=== PATIENT | female | born 1985 | race Caucasian/White ===

== ENCOUNTER 2016-05-13 13:45 | Emergency (ER) | payer BC, OTHER ==
[~2016-05-13 13:45] MED LIST: /DULO30CA OR; /ONDA4TA PO; /PANT40TA PO; /SUCR1TA OR; ACET-654 PO; ALPR0.25 PO; BUSP10TA PO; BUSP5TA PO; CARA1TAB2 PO; CIPR500T3 PO; CIPR500T89 PO; ENTO3CAP5 PO; FLAG250T PO; FLAG500T PO; FLUO40CA PO; FOLI1TAB86 PO; HUMERA; HUMI20KI SC; HUMI40KI2 SC; IBUP200T45 PO; LOESTRIN FE OR; MESA24CASA PO; NORC5TAB PO; OMEP20CA3 PO; OMEP20TA7 OR; ONDA1TAB15 PO; PENT500C PO; PERC5TAB6 PO; PRED10TA2 OR; PRED20TA OR; PRED20TA PO; PRIL40CA PO; PROZ20CA11 PO; TYLE325T5 PO; XANA1TAB2 PO; ZOFR20TA PO; [UNRECOGNIZED DRUG - OTHER] OR; [UNRECOGNIZED DRUG - REMARK] PO; loestrin
[2016-05-13] MEDS ORDERED: HYDROmorphone HCL 1 MG/ML SYRINGE (J1170) As Ordered ONE (16:06)
[2016-05-13] MEDS ORDERED: ONDANSETRON 4MG/2ML VIAL (J2405) As Ordered ONE (16:07)
--- NOTE | 2016-05-13 17:01 | EDDOCDS ---
Nurse's Notes [facility] Name: Yajaira Darling Age: 30 yrs Sex: Female : 1985 Arrival Date: 05/13/2016 Time: 13:45 Bed I1 / M1 Private MD: Andreas Teague MD Diagnosis: Headache-Acute Presentation: 05/13 13:58 Presenting complaint: Patient states: severe headache all day .Tried using Excedrin kr3 migraine and Tylenol with no relief. This patient has no additional risk factors. Adult Sepsis Screening: The patient does not have new or worsening altered mentation. Patient's respiratory rate is less than 22. Systolic blood pressure is greater than 100. Patient has a qSOFA score of 1- Negative Sepsis Screen. Suicide/Homicide risk assessment- the patient denies having any suicidal and/or homicidal ideations and does not present with any other emotional, behavioral or mental health complaints. Status: Patient is not a director of career services or dependent. Transition of care: patient was not received from another setting of care. 13:58 Acuity: [place] Level 4 kr3 13:58 Method Of Arrival: Wheelchair kr3 Triage Assessment: 14:00 Headache History: This patient has a history of headaches and the character of this kr3 headache is like all previous headaches. General: Appears in no apparent distress, comfortable, Behavior is appropriate for age. Pain: Pain currently is 8 out of 10 on a pain scale. Pain began this AM Also complains of nausea. HIV screening NA for this visit Offered previously. Neurological: Level of Consciousness is awake, alert, Reports headache numbness photophobia weakness. Respiratory: Respiratory effort is even, unlabored. Derm: Skin is pink, warm & dry. Historical: - Allergies: Benadrylheart racing if PO only; Bentyldiarrhea; Iron CR; Remicade (Anaphylaxis); - Home Meds: 1. bupropion HCl 75 mg Oral tab twice a day 2. buspirone 10 mg Oral tab 2 tabs 2 times per day 3. humara 40 mg every other week 4. Lupron Depot intramuscular Unknown once moly 5. omeprazole 20 mg Oral cpDR 1 cap 2 times per day 6. Pentasa 500 mg Oral cpER twice a day 7. Percocet 5-325 mg Oral tab 1 tab as needed as needed 8. Xanax Oral 1 tab as needed 9. Zofran (as hydrochloride) 4 mg Oral tab 2 tabs as needed (Last dose: 05/13/2016 08:30) 10. Prozac 20 mg Oral cap 1 cap once daily 11. mupirocin 2 % Topical oint as needed - PMHx: Anxiety; Crohn's; Depression; Endometriosis; GERD; IUD; - PSHx: Cholecystectomy; Cesearean Section; Bowel resection; - Social history: Smoking status: Patient uses tobacco products, current every day smoker. No barriers to communication noted, The patient speaks fluent Sudanese, Speaks appropriately for age. - Family history: Not pertinent. - : The pt / caregiver states he / she is not on anticoagulants. Home medication list is obtained from the patient. - Exposure Risk Screening:: None identified. Screenin:26 Screening information is obtained from the patient. Fall risk: No risks identified. dls Assistance ADL's: requires no assistance with activities of daily living. Abuse/DV Screen: The patient / caregiver reports he/she is: not in a situation that causes fear, pain or injury. Nutritional screening: No deficits noted. Advance Directives: Currently, there is no health care proxy. There is no active DNR order. There is no living will. There is no Power of Manager Safe. Advance directive information has not previously been placed in an [facility] medical record. home support is adequate. Assessment: 16:25 General: Appears uncomfortable, well developed, well nourished, well groomed, Behavior dls is cooperative. Pain: Location: top of head, left temporal area and right temporal area. Neurological: No deficits noted. EENT: No deficits noted. Cardiovascular: No deficits noted. Respiratory: No deficits noted. GI: No deficits noted. Reports nausea. : No deficits noted. Derm: No deficits noted. Musculoskeletal: No deficits noted. Vital Signs: 13:48 BP 136 / 82; Pulse 99; Resp 18 S; Temp 96.7(O); Pulse Ox 99% on R/A; Weight 78.47 kg gr2 (R); Height 5 ft. 2 in. (157.48 cm) (R); Pain 10/10; 16:36 BP 117 / 75; Pulse 84; Resp 20; Temp 97.6; Pulse Ox 99% ; Pain 2/10; jam1 13:48 Body Mass Index 31.64 (78.47 kg, 157.48 cm) gr2 Vitals: 13:48 Log In Time: May 13, 2016 at 13:48. gr2 ED Course: 13:48 Patient visited by Chapincito Roche. gr2 13:48 Andreas Teague is Private Physician. gr2 13:48 Patient moved to Waiting gr2 13:49 Patient visited by Chapincito Roche. gr2 13:49 Patient moved to Pre RCE gr2 13:58 Triage Initiated kr3 14:32 Patient moved to Triage 1 sew 14:51 [facility] Payment Agreement was scanned into [employer] and attached to record. lg 15:49 Bella Malagon [facility] ef1 15:49 Ambrose Mace MD is Attending Physician. ef1 15:50 Patient visited by Bella Malagon PA-C. ef1 16:01 Patient moved to I1 / M1 sew 16:24 Inserted saline lock: 20 gauge in right forearm and blood collected. The patient dls tolerated the procedure well. No procedures done that require assistance. 16:26 The patient / caregiver is instructed regarding the plan of care and ED course. dls Accompanied by Family Member, Patient has correct armband on for positive identification. Bed in low position. Call light in reach. Side rails up X 1. Adult w/ patient. 16:31 Patient visited by Bella Malagon PA-C. ef1 16:35 Andreas Teague is Referral Physician. ef1 16:35 Michael Nash MD is Referral Physician. ef1 16:59 Discontinued IV lock intact, bleeding controlled, pressure dressing applied, No dls redness/swelling at site. Administered Medications: 16:23 Drug: NS 0.9% 1000 ml [sodium chloride 0.9 % intravenous solution] Route: IV; Rate: dls bolus; Site: right forearm; 16:23 Drug: Ondansetron 4 mg [ondansetron HCl 2 mg/mL intravenous solution (2 mL)] Route: dls IVP; Site: right forearm; 16:40 Follow up: Response: Nausea is resolved dls 16:23 Drug: Dilaudid - HYDROmorphone 0.5 mg [hydromorphone 1 mg/mL injection syringe (0.5 dls mL)] Route: IVP; Site: right forearm; 16:39 Follow up: Response: Pain is decreased dls Order Results: There are currently no results for this order. Outcome: 16:35 Discharge ordered by Provider. ef1 16:59 Discharge Assessment: Patient awake, alert and oriented x 3. No cognitive and/or dls functional deficits noted. Patient verbalized understanding of disposition instructions. patient administered narcotics - yes. Pt provided with safe discharge. The following High Risk Discharge criteria are identified: None. Discharged to home with family. Condition: stable Condition: improved. Discharge instructions given to patient, Instructed on discharge instructions, follow up and referral plans. Demonstrated understanding of instructions, Pt was receptive of discharge instructions/ teaching. No special radiology studies were completed. Property sent home with patient. 17:00 Patient left the ED. dls Signatures: Lyly Arambula, MAGUI RN dls Danitza Hemphill, PROGRAMMING DIRECTOR PROGRAMMING DIRECTOR jam1 Sam Sprague Reg Reg lg Robie, Kathleen,RN RN kr3 Bella Malagon, PA-C PA-C ef1 Priscilla Zayas Gainslee gr2 Corrections: (The following items were deleted from the chart) 14:02 13:58 Presenting complaint: Patient states: severe headache all day. kr3 kr3 MTDD
--- NOTE | 2016-05-13 17:01 | EDDOCDS ---
Physician Documentation [facility] Name: Yajaira Darling Age: 30 yrs Sex: Female : 1985 Arrival Date: 05/13/2016 Time: 13:45 Bed I1 / M1 Private MD: Andreas Teague MD Disposition: 05/13/16 16:35 Discharged to Home/Self Care. Impression: Headache - Acute. - Condition is Stable. - Discharge Instructions: General Headache Without Cause. - Medication Reconciliation, Local Pharmacy Hours, Family Work Release form. - Follow up: Andreas Teague; When: 1 - 2 days; Reason: Recheck today's complaints, Continuance of care. Follow up: Emergency Department; Reason: Worsening of conditions. Follow up: Michael Nash; When: Call to arrange an appointment; Reason: Further diagnostic work-up, Recheck today's complaints, Continuance of care. - Problem is new. - Symptoms have improved. Historical: - Allergies: Benadrylheart racing if PO only; Bentyldiarrhea; Iron CR; Remicade (Anaphylaxis); - Home Meds: 1. bupropion HCl 75 mg Oral tab twice a day 2. buspirone 10 mg Oral tab 2 tabs 2 times per day 3. humara 40 mg every other week 4. Lupron Depot intramuscular Unknown once moly 5. omeprazole 20 mg Oral cpDR 1 cap 2 times per day 6. Pentasa 500 mg Oral cpER twice a day 7. Percocet 5-325 mg Oral tab 1 tab as needed as needed 8. Xanax Oral 1 tab as needed 9. Zofran (as hydrochloride) 4 mg Oral tab 2 tabs as needed (Last dose: 05/13/2016 08:30) 10. Prozac 20 mg Oral cap 1 cap once daily 11. mupirocin 2 % Topical oint as needed - PMHx: Anxiety; Crohn's; Depression; Endometriosis; GERD; IUD; - PSHx: Cholecystectomy; Cesearean Section; Bowel resection; - Social history: Smoking status: Patient uses tobacco products, current every day smoker. No barriers to communication noted, The patient speaks fluent Malawian, Speaks appropriately for age. - Family history: Not pertinent. - : The pt / caregiver states he / she is not on anticoagulants. Home medication list is obtained from the patient. - Exposure Risk Screening:: None identified. Vital Signs: 05/13 13:48 BP 136 / 82; Pulse 99; Resp 18 S; Temp 96.7(O); Pulse Ox 99% on R/A; Weight 78.47 kg / gr2 173 lbs (R); Height 5 ft. 2 in. (157.48 cm) (R); Pain 10/10; 16:36 BP 117 / 75; Pulse 84; Resp 20; Temp 97.6; Pulse Ox 99% ; Pain 2/10; jam1 13:48 Body Mass Index 31.64 (78.47 kg, 157.48 cm) gr2 MDM: 14:51 [facility] Payment Agreement was scanned into [employer] and attached to record. lg 15:59 IV Saline Lock ordered. ef1 15:59 NS 0.9% 1000 ml IV at bolus once ordered. ef1 15:59 Ondansetron 4 mg IVP once ordered. ef1 15:59 Dilaudid - HYDROmorphone 0.5 mg IVP once ordered. ef1 16:28 Financial registration complete. gb Administered Medications: 16:23 Drug: NS 0.9% 1000 ml [sodium chloride 0.9 % intravenous solution] Route: IV; Rate: dls bolus; Site: right forearm; 16:23 Drug: Ondansetron 4 mg [ondansetron HCl 2 mg/mL intravenous solution (2 mL)] Route: dls IVP; Site: right forearm; 16:40 Follow up: Response: Nausea is resolved dls 16:23 Drug: Dilaudid - HYDROmorphone 0.5 mg [hydromorphone 1 mg/mL injection syringe (0.5 dls mL)] Route: IVP; Site: right forearm; 16:39 Follow up: Response: Pain is decreased dls Signatures: Lyly Arambula RN MAGUI dls Barbara Chen, Reg Reg gb Sam Sprague, Reg Reg lg Yue Fleming,RN RN kr3 Bella Malagon, REGINE PAEverette ef1 The chart was reviewed and I authenticate all verbal orders and agree with the evaluation and treatment provided.Attachments: 14:51 [facility] Payment Agreement lg MTDD
--- NOTE | 2016-05-15 18:01 | EDDOCDS ---
Physician Documentation [facility] Name: Yajaira Darling Age: 30 yrs Sex: Female : 1985 Arrival Date: 05/13/2016 Time: 13:45 Bed I1 / M1 Private MD: Andreas Teague MD Disposition: 05/13/16 16:35 Discharged to Home/Self Care. Impression: Headache - Acute. - Condition is Stable. - Discharge Instructions: General Headache Without Cause. - Medication Reconciliation, Local Pharmacy Hours, Family Work Release form. - Follow up: Andreas Teague; When: 1 - 2 days; Reason: Recheck today's complaints, Continuance of care. Follow up: Emergency Department; Reason: Worsening of conditions. Follow up: Michael Nash; When: Call to arrange an appointment; Reason: Further diagnostic work-up, Recheck today's complaints, Continuance of care. - Problem is new. - Symptoms have improved. Historical: - Allergies: Benadrylheart racing if PO only; Bentyldiarrhea; Iron CR; Remicade (Anaphylaxis); - Home Meds: 1. bupropion HCl 75 mg Oral tab twice a day 2. buspirone 10 mg Oral tab 2 tabs 2 times per day 3. humara 40 mg every other week 4. Lupron Depot intramuscular Unknown once moly 5. omeprazole 20 mg Oral cpDR 1 cap 2 times per day 6. Pentasa 500 mg Oral cpER twice a day 7. Percocet 5-325 mg Oral tab 1 tab as needed as needed 8. Xanax Oral 1 tab as needed 9. Zofran (as hydrochloride) 4 mg Oral tab 2 tabs as needed (Last dose: 05/13/2016 08:30) 10. Prozac 20 mg Oral cap 1 cap once daily 11. mupirocin 2 % Topical oint as needed - PMHx: Anxiety; Crohn's; Depression; Endometriosis; GERD; IUD; - PSHx: Cholecystectomy; Cesearean Section; Bowel resection; - Social history: Smoking status: Patient uses tobacco products, current every day smoker. No barriers to communication noted, The patient speaks fluent Micronesian, Speaks appropriately for age. - Family history: Not pertinent. - : The pt / caregiver states he / she is not on anticoagulants. Home medication list is obtained from the patient. - Exposure Risk Screening:: None identified. Vital Signs: 05/13 13:48 BP 136 / 82; Pulse 99; Resp 18 S; Temp 96.7(O); Pulse Ox 99% on R/A; Weight 78.47 kg / gr2 173 lbs (R); Height 5 ft. 2 in. (157.48 cm) (R); Pain 10/10; 16:36 BP 117 / 75; Pulse 84; Resp 20; Temp 97.6; Pulse Ox 99% ; Pain 2/10; jam1 13:48 Body Mass Index 31.64 (78.47 kg, 157.48 cm) gr2 MDM: 14:51 [facility] Payment Agreement was scanned into [employer] and attached to record. lg 15:59 IV Saline Lock ordered. ef1 15:59 NS 0.9% 1000 ml IV at bolus once ordered. ef1 15:59 Ondansetron 4 mg IVP once ordered. ef1 15:59 Dilaudid - HYDROmorphone 0.5 mg IVP once ordered. ef1 16:28 Financial registration complete. 05/14 12:40 T-Sheet-- Draft Copy was scanned into [employer] and attached to record. Administered Medications: 05/13 16:23 Drug: NS 0.9% 1000 ml [sodium chloride 0.9 % intravenous solution] Route: IV; Rate: dls bolus; Site: right forearm; 16:23 Drug: Ondansetron 4 mg [ondansetron HCl 2 mg/mL intravenous solution (2 mL)] Route: dls IVP; Site: right forearm; 16:40 Follow up: Response: Nausea is resolved dls 16:23 Drug: Dilaudid - HYDROmorphone 0.5 mg [hydromorphone 1 mg/mL injection syringe (0.5 dls mL)] Route: IVP; Site: right forearm; 16:39 Follow up: Response: Pain is decreased dls Signatures: Lyly Arambula RN RN dls Barbara Chen, Reg Reg gb Sam Sprague, Reg Reg lg Yue Fleming RN RN kr3 Bella Malagon, PADomingoC PADomingoC ef1 The chart was reviewed and I authenticate all verbal orders and agree with the evaluation and treatment provided.Attachments: 14:51 [facility] Payment Agreement lg 05/14 12:40 T-Sheet-- Draft Copy gb Chart Complete MTDD
--- NOTE | 2016-05-15 18:01 | EDDOCDS ---
Physician Documentation [facility] Name: Yajaira Darling Age: 30 yrs Sex: Female : 1985 Arrival Date: 05/13/2016 Time: 13:45 Bed I1 / M1 Private MD: Andreas Teague MD Disposition: 05/13/16 16:35 Discharged to Home/Self Care. Impression: Headache - Acute. - Condition is Stable. - Discharge Instructions: General Headache Without Cause. - Medication Reconciliation, Local Pharmacy Hours, Family Work Release form. - Follow up: Andreas Teague; When: 1 - 2 days; Reason: Recheck today's complaints, Continuance of care. Follow up: Emergency Department; Reason: Worsening of conditions. Follow up: Michael Nash; When: Call to arrange an appointment; Reason: Further diagnostic work-up, Recheck today's complaints, Continuance of care. - Problem is new. - Symptoms have improved. Historical: - Allergies: Benadrylheart racing if PO only; Bentyldiarrhea; Iron CR; Remicade (Anaphylaxis); - Home Meds: 1. bupropion HCl 75 mg Oral tab twice a day 2. buspirone 10 mg Oral tab 2 tabs 2 times per day 3. humara 40 mg every other week 4. Lupron Depot intramuscular Unknown once moly 5. omeprazole 20 mg Oral cpDR 1 cap 2 times per day 6. Pentasa 500 mg Oral cpER twice a day 7. Percocet 5-325 mg Oral tab 1 tab as needed as needed 8. Xanax Oral 1 tab as needed 9. Zofran (as hydrochloride) 4 mg Oral tab 2 tabs as needed (Last dose: 05/13/2016 08:30) 10. Prozac 20 mg Oral cap 1 cap once daily 11. mupirocin 2 % Topical oint as needed - PMHx: Anxiety; Crohn's; Depression; Endometriosis; GERD; IUD; - PSHx: Cholecystectomy; Cesearean Section; Bowel resection; - Social history: Smoking status: Patient uses tobacco products, current every day smoker. No barriers to communication noted, The patient speaks fluent Andorran, Speaks appropriately for age. - Family history: Not pertinent. - : The pt / caregiver states he / she is not on anticoagulants. Home medication list is obtained from the patient. - Exposure Risk Screening:: None identified. Vital Signs: 05/13 13:48 BP 136 / 82; Pulse 99; Resp 18 S; Temp 96.7(O); Pulse Ox 99% on R/A; Weight 78.47 kg / gr2 173 lbs (R); Height 5 ft. 2 in. (157.48 cm) (R); Pain 10/10; 16:36 BP 117 / 75; Pulse 84; Resp 20; Temp 97.6; Pulse Ox 99% ; Pain 2/10; jam1 13:48 Body Mass Index 31.64 (78.47 kg, 157.48 cm) gr2 MDM: 14:51 [facility] Payment Agreement was scanned into [employer] and attached to record. lg 15:59 IV Saline Lock ordered. ef1 15:59 NS 0.9% 1000 ml IV at bolus once ordered. ef1 15:59 Ondansetron 4 mg IVP once ordered. ef1 15:59 Dilaudid - HYDROmorphone 0.5 mg IVP once ordered. ef1 16:28 Financial registration complete. 05/14 12:40 T-Sheet-- Draft Copy was scanned into [employer] and attached to record. Administered Medications: 05/13 16:23 Drug: NS 0.9% 1000 ml [sodium chloride 0.9 % intravenous solution] Route: IV; Rate: dls bolus; Site: right forearm; 16:23 Drug: Ondansetron 4 mg [ondansetron HCl 2 mg/mL intravenous solution (2 mL)] Route: dls IVP; Site: right forearm; 16:40 Follow up: Response: Nausea is resolved dls 16:23 Drug: Dilaudid - HYDROmorphone 0.5 mg [hydromorphone 1 mg/mL injection syringe (0.5 dls mL)] Route: IVP; Site: right forearm; 16:39 Follow up: Response: Pain is decreased dls Signatures: Lyly Arambula RN RN dls Barbara Chen, Reg Reg gb Sam Sprague, Reg Reg lg Yue Fleming RN RN kr3 Bella Malagon, PADomingoC PADomingoC ef1 The chart was reviewed and I authenticate all verbal orders and agree with the evaluation and treatment provided.Attachments: 14:51 [facility] Payment Agreement lg 05/14 12:40 T-Sheet-- Draft Copy gb Chart Complete MTDD
--- NOTE | 2016-05-15 18:01 | EDDOCDS ---
Nurse's Notes [facility] Name: Yajaira Darling Age: 30 yrs Sex: Female : 1985 Arrival Date: 05/13/2016 Time: 13:45 Bed I1 / M1 Private MD: Andreas Teague MD Diagnosis: Headache-Acute Presentation: 05/13 13:58 Presenting complaint: Patient states: severe headache all day .Tried using Excedrin kr3 migraine and Tylenol with no relief. This patient has no additional risk factors. Adult Sepsis Screening: The patient does not have new or worsening altered mentation. Patient's respiratory rate is less than 22. Systolic blood pressure is greater than 100. Patient has a qSOFA score of 1- Negative Sepsis Screen. Suicide/Homicide risk assessment- the patient denies having any suicidal and/or homicidal ideations and does not present with any other emotional, behavioral or mental health complaints. Status: Patient is not a services engineer or dependent. Transition of care: patient was not received from another setting of care. 13:58 Acuity: [place] Level 4 kr3 13:58 Method Of Arrival: Wheelchair kr3 Triage Assessment: 14:00 Headache History: This patient has a history of headaches and the character of this kr3 headache is like all previous headaches. General: Appears in no apparent distress, comfortable, Behavior is appropriate for age. Pain: Pain currently is 8 out of 10 on a pain scale. Pain began this AM Also complains of nausea. HIV screening NA for this visit Offered previously. Neurological: Level of Consciousness is awake, alert, Reports headache numbness photophobia weakness. Respiratory: Respiratory effort is even, unlabored. Derm: Skin is pink, warm & dry. Historical: - Allergies: Benadrylheart racing if PO only; Bentyldiarrhea; Iron CR; Remicade (Anaphylaxis); - Home Meds: 1. bupropion HCl 75 mg Oral tab twice a day 2. buspirone 10 mg Oral tab 2 tabs 2 times per day 3. humara 40 mg every other week 4. Lupron Depot intramuscular Unknown once moly 5. omeprazole 20 mg Oral cpDR 1 cap 2 times per day 6. Pentasa 500 mg Oral cpER twice a day 7. Percocet 5-325 mg Oral tab 1 tab as needed as needed 8. Xanax Oral 1 tab as needed 9. Zofran (as hydrochloride) 4 mg Oral tab 2 tabs as needed (Last dose: 05/13/2016 08:30) 10. Prozac 20 mg Oral cap 1 cap once daily 11. mupirocin 2 % Topical oint as needed - PMHx: Anxiety; Crohn's; Depression; Endometriosis; GERD; IUD; - PSHx: Cholecystectomy; Cesearean Section; Bowel resection; - Social history: Smoking status: Patient uses tobacco products, current every day smoker. No barriers to communication noted, The patient speaks fluent [place], Speaks appropriately for age. - Family history: Not pertinent. - : The pt / caregiver states he / she is not on anticoagulants. Home medication list is obtained from the patient. - Exposure Risk Screening:: None identified. Screenin:26 Screening information is obtained from the patient. Fall risk: No risks identified. dls Assistance ADL's: requires no assistance with activities of daily living. Abuse/DV Screen: The patient / caregiver reports he/she is: not in a situation that causes fear, pain or injury. Nutritional screening: No deficits noted. Advance Directives: Currently, there is no health care proxy. There is no active DNR order. There is no living will. There is no Power of High Density Press Operator. Advance directive information has not previously been placed in an [facility] medical record. home support is adequate. Assessment: 16:25 General: Appears uncomfortable, well developed, well nourished, well groomed, Behavior dls is cooperative. Pain: Location: top of head, left temporal area and right temporal area. Neurological: No deficits noted. EENT: No deficits noted. Cardiovascular: No deficits noted. Respiratory: No deficits noted. GI: No deficits noted. Reports nausea. : No deficits noted. Derm: No deficits noted. Musculoskeletal: No deficits noted. Vital Signs: 13:48 BP 136 / 82; Pulse 99; Resp 18 S; Temp 96.7(O); Pulse Ox 99% on R/A; Weight 78.47 kg gr2 (R); Height 5 ft. 2 in. (157.48 cm) (R); Pain 10/10; 16:36 BP 117 / 75; Pulse 84; Resp 20; Temp 97.6; Pulse Ox 99% ; Pain 2/10; jam1 13:48 Body Mass Index 31.64 (78.47 kg, 157.48 cm) gr2 Vitals: 13:48 Log In Time: May 13, 2016 at 13:48. gr2 ED Course: 13:48 Patient visited by Chapincito Roche. gr2 13:48 Andreas Teague is Private Physician. gr2 13:48 Patient moved to Waiting gr2 13:49 Patient visited by Chapincito Roche. gr2 13:49 Patient moved to Pre RCE gr2 13:58 Triage Initiated kr3 14:32 Patient moved to Triage 1 sew 14:51 [facility] Payment Agreement was scanned into [employer] and attached to record. lg 15:49 Bella Malagon [facility]-C [facility] ef1 15:49 Ambrose Mace MD is Attending Physician. ef1 15:50 Patient visited by Bella Malagon PA-C. ef1 16:01 Patient moved to I1 / M1 sew 16:24 Inserted saline lock: 20 gauge in right forearm and blood collected. The patient dls tolerated the procedure well. No procedures done that require assistance. 16:26 The patient / caregiver is instructed regarding the plan of care and ED course. dls Accompanied by Family Member, Patient has correct armband on for positive identification. Bed in low position. Call light in reach. Side rails up X 1. Adult w/ patient. 16:31 Patient visited by Bella Malagon PA-C. ef1 16:35 Andreas Teague is Referral Physician. ef1 16:35 Michael Nash MD is Referral Physician. ef1 16:59 Discontinued IV lock intact, bleeding controlled, pressure dressing applied, No dls redness/swelling at site. 05/14 12:40 T-Sheet-- Draft Copy was scanned into [employer] and attached to record. gb Administered Medications: 05/13 16:23 Drug: NS 0.9% 1000 ml [sodium chloride 0.9 % intravenous solution] Route: IV; Rate: dls bolus; Site: right forearm; 16:23 Drug: Ondansetron 4 mg [ondansetron HCl 2 mg/mL intravenous solution (2 mL)] Route: dls IVP; Site: right forearm; 16:40 Follow up: Response: Nausea is resolved dls 16:23 Drug: Dilaudid - HYDROmorphone 0.5 mg [hydromorphone 1 mg/mL injection syringe (0.5 dls mL)] Route: IVP; Site: right forearm; 16:39 Follow up: Response: Pain is decreased dls Order Results: There are currently no results for this order. Outcome: 16:35 Discharge ordered by Provider. ef1 16:59 Discharge Assessment: Patient awake, alert and oriented x 3. No cognitive and/or dls functional deficits noted. Patient verbalized understanding of disposition instructions. patient administered narcotics - yes. Pt provided with safe discharge. The following High Risk Discharge criteria are identified: None. Discharged to home with family. Condition: stable Condition: improved. Discharge instructions given to patient, Instructed on discharge instructions, follow up and referral plans. Demonstrated understanding of instructions, Pt was receptive of discharge instructions/ teaching. No special radiology studies were completed. Property sent home with patient. 17:00 Patient left the ED. dls Signatures: Lyly Arambula, RN RN dls Danitza Hemphill, CHARGE ATTENDANT CHARGE ATTENDANT jam1 Barbara Chen, Reg Reg gb Sam Sprague, Reg Reg lg Yue Fleming,RN RN kr3 Bella Malagon, PA-C PA-C ef1 Priscilla Zayas Gainslee gr2 Corrections: (The following items were deleted from the chart) 14:02 13:58 Presenting complaint: Patient states: severe headache all day. kr3 kr3 Chart Complete MTDD
== END 2016-05-13 17:00 | disposition home or self-care (01) ==
LOC: M ED 13:45
DX: R51 Headache (principal); R11.0 Nausea; K50.90 Crohn's disease, unspecified, without complications; F41.9 Anxiety disorder, unspecified; F32.9 Major depressive disorder, single episode, unspecified; N80.9 Endometriosis, unspecified; K21.9 Gastro-esophageal reflux disease without esophagitis; F17.210 Nicotine dependence, cigarettes, uncomplicated; Z79.891 Long term (current) use of opiate analgesic; Z79.899 Other long term (current) drug therapy; Z88.8 Allergy status to other drugs, medicaments and biological substances
CPT/HCPCS: 36415; 96374; 96375; 99284; J1170; J2405

== ENCOUNTER 2016-07-25 10:23 | Emergency (ER) | payer BC, OTHER ==
[~2016-07-25] VITALS: Ht 157.5 cm; Wt 77.1 kg
[~2016-07-25 10:23] MED LIST changes: +NORC1TAB4 PO; -NORC5TAB PO
[2016-07-25] MEDS ORDERED: NS 1,000 ML IV ONE (11:00)
[2016-07-25] MEDS ORDERED: HYDROmorphone HCL 1 MG/ML SYRINGE (J1170) IV ONE ×2 (11:00→13:15)
[2016-07-25] MEDS ORDERED: ONDANSETRON 4MG/2ML VIAL (J2405) IV ONE (11:00)
[2016-07-25 12:48] LABS: BASO % 0.3 % (0.0-1.0); EOS # 0.1 K/mm3 (0.0-0.50); EOS % 1.8 % (0.0-3.0); LARGE UNSTAINED CELL # 0.1 K/mm3 (0.0-0.4); LARGE UNSTAINED CELL % 1.7 % (0.0-4.0); LYMPH # 0.7 K/mm3 (1.5-4.5); LYMPH % 12.5 % (24.0-44.0); MEAN CORPUSCULAR HEMOGLOBIN 25.5 pg (27.0-33.0); MEAN CORPUSCULAR HGB CONC 30.7 g/dl (32.0-36.5); MONO # 0.6 K/mm3 (0.0-0.8); MONO % 12.1 % (0.0-5.0); NEUTROPHILS # 3.4 K/mm3 (1.8-7.7); NEUTROPHILS % 71.6 % (36.0-66.0); PLATELET COUNT, AUTOMATED 368 k/mm3 (150-450); RED CELL DISTRIBUTION WIDTH 14.6 % (11.5-14.5); WHITE BLOOD COUNT 4.7 K/mm3 (4.0-10.0)
[2016-07-25] MEDS ORDERED: ISOVUE-370 76% 100ML VIAL (Q9967) As Ordered ONE (12:51)
[2016-07-25 13:03] LABS: ALBUMIN 2.6 GM/DL (3.2-5.2); ALBUMIN/GLOBULIN RATIO 0.87 (1.00-1.93); ALKALINE PHOSPHATASE 75 U/L (45-117); ALT/SGPT 21 U/L (12-78); AMYLASE 34 U/L (25-115); ANION GAP 8 MEQ/L (8-16); AST/SGOT 18 U/L (15-37); BILIRUBIN,DIRECT 0.1 MG/DL (0.0-0.2); BILIRUBIN,TOTAL 0.3 MG/DL (0.2-1.0); BLOOD UREA NITROGEN 14 MG/DL (7-18); CARBON DIOXIDE LEVEL 25 MEQ/L (21-32); CHLORIDE LEVEL 109 MEQ/L (98-107); CREATININE FOR GFR 0.64 MG/DL (0.55-1.02); GLOMERULAR FILTRATION RATE > 60.0 (>60); GLUCOSE, FASTING 89 MG/DL (70-105); POTASSIUM SERUM 3.5 MEQ/L (3.5-5.1); SODIUM LEVEL 142 MEQ/L (136-145); TOTAL PROTEIN 5.6 GM/DL (6.4-8.2)
[2016-07-25 14:08] VITALS: BP 111/65
--- NOTE | 2016-07-25 14:28 | REP ---
CT abdomen pelvis with IV contrast but without bowel contrast: Comparison is 03/24/2016. The patient has a history of endometriosis and Crohn disease and states she has had a cholecystectomy and a 3 inches of small intestine removed and has had a colon resection. The patient states she has had two c-sections.. She complains of abdominal pain. The visualized lung brennan are unremarkable. The hepatic parenchyma is homogeneous. The gallbladder surgically absent. Pancreas and spleen are unremarkable. The adrenals and kidneys are unremarkable. The abdominal aorta is unremarkable. There are sequential loops of small bowel that are dilated in the mid abdomen. This may represent multiple small bowel structures. Additionally, on the right there is a an elongated segment of small bowel that is narrowed, possibly an elongated stricture. There is no evidence of small bowel obstruction. There are circumferential surgical gabriel in the more proximal dilated small bowel consistent with history of small bowel resection. There is no small bowel obstruction. There is no distension of colonic loops. No surgical suture lines are identified in the colon. The terminal ileum is normal appearance. There is wall thickening enhancement of the mid and a distal small bowel loops compatible with enteritis. There is no ascites, however, there are multiple mesenteric lymph nodes many of which are borderline enlarged. This is unchanged. Pelvis: There is no ascites or adenopathy. There is an IUD in the endometrial canal. The uterus is otherwise unremarkable. The adnexa are unremarkable. Impression: There are multiple segmental zones of dilated small bowel, possibly from multiple small-bowel strictures. There is a surgical staple line in the more proximal dilated small bowel consistent with the history of partial small bowel resection. There is an elongated narrowed loop of small bowel in the abdomen on the right, possibly an elongated stricture. However, there is no evidence of small bowel obstruction. The terminal ileum has a normal appearance. However, there are multiple loops of mid small bowel that demonstrate wall thickening and enhancement compatible with enteritis. There are numerous mesenteric nodes most of which are borderline enlarged. There is no ascites. There is an IUD in the uterus. The patient has a cholecystectomy. Signed by Lauri Parmar MD 07/25/2016 02:20 P
[2016-07-25] MEDS ORDERED: PERC5TAB6 PO (14:43)
--- NOTE | 2016-07-27 14:28 | ED PDOC ---
Post-Departure Follow-Up dr jaspreet lomeli faxed formal report of ct abd/p for fu arnoldg Brent Lim MD Jul 27, 2016 14:28
== END 2016-07-25 14:51 | disposition home or self-care (01) ==
LOC: M ED 11:04
DX: K50.018 Crohn's disease of small intestine with other complication (principal); K56.60 Unspecified intestinal obstruction; N80.9 Endometriosis, unspecified; F33.9 Major depressive disorder, recurrent, unspecified; F17.210 Nicotine dependence, cigarettes, uncomplicated; Z79.899 Other long term (current) drug therapy; Z79.818 Long term (current) use of other agents affecting estrogen receptors and estrogen levels; Z88.8 Allergy status to other drugs, medicaments and biological substances; Z91.041 Radiographic dye allergy status; Z88.5 Allergy status to narcotic agent; Z90.49 Acquired absence of other specified parts of digestive tract
CPT/HCPCS: 36415; 74177; 80048; 80076; 81001; 81025; 82150; 83690; 85025; 96361; 96374; 96375; 96376; 99283; J1170; J2405; Q9967

== ENCOUNTER 2016-09-26 04:04 | Emergency (ER) | payer BC, OTHER ==
[~2016-09-26] VITALS: Ht 157.5 cm; Wt 80.7 kg
[2016-09-26 04:10] VITALS: BP 135/89
[2016-09-26 05:56] LABS: BASO % 0.2 % (0.0-1.0); EOS # 0.4 K/mm3 (0.0-0.50); EOS % 4.3 % (0.0-3.0); LARGE UNSTAINED CELL # 0.1 K/mm3 (0.0-0.4); LARGE UNSTAINED CELL % 1.5 % (0.0-4.0); LYMPH # 1.5 K/mm3 (1.5-4.5); LYMPH % 18.7 % (24.0-44.0); MEAN CORPUSCULAR HEMOGLOBIN 25.5 pg (27.0-33.0); MEAN CORPUSCULAR HGB CONC 30.7 g/dl (32.0-36.5); MEAN CORPUSCULAR VOLUME 83.2 fl (80.0-96.0); MONO # 0.4 K/mm3 (0.0-0.8); MONO % 4.9 % (0.0-5.0); NEUTROPHILS # 5.7 K/mm3 (1.8-7.7); NEUTROPHILS % 70.3 % (36.0-66.0); PLATELET COUNT, AUTOMATED 412 k/mm3 (150-450); RED CELL DISTRIBUTION WIDTH 14.7 % (11.5-14.5); WHITE BLOOD COUNT 8.2 K/mm3 (4.0-10.0)
[2016-09-26 06:03] LABS: CONTROL LINE HCG INT CTR LINE PRESENT
[2016-09-26 06:09] LABS: ANION GAP 6 MEQ/L (8-16); BLOOD UREA NITROGEN 13 MG/DL (7-18); CALCIUM LEVEL 8.5 MG/DL (8.5-10.1); CARBON DIOXIDE LEVEL 28 MEQ/L (21-32); CHLORIDE LEVEL 107 MEQ/L (98-107); CREATININE FOR GFR 0.74 MG/DL (0.55-1.02); GLOMERULAR FILTRATION RATE > 60.0 (>60); GLUCOSE, FASTING 85 MG/DL (70-105); POTASSIUM SERUM 3.8 MEQ/L (3.5-5.1); SODIUM LEVEL 141 MEQ/L (136-145)
[2016-09-26] MEDS ORDERED: ISOVUE-370 76% 100ML VIAL (Q9967) As Ordered ONE (06:22)
--- NOTE | 2016-09-26 06:51 | REP ---
Clinical: Post surgical abdominal pain. Evaluate for abscess. Comparison: 07/25/2016. Technique: Axial contrast enhanced images from the lung bases to the pubic symphysis using 100 ml Isovue 370 intravenous contrast material with coronal and sagittal re-formations. Findings: Lung bases demonstrate minimal posterior basilar dependent changes. Visualized heart and pericardium normal. Liver, spleen, pancreas, bilateral adrenal glands and kidneys are normal. The patient is status post cholecystectomy. Evaluation of the enteric system demonstrates small bowel anastomoses in the left mid abdomen with adjacent lymph nodes measuring up to approximately 12 mm short axis diameter which are nonspecific in the postoperative setting. There is no evidence for bowel obstruction, and previously suggested enteritis appears to have resolved. No free air, free fluid, drainable collection/abscess identified. Right lower quadrant demonstrates normal terminal ileum and appendix. Few sigmoid diverticula noted without acute diverticulitis. Pelvis demonstrates normal bladder and age-appropriate uterus/adnexa with IUD in satisfactory position. Trace mesenteric stranding in the pelvis and the midline abdomen along with small amount of gas in the midline subcutaneous tissues again consistent with recent surgery and no associated drainable collection/abscess. Vascular structures are intact and normal. Musculoskeletal structures are intact and normal. Impression: 1. Postsurgical changes as described above appear mildly improved when compared to prior examination. Few residual mesenteric lymph nodes measuring up to 12 mm short axis diameter are nonspecific. No evidence for free fluid, free air, or drainable collection/abscess. 2. Small bowel an anastomosis appears normal and the previously suggested acute enteritis appears to have resolved. 3. A small amount of residual foci of gas in the midline subcutaneous tissues adjacent to the postsurgical granulation tissue likely represents continued residual subtle postoperative changes. Signed by Juan Antonio Mccabe MD 09/26/2016 06:43 A
== END 2016-09-26 07:09 | disposition home or self-care (01) ==
LOC: M ED 04:56
DX: T81.89XA Other complications of procedures, not elsewhere classified, initial encounter (principal); Z90.49 Acquired absence of other specified parts of digestive tract; K50.919 Crohn's disease, unspecified, with unspecified complications; Z79.899 Other long term (current) drug therapy; Z88.5 Allergy status to narcotic agent; Z91.041 Radiographic dye allergy status; Z88.8 Allergy status to other drugs, medicaments and biological substances; Y92.9 Unspecified place or not applicable; Y93.9 Activity, unspecified; X58.XXXA Exposure to other specified factors, initial encounter; Y99.9 Unspecified external cause status
CPT/HCPCS: 74177; 80048; 84703; 85025; 99282; Q9967

== ENCOUNTER 2017-09-07 13:38 | Emergency (ER) | payer BC, OTHER ==
[2017-09-07 13:41] LABS: BASO % 0.3 % (0.0-1.0); EOS # 0.1 10^3/uL (0.0-0.50); EOS % 1.9 % (0.0-3.0); HEMATOCRIT 42.2 % (36.0-47.0); HEMOGLOBIN 13.9 g/dl (12.0-15.5); IMMATURE GRANULOCYTE % 0.3 % (0-3.0); LYMPH # 1.1 10^3/uL (1.5-4.5); LYMPH % 15.1 % (24.0-44.0); MEAN CORPUSCULAR HEMOGLOBIN 29.7 pg (27.0-33.0); MEAN CORPUSCULAR HGB CONC 32.9 g/dl (32.0-36.5); MEAN CORPUSCULAR VOLUME 90.2 fl (80.0-96.0); MONO # 0.6 10^3/uL (0.0-0.8); MONO % 8.3 % (0.0-5.0); NEUTROPHILS # 5.2 10^3/uL (1.8-7.7); NEUTROPHILS % 74.1 % (36.0-66.0); PLATELET COUNT, AUTOMATED 259 10^3/uL (150-450); RED BLOOD COUNT 4.68 10^6/uL (4.00-5.40); RED CELL DISTRIBUTION WIDTH 14.2 % (11.5-14.5)
[2017-09-07] MEDS: NS 1,000 ML IV (13:45)
[2017-09-07] MEDS: METOCLOPRAMIDE INJ 10MG/2ML VIAL (J2765) IV (13:46)
[2017-09-07] MEDS: HYDROmorphone HCL 1 MG/ML SYRINGE (J1170) IV (13:46)
[2017-09-07 14:07] LABS: ALBUMIN 3.2 GM/DL (3.2-5.2); ALBUMIN/GLOBULIN RATIO 0.94 (1.00-1.93); ALKALINE PHOSPHATASE 108 U/L (45-117); ALT/SGPT 80 U/L (12-78); ANION GAP 6 MEQ/L (8-16); AST/SGOT 74 U/L (7-37); BILIRUBIN,TOTAL 0.3 MG/DL (0.2-1.0); BLOOD UREA NITROGEN 7 MG/DL (7-18); CALCIUM LEVEL 8.1 MG/DL (8.5-10.1); CARBON DIOXIDE LEVEL 24 MEQ/L (21-32); CHLORIDE LEVEL 111 MEQ/L (98-107); CREATININE FOR GFR 0.51 MG/DL (0.55-1.30); GLOMERULAR FILTRATION RATE > 60.0 (>60); GLUCOSE, FASTING 86 MG/DL (70-100); POTASSIUM SERUM 3.6 MEQ/L (3.5-5.1); SODIUM LEVEL 141 MEQ/L (136-145); TOTAL PROTEIN 6.6 GM/DL (6.4-8.2)
== END 2017-09-07 15:28 | disposition home or self-care (01) ==
LOC: M ED 13:38
DX: K50.90 Crohn's disease, unspecified, without complications (principal); N80.9 Endometriosis, unspecified; M54.9 Dorsalgia, unspecified; Z72.0 Tobacco use; Z79.899 Other long term (current) drug therapy; Z88.5 Allergy status to narcotic agent; Z88.8 Allergy status to other drugs, medicaments and biological substances; Z91.041 Radiographic dye allergy status
CPT/HCPCS: J1170

== ENCOUNTER 2019-06-08 12:31 | Emergency (ER) | payer BC, OTHER ==
[~2019-06-08] VITALS: Ht 157.5 cm; Wt 90.7 kg
[~2019-06-08 12:31] MED LIST changes: -/DULO30CA OR; -/ONDA4TA PO; -/PANT40TA PO; -/SUCR1TA OR; -ACET-654 PO; +ACET1TAB55 PO; +CARA1TAB6 PO; +CIPR-249 PO; -CIPR500T89 PO; +CYMB1CAP5 OR; +HUMI40KI2; +HYDR-3715 PO; -NORC1TAB4 PO; +NORC1TAB7 PO; +OMEP1CAP73 PO; -OMEP20CA3 PO; +ONDA-1 PO; +ONDA-83 PO; -ONDA1TAB15 PO; +PERC5TAB12 PO; -PERC5TAB6 PO; +PROT1TAB2 PO; +SUCR1TAB56 OR; -ZOFR20TA PO; +ZOFR4TAB16 PO
[2019-06-08 13:23] LABS: BASO % 0.1 % (0.0-1.0); EOS % 0.3 % (0.0-3.0); HEMATOCRIT 42.2 % (36.0-47.0); HEMOGLOBIN 13.8 g/dl (12.0-15.5); LYMPH # 3.5 10^3/uL (1.5-5.0); LYMPH % 24.2 % (24.0-44.0); MEAN CORPUSCULAR HEMOGLOBIN 29.3 pg (27.0-33.0); MEAN CORPUSCULAR HGB CONC 32.7 g/dl (32.0-36.5); MEAN CORPUSCULAR VOLUME 89.6 fl (80.0-96.0); MONO % 7.2 % (0.0-5.0); NEUTROPHILS # 9.8 10^3/uL (1.5-8.5); NEUTROPHILS % 67.7 % (36.0-66.0); PLATELET COUNT, AUTOMATED 332 10^3/uL (150-450); RED BLOOD COUNT 4.71 10^6/uL (4.00-5.40); WHITE BLOOD COUNT 14.5 10^3/uL (4.0-10.0)
[2019-06-08] MEDS ORDERED: MERC50TA2 PO (13:29)
[2019-06-08] MEDS ORDERED: PRED20TA PO (13:29)
[2019-06-08 13:52] LABS: ALBUMIN 3.5 GM/DL (3.2-5.2); ALT/SGPT 22 U/L (12-78); BILIRUBIN,DIRECT < 0.1 MG/DL (0.0-0.2); BILIRUBIN,TOTAL 0.5 MG/DL (0.2-1.0); BLOOD UREA NITROGEN 13 MG/DL (7-18); CALCIUM LEVEL 9.1 MG/DL (8.5-10.1); CARBON DIOXIDE LEVEL 25 MEQ/L (21-32); CHLORIDE LEVEL 109 MEQ/L (98-107); CREATININE FOR GFR 0.71 MG/DL (0.55-1.30); GLOMERULAR FILTRATION RATE > 60.0 (>60); GLUCOSE, FASTING 74 MG/DL (70-100); LIPASE 102 U/L (73-393); POTASSIUM SERUM 4.2 MEQ/L (3.5-5.1); SODIUM LEVEL 140 MEQ/L (136-145); TOTAL PROTEIN 6.7 GM/DL (6.4-8.2)
[2019-06-08] MEDS ORDERED: METOCLOPRAMIDE INJ 10MG/2ML VIAL (J2765) IV ONE (14:00)
[2019-06-08] MEDS ORDERED: NS 1,000 ML IV SCH (14:00)
[2019-06-08] MEDS ORDERED: MORPHINE 4 MG/ML 1ML VIAL/SYRINGE (J2270) IV ONE (14:00)
[2019-06-08 14:06] LABS: C REACTIVE PROTEIN QUANTITATIV < 0.30 MG/DL (0.00-0.30)
[2019-06-08 14:23] LABS: ERYTHROCYTE SEDIMENTATION RATE 18 mm/hr (0-20)
--- NOTE | 2019-06-08 14:27 | REP ---
Clinical: Upper abdominal pain. Technique: Upright view of the chest with supine and upright views of the abdomen and pelvis. Findings: Frontal upright view of the chest demonstrates no acute cardiopulmonary process or free air below the diaphragm to suspect pneumoperitoneum. Supine and upright views of the abdomen and pelvis demonstrate nonspecific bowel gas pattern without obstruction or perforation. No organomegaly. No abnormal calcifications. Skeletal structures normal for age. Evidence of prior cholecystectomy. Impression: Nonspecific bowel gas pattern. Electronically Signed by Juan Antonio Mccabe MD 06/08/2019 02:19 P
[2019-06-08] MEDS ORDERED: predniSONE 20 MG TAB PO ONE (15:15)
[2019-06-08] MEDS ORDERED: HYDROmorphone 2 MG TAB PO ONE (15:15)
[2019-06-08] MEDS ORDERED: PRED10TA2 PO (17:09)
[2019-06-08] MEDS ORDERED: HYDR2TAB2 PO (17:09)
[2019-06-08] MEDS ORDERED: REGL10TA6 PO (17:09)
[2019-06-08 17:19] VITALS: BP 139/102
== END 2019-06-08 17:26 | disposition home or self-care (01) ==
LOC: M ED 12:31
DX: K50.90 Crohn's disease, unspecified, without complications (principal); Z91.041 Radiographic dye allergy status; Z88.1 Allergy status to other antibiotic agents; Z88.5 Allergy status to narcotic agent; Z88.8 Allergy status to other drugs, medicaments and biological substances; Z79.899 Other long term (current) drug therapy
CPT/HCPCS: 36415; 74021; 80048; 80076; 83690; 85025; 85652; 86140; 96361; 96374; 96375; 99284; J2270; J2765

== ENCOUNTER 2019-06-12 17:33 | Inpatient (IN) | payer OTHER ==
[~2019-06-12] VITALS: Ht 157.5 cm; Wt 90.2 kg
[~2019-06-12 17:33] MED LIST changes: -HUMI40KI2; +HYDR2TAB2 PO; +MERC50TA2 PO; +PRED10TA2 PO; +REGL10TA6 PO
[2019-06-12] MEDS ORDERED: NS 1,000 ML IV ONE (18:30)
[2019-06-12 18:57] LABS: BASO # 0.1 10^3/uL (0.0-0.2); BASO % 0.3 % (0.0-1.0); EOS # 0.1 10^3/uL (0.0-0.5); EOS % 0.6 % (0.0-3.0); HEMATOCRIT 46.8 % (36.0-47.0); HEMOGLOBIN 15.4 g/dl (12.0-15.5); LYMPH # 2.8 10^3/uL (1.5-5.0); MEAN CORPUSCULAR HEMOGLOBIN 29.2 pg (27.0-33.0); MEAN CORPUSCULAR HGB CONC 32.9 g/dl (32.0-36.5); MEAN CORPUSCULAR VOLUME 88.8 fl (80.0-96.0); MONO # 1.1 10^3/uL (0.0-0.8); MONO % 7.2 % (0.0-5.0); NEUTROPHILS # 11.4 10^3/uL (1.5-8.5); NEUTROPHILS % 73.1 % (36.0-66.0); PLATELET COUNT, AUTOMATED 388 10^3/uL (150-450); RED BLOOD COUNT 5.27 10^6/uL (4.00-5.40); WHITE BLOOD COUNT 15.7 10^3/uL (4.0-10.0)
[2019-06-12] MEDS ORDERED: ISOVUE-370 76% 100ML VIAL (Q9967) As Ordered ONE (19:08)
[2019-06-12 19:34] LABS: ALBUMIN 3.9 GM/DL (3.2-5.2); ALT/SGPT 31 U/L (12-78); BILIRUBIN,DIRECT < 0.1 MG/DL (0.0-0.2); BILIRUBIN,TOTAL 0.4 MG/DL (0.2-1.0); LIPASE 139 U/L (73-393); TOTAL PROTEIN 7.2 GM/DL (6.4-8.2)
[2019-06-12] MEDS ORDERED: ONDANSETRON 4MG/2ML VIAL (J2405) IV ONE (19:45)
[2019-06-12] MEDS ORDERED: HYDROMORPHONE HCL 0.5 MG/ 0.5 ML SYRINGE (J1170 PER 1) IV ONE (19:45)
--- NOTE | 2019-06-12 20:13 | REPVR ---
PROCEDURE INFORMATION: Exam: CT Abdomen And Pelvis With Contrast Exam date and time: 06/12/2019 7:25 PM Age: 33 years old Clinical indication: Abdominal pain; Generalized; Additional info: Abd pain, HX of crohn's TECHNIQUE: Imaging protocol: Computed tomography of the abdomen and pelvis with intravenous contrast. Radiation optimization: All CT scans at this facility use at least one of these dose optimization techniques: automated exposure control; mA and/or kV adjustment per patient size (includes targeted exams where dose is matched to clinical indication); or iterative reconstruction. Contrast material: ISOVUE 370; Contrast volume: 100 ml; Contrast route: IV; COMPARISON: CT ABD/PEL W/IV CONTRAST ONLY 09/26/2016 6:20 AM FINDINGS: Liver: The liver is low attenuation indicating hepatic steatosis. Liver is otherwise unremarkable. Gallbladder and bile ducts: There has been prior cholecystectomy. No biliary duct dilation. Pancreas: Normal. No ductal dilation. Spleen: Normal. No splenomegaly. Adrenals: Normal. No mass. Kidneys and ureters: Normal. No hydronephrosis. Stomach and bowel: There is a stricture with an abrupt caliber change in the sigmoid colon (image 116, series 201). Colon and rectum distal to the stricture are decompressed. Colon proximal to stricture and contains a moderate amount of fecal material but is not significantly dilated. No inflammatory changes are seen in the colon. Postoperative changes in the left upper quadrant small bowel. Small bowel is unremarkable without obstruction or inflammatory changes. Appendix: No evidence of appendicitis. Intraperitoneal space: Unremarkable. No free air. No significant fluid collection. Vasculature: Unremarkable. No abdominal aortic aneurysm. Lymph nodes: Unremarkable. No enlarged lymph nodes. Bladder: Unremarkable as visualized. Reproductive: Prior hysterectomy. Bones/joints: Unremarkable. No acute fracture. Soft tissues: Unremarkable. IMPRESSION: 1. Short segment stricture in the sigmoid colon. No inflammatory changes or mass are seen at the stricture site. Mild constipation. No bowel obstruction. 2. Hepatic steatosis. Electronically signed by: Matt Banerjee On 06/12/2019 20:13:00 PM
[2019-06-12] MEDS ORDERED: NS 1,000 ML IV SCH (21:41)
[2019-06-12] MEDS ORDERED: HYDR2TAB2 PO (21:44)
[2019-06-12] MEDS ORDERED: ONDANSETRON 4MG/2ML VIAL (J2405) IV PRN (21:45)
[2019-06-12] MEDS ORDERED: EPIDURAL/PCA KEYS XX PRN (21:45)
[2019-06-12] MEDS ORDERED: methylPREDNISolone INJ 125 MG/2 ML VIAL (J2930) IV ONE (21:45)
[2019-06-12] MEDS ORDERED: MORPHINE 1MG/ML IN 0.9% NACL 100ML IV BAG IV PRN (21:45)
[2019-06-12] MEDS ORDERED: NALBUPHINE HCL 10 MG/ML AMP (J2300) IV PRN (21:45)
[2019-06-12] MEDS ORDERED: NALOXONE INJ 0.4 MG/1 ML VIAL (J2310) IV PRN (21:45)
[2019-06-12] MEDS ORDERED: diphenhydrAMINE INJ 50MG/ML VIAL (J1200) IV PRN (21:45)
[2019-06-12] MEDS ORDERED: KETOROLAC 30 MG/ML VIAL (J1885) IV ONE (21:45)
[2019-06-12] MEDS ORDERED: OMEP-221 PO (21:47)
[2019-06-12] MEDS ORDERED: OXYC1TAB23 PO (21:48)
[2019-06-12] MEDS ORDERED: METO10TA2 PO (22:26)
[2019-06-13] VITALS (12 sets, daily range): BP systolic 124–141; BP diastolic 75–96
[2019-06-13] MEDS: KCL 10MEQ IN D5/0.45NS 1000ML 1,000 ML IV SCH ×3 (00:43→17:30)
[2019-06-13] MEDS ORDERED: LORazepam 2 MG/ML VIAL (J2060) IV ONE ×2 (03:00→21:00)
[2019-06-13] MEDS ORDERED: KETOROLAC 30 MG/ML VIAL (J1885) IV ONE (03:15)
[2019-06-13] MEDS ORDERED: traZODone 25MG PER 1/2 TABLET PO ONE (03:15)
[2019-06-13 05:47] LABS: HEMATOCRIT 42.2 % (36.0-47.0); MEAN CORPUSCULAR HGB CONC 33.2 g/dl (32.0-36.5); MEAN CORPUSCULAR VOLUME 90.6 fl (80.0-96.0); PLATELET COUNT, AUTOMATED 327 10^3/uL (150-450); RED BLOOD COUNT 4.66 10^6/uL (4.00-5.40); WHITE BLOOD COUNT 10.8 10^3/uL (4.0-10.0)
[2019-06-13 06:13] LABS: BLOOD UREA NITROGEN 14 MG/DL (7-18); CALCIUM LEVEL 8.1 MG/DL (8.5-10.1); CARBON DIOXIDE LEVEL 23 MEQ/L (21-32); CHLORIDE LEVEL 108 MEQ/L (98-107); CREATININE FOR GFR 0.89 MG/DL (0.55-1.30); GLOMERULAR FILTRATION RATE > 60.0 (>60); GLUCOSE, FASTING 145 MG/DL (70-100); POTASSIUM SERUM 4.2 MEQ/L (3.5-5.1); SODIUM LEVEL 137 MEQ/L (136-145)
[2019-06-13] MEDS: busPIRone 10 MG TAB PO SCH ×2 (08:04→21:32)
[2019-06-13] MEDS: FLUoxetine 20 MG CAP PO SCH (08:04)
[2019-06-13] MEDS: methylPREDNISolone INJ 125 MG/2 ML VIAL (J2930) IV SCH (08:04)
[2019-06-13] MEDS: PANTOPRAZOLE 40MG INJ (PROTONIX) (C9113) IV SCH (08:06)
[2019-06-13 08:10] LABS: PREALBUMIN 38.8 MG/DL (20.0-40.0)
[2019-06-13] MEDS ORDERED: MERCAPTOPURINE 50 MG PO SCH (09:00)
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
[2019-06-13] MEDS: ACETAMINOPHEN TAB 650MG DOSE (2X325MG) PO PRN (17:36)
--- NOTE | 2019-06-13 17:51 | CR ---
DATE OF CONSULTATION: 06/13/2019 STATUS OF PATIENT: Inpatient. REQUESTING PHYSICIAN: Hospitalist service. REASON FOR CONSULTATION: Crohn's disease, abdominal pain. HISTORY OF PRESENT ILLNESS: Yajaira is a 33-year-old female with a longstanding history of small bowel Crohn's disease diagnosed at age 14, She was remotely treated with Remicade infusions but , had an anaphylactic reaction after her 3rd or 4th dose. She subsequently was tried on Humira briefly during her in 2011, but ultimately did require a small- bowel resection post in 2012. Post small bowel resection, she was kept on Pentasa only and had relatively good symptomatic results to this until about 1 year ago when she was restarted on Humira and 6-MP for recurrent crohns disease symptoms. Due to persistent abdominal pain, Humira was increased from Q other week, to Q weekly injection in January 2019 and she was started on 6-MP. She has recently had some increase in her discomfort, and it was felt that possibly Crohn's disease was flaring again. She was treated with brief steroid courses, which provided her some short-term relief. She presently is admitted to the hospital with increased abdominal pain, constipation, and a CT scan showing a sigmoid stricture without inflammatory changes seen on CT. No other inflammatory changes are seen on this CT scan. There is some formed stool above the stricture. There is no obstruction seen. She states her stools feel constipated and pencil thin at times. Here is no blood in her stool. She has chronic abdominal pain and bloating which has worsened. She claims nausea and occasional vomiting, but she denies weight loss, diarrhea, blood in stool, skin rashes or arthralgias. PAST MEDICAL HISTORY: 1. Crohn's disease of the small bowel. ([facility] Dr [facility]) 2. Small-bowel resection ("16 inches" per patient) in 2012. (Dr Arriaga) SOCIAL HISTORY: Negative for tobacco. Negative for alcohol. Family Hx: negative colon cancer inflammatory bowel disease. ALLERGIES: REMICADE, causing anaphylaxis (she does tolerate Humira). HOME MEDICATIONS: - mercaptopurine 50 mg daily - Humira 40 mg Q weekly - hydromorphone - Reglan - Zofran - oxycodone - Percocet PHYSICAL EXAMINATION: Temperature 96.9, pulse 81, respiratory rate 14, blood pressure 138/82, pulse ox 94% room air. GENERAL: She is awake, alert, and oriented times three in no acute distress. She is nontoxic in appearance. She is somewhat tremulous. HEAD, EYES, EARS, NOSE AND THROAT: Grossly without abnormality. There is no oral thrush. Neck is supple. No lymphadenopathy or thyromegaly. CHEST: Clear bilaterally. HEART: Regular rate and rhythm, S1, S2. ABDOMEN: Soft. Positive bowel sounds. Moderately tender throughout. EXTREMITIES: Negative for edema. LABORATORY DATA: Sodium 137, potassium 4.2, BUN 14, creatinine 0.89. WBC 10.8, hemoglobin 14.0, platelet count is 327. IMAGING: Dated 06/12/2019: CT abdomen and pelvis with IV contrast. IMPRESSION: 1. Short-segment stricture in the sigmoid colon. No inflammatory changes or mass are seen at the stricture site (or any other site) by CT A/P. Mild constipation. No bowel obstruction. 2. Crohn's disease of small bowel. ( Small Bowel resection 2013) 3. Chronic abdominal pain. RECOMMENDATIONS: 1. Assess stricture for cause. I suspect crohns disease, however she is not aware of ever having colonic disease in the past. Rec Flex sig to r/o other than crohns disease. 2. We will attempt a sigmoidoscopy to assess the stricture for inflammatory component and, if so, then a few more days of prednisone or Solu-Medrol may well improve her symptoms. If the stricture, however, is bland, surgical consultation should be considered, as this is unlikely to respond to steroids or biologic medications. 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 4. Outpatient follow up as scheduled with her established GI team in [place]. GRETCHEN
--- NOTE | 2019-06-13 19:45 | IPNPDOC ---
Text Note Date of Service The patient was seen on 06/13/19. NOTE Subjective: -continues to be in on the dilaudid DUPLICATION SPECIALIST and appears comfortable -Asking if she could try at least a clear liquid diet Objective: VITALS: Hemodynamically stable and afebrile, see below GENERAL: In no acute distress. HEENT: NCAT, PERRLA, EOMI, MMM CHEST: CTAB HEART: Regular rate and rhythm, S1, S2, no murmurs or rubs ABDOMEN: Normoactive bowel sounds, moderate TTP throughout. EXTREMITIES: WWP, no LE edema LABORATORY DATA: Reviewed. grossly unremarkable CBC and BMP IMAGING: CT abdomen and pelvis with IV contrast. 1. Short-segment stricture in the sigmoid colon. No inflammatory changes or mass are seen at the stricture site. Mild constipation. No bowel obstruction. 2. Crohn's disease of small bowel, previously resected 3. Sigmoid stricture presumably related to Crohn's disease; however, not definitely diagnosed as such. 4. Chronic abdominal pain. 5. Chronic narcotic medications on board Assessment and Plan: 1. Crohn's disease with a noted sigmoid stricture. -Dr. Casanova is on board, will attempt a sigmoidoscopy to assess the stricture for inflammatory component and, if so, then a few more days of prednisone or Solu-Medrol might improve her symptoms. If the stricture, however, is bland, recommending surgical consultation, as this is unlikely to respond to no biologic medications. - continue IV fluids -Allowed her clears at dinner but to be NPO in the event that GI is planning for sigmoidoscopy 2. Anxiety/depression. Resume home medications. 3. Insomnia. Continue trazodone. 4. Deep vein thrombosis (DVT) prophylaxis with compression stockings. CODE STATUS: FULL CODE. VS,Fishbone, I+O VS, Fishbone, I+O Laboratory Tests 06/13/19 05:29 Vital Signs Date Time Temp Pulse Resp B/P (MAP) Pulse Ox O2 Delivery O2 Flow Rate FiO2 06/13/19 18:00 97.1 79 14 124/96 (105) 96 Room Air I&O- Last 24 Hours up to 6 AM 06/13/19 06:00 Intake Total 1000 ml Output Total 200 ml Balance 800 ml SUZETTE HIGUERA MD Jun 13, 2019 19:45
[2019-06-14] VITALS (11 sets, daily range): BP systolic 117–165; BP diastolic 72–94
[2019-06-14] MEDS: KCL 10MEQ IN D5/0.45NS 1000ML 1,000 ML IV SCH ×2 (04:13→14:17)
--- NOTE | 2019-06-14 04:24 | IPNPDOC ---
Date Seen The patient was seen on 06/14/19. Progress Note Per [place], Dr. Casanova, after seeing the patient and reviewing the case: -no need for TPN as the patient will most likely respond to treatment. Plan: dc PICC order and groundman consult for TPN. VS, I&O, 24H, Fishbone Vital Signs/I&O Vital Signs Date Time Temp Pulse Resp B/P (MAP) Pulse Ox O2 Delivery O2 Flow Rate FiO2 06/14/19 02:00 97.2 65 18 117/82 (94) 95 Room Air I&O- Last 24 Hours up to 6 AM 06/14/19 06:00 Intake Total 360 ml Balance 360 ml Laboratory Data 24H LABS Laboratory Tests 2 06/13/19 05:29: Nucleated Red Blood Cells % (auto) 0.0, Anion Gap 6L, Glomerular Filtration Rate > 60.0, Calcium Level 8.1L CBC/BMP Laboratory Tests 06/13/19 05:29 ADOLPH OLIVER MD Jun 14, 2019 04:24
[2019-06-14 07:41] LABS: BLOOD UREA NITROGEN 9 MG/DL (7-18); C REACTIVE PROTEIN QUANTITATIV 0.44 MG/DL (0.00-0.30); CALCIUM LEVEL 8.2 MG/DL (8.5-10.1); CARBON DIOXIDE LEVEL 25 MEQ/L (21-32); CHLORIDE LEVEL 110 MEQ/L (98-107); CREATININE FOR GFR 0.63 MG/DL (0.55-1.30); GLOMERULAR FILTRATION RATE > 60.0 (>60); GLUCOSE, FASTING 104 MG/DL (70-100); SODIUM LEVEL 138 MEQ/L (136-145)
[2019-06-14] MEDS: PANTOPRAZOLE 40MG INJ (PROTONIX) (C9113) IV SCH (09:37)
[2019-06-14] MEDS: FLUoxetine 20 MG CAP PO SCH (09:37)
[2019-06-14] MEDS: busPIRone 10 MG TAB PO SCH ×2 (09:37→20:20)
[2019-06-14] MEDS: methylPREDNISolone INJ 125 MG/2 ML VIAL (J2930) IV SCH (09:37)
--- NOTE | 2019-06-14 12:14 | IPNPDOC ---
Text Note Date of Service The patient was seen on 06/14/19. NOTE Subjective: -continues to be in on the dilaudid SPORTS EQUIPMENT SUPERVISOR going to flex sig today Objective: VITALS: Hemodynamically stable and afebrile, see below GENERAL: In no acute distress. HEENT: NCAT, PERRLA, EOMI, MMM CHEST: CTAB HEART: Regular rate and rhythm, S1, S2, no murmurs or rubs ABDOMEN: Normoactive bowel sounds, moderate TTP throughout. EXTREMITIES: WWP, no LE edema LABORATORY DATA: Reviewed. grossly unremarkable CBC and BMP IMAGING: CT abdomen and pelvis with IV contrast. 1. Short-segment stricture in the sigmoid colon. No inflammatory changes or mass are seen at the stricture site. Mild constipation. No bowel obstruction. 2. Crohn's disease of small bowel, previously resected 3. Sigmoid stricture presumably related to Crohn's disease; however, not defin itely diagnosed as such. 4. Chronic abdominal pain. 5. Chronic narcotic medications on board Assessment and Plan: 1. Crohn's disease with a noted sigmoid stricture. -Dr. Casanova is on board, kt attempt a sigmoidoscopy to assess the stricture for inflammatory component and, if so, then a few more days of prednisone or Solu- Medrol might improve her symptoms. If the stricture, however, is bland, recommending surgical consultation, as this is unlikely to respond to no biologic medications. -continue IV fluids -Allowed her clears at dinner now NPO for sigmoidoscopy -Pain control with dilaudid SPORTS EQUIPMENT SUPERVISOR, to transition to scheduled with breakthrough from SPORTS EQUIPMENT SUPERVISOR pump 2. Anxiety/depression. Resume home medications. 3. Insomnia. Continue trazodone. 4. Deep vein thrombosis (DVT) prophylaxis with compression stockings. CODE STATUS: FULL CODE. VS,Fishbone, I+O VS, Fishbone, I+O Laboratory Tests 06/14/19 06:54 Vital Signs Date Time Temp Pulse Resp B/P (MAP) Pulse Ox O2 Delivery O2 Flow Rate FiO2 06/14/19 10:00 97.2 63 20 136/72 (93) 98 Room Air I&O- Last 24 Hours up to 6 AM 06/14/19 06:00 Intake Total 360 ml Balance 360 ml SUZETTE HIGUERA MD Jun 14, 2019 12:14
[2019-06-14] MEDS ORDERED: LIDOCAINE 2% INJ 100 MG/5 ML SDV (FOR ANES.) As Ordered ONE (12:19)
[2019-06-14] MEDS ORDERED: propofoL 200 MG/20 ML VIAL As Ordered ONE (12:19)
--- NOTE | 2019-06-14 12:33 | ROOR ---
Patient Name: Yajaira Darling Procedure Date: 06/14/2019 11:41 AM Date of : 1985 Age: 33 Room: Main OR Gender: Female Note Status: Finalized Procedure: Colonoscopy Indications: Generalized abdominal pain, Crohn's disease, Abnormal CT of the GI tract showing possible stricture in sigmoid, Constipation Providers: Rajan CASANOVA MD Referring MD: 2. Inpatient 2. Inpatient Requesting Provider: Medicines: Monitored Anesthesia Care Complications: No immediate complications. Procedure: Pre-Anesthesia Assessment: - The heart rate, respiratory rate, oxygen saturations, blood pressure, adequacy of pulmonary ventilation, and response to care were monitored throughout the procedure. The Colonoscope was introduced through the anus and advanced to 10 cm into the ileum. The colonoscopy was performed without difficulty. The patient tolerated the procedure well. The quality of the bowel preparation was 10 percent obscured. Findings: The perianal and digital rectal examinations were normal. The terminal ileum appeared normal. The colon (entire examined portion) appeared normal. Small Internal Hemorrhoids. There is no endoscopic evidence of inflammation, stenosis, stricture or mucosal abnormalities in the entire colon. Impression: - The entire colon is normal. There is no endoscopic evidence of inflammation, stenosis or mucosal abnormalities in the entire colon. - The examined portion of the ileum (>10 cm) was normal. - The perianal exam is normal. - Small Internal Hemorrhoids. - No specimens collected. Recommendation: - Full liquid diet. - Advance diet as tolerated. - Continue present medications. Rajan Casanova MD Rajan CASANOVA MD 06/14/2019 12:33:09 PM Electronically signed by Rajan CASANOVA MD Number of Addenda: 0 Note Initiated On: 06/14/2019 11:41 AM Estimated Blood Loss: Estimated blood loss: none.
[2019-06-14] MEDS ORDERED: ALPRAZolam 0.25 MG TAB PO ONE ×2 (15:15→22:00)
[2019-06-14] MEDS: ACETAMINOPHEN TAB 650MG DOSE (2X325MG) PO PRN (20:20)
[2019-06-14] MEDS ORDERED: KETOROLAC 30 MG/ML VIAL (J1885) IV ONE (22:00)
[2019-06-15] MEDS: KCL 10MEQ IN D5/0.45NS 1000ML 1,000 ML IV SCH ×2 (00:22→09:45)
[2019-06-15 02:00] VITALS: BP 137/81
[2019-06-15 06:00] VITALS: BP 131/82
[2019-06-15 06:13] LABS: HEMATOCRIT 37.9 % (36.0-47.0); HEMOGLOBIN 12.4 g/dl (12.0-15.5); MEAN CORPUSCULAR HEMOGLOBIN 29.7 pg (27.0-33.0); MEAN CORPUSCULAR HGB CONC 32.7 g/dl (32.0-36.5); MEAN CORPUSCULAR VOLUME 90.9 fl (80.0-96.0); PLATELET COUNT, AUTOMATED 265 10^3/uL (150-450); RED BLOOD COUNT 4.17 10^6/uL (4.00-5.40); WHITE BLOOD COUNT 9.8 10^3/uL (4.0-10.0)
[2019-06-15 06:35] LABS: BLOOD UREA NITROGEN 5 MG/DL (7-18); CALCIUM LEVEL 8.5 MG/DL (8.5-10.1); CARBON DIOXIDE LEVEL 26 MEQ/L (21-32); CHLORIDE LEVEL 109 MEQ/L (98-107); CREATININE FOR GFR 0.69 MG/DL (0.55-1.30); GLOMERULAR FILTRATION RATE > 60.0 (>60); GLUCOSE, FASTING 90 MG/DL (70-100); POTASSIUM SERUM 3.5 MEQ/L (3.5-5.1); SODIUM LEVEL 138 MEQ/L (136-145)
[2019-06-15] MEDS: methylPREDNISolone INJ 125 MG/2 ML VIAL (J2930) IV SCH (07:49)
[2019-06-15] MEDS: FLUoxetine 20 MG CAP PO SCH (07:51)
[2019-06-15] MEDS: PANTOPRAZOLE 40MG INJ (PROTONIX) (C9113) IV SCH (07:51)
[2019-06-15] MEDS: busPIRone 10 MG TAB PO SCH ×2 (07:52→20:11)
[2019-06-15 08:20] VITALS: BP 122/78
[2019-06-15 09:57] LABS: VITAMIN B12 LEVEL 329 PG/ML (247-911)
[2019-06-15 14:25] VITALS: BP 142/84
[2019-06-15] MEDS ORDERED: LORazepam 1 MG TAB PO ONE (19:00)
[2019-06-15 19:53] VITALS: BP 133/87
[2019-06-15] MEDS: ACETAMINOPHEN TAB 650MG DOSE (2X325MG) PO PRN (20:11)
[2019-06-16 04:00] VITALS: BP 148/90
[2019-06-16 06:58] LABS: HEMATOCRIT 40.6 % (36.0-47.0); HEMOGLOBIN 13.3 g/dl (12.0-15.5); MEAN CORPUSCULAR HEMOGLOBIN 29.5 pg (27.0-33.0); MEAN CORPUSCULAR HGB CONC 32.8 g/dl (32.0-36.5); PLATELET COUNT, AUTOMATED 292 10^3/uL (150-450); RED BLOOD COUNT 4.51 10^6/uL (4.00-5.40); WHITE BLOOD COUNT 10.8 10^3/uL (4.0-10.0)
[2019-06-16 07:19] LABS: BLOOD UREA NITROGEN 8 MG/DL (7-18); CALCIUM LEVEL 9.1 MG/DL (8.5-10.1); CARBON DIOXIDE LEVEL 27 MEQ/L (21-32); CHLORIDE LEVEL 107 MEQ/L (98-107); CREATININE FOR GFR 0.68 MG/DL (0.55-1.30); GLOMERULAR FILTRATION RATE > 60.0 (>60); GLUCOSE, FASTING 87 MG/DL (70-100); POTASSIUM SERUM 3.4 MEQ/L (3.5-5.1); SODIUM LEVEL 139 MEQ/L (136-145)
[2019-06-16] MEDS: busPIRone 10 MG TAB PO SCH (08:22)
[2019-06-16] MEDS: FLUoxetine 20 MG CAP PO SCH (08:22)
[2019-06-16] MEDS: methylPREDNISolone INJ 125 MG/2 ML VIAL (J2930) IV SCH (08:23)
[2019-06-16] MEDS: ACETAMINOPHEN TAB 650MG DOSE (2X325MG) PO PRN (08:23)
[2019-06-16] MEDS: PANTOPRAZOLE 40MG INJ (PROTONIX) (C9113) IV SCH (08:23)
--- NOTE | 2019-06-16 08:31 | IPNPDOC ---
Text Note Date of Service The patient was seen on 06/15/19. NOTE Subjective: continues to be in on the dilaudid ROAD CROSSING GUARD and is status post flexible sigmoidoscopy yesterday Physical examination VITALS: Hemodynamically stable and afebrile, see below GENERAL: In no acute distress. HEENT: NCAT, PERRLA, EOMI, MMM CHEST: CTAB HEART: Regular rate and rhythm, S1, S2, no murmurs or rubs ABDOMEN: Normoactive bowel sounds, moderate TTP throughout. EXTREMITIES: WWP, no LE edema LABORATORY DATA: Reviewed. grossly unremarkable CBC and BMP IMAGING: CT abdomen and pelvis with IV contrast. 1. Short-segment stricture in the sigmoid colon. No inflammatory changes or mass are seen at the stricture site. Mild constipation. No bowel obstruction. 2. Crohn's disease of small bowel, previously resected 3. Sigmoid stricture presumably related to Crohn's disease; however, not definitely diagnosed as such. 4. Chronic abdominal pain. 5. Chronic narcotic medications on board Assessment and Plan: 1. Crohn's disease with a noted sigmoid stricture. Dr. Casanova is on board, patient is status post sigmoidoscopy on 06/14/19 to assess the stricture for inflammatory component which did not reveal any stricture or any other pathology. She has been started on the full liquid diet and she is exhibiting appetite and hunger. Pain control with dilaudid ROAD CROSSING GUARD, to transition to scheduled with breakthrough from ROAD CROSSING GUARD pump 2. Anxiety/depression. Resume home medications. 3. Insomnia. Continue trazodone. 4. Deep vein thrombosis (DVT) prophylaxis with compression stockings. CODE STATUS: FULL CODE. VS,Fishbone, I+O VS, Fishbone, I+O Laboratory Tests 06/15/19 05:30 Vital Signs Date Time Temp Pulse Resp B/P (MAP) Pulse Ox O2 Delivery O2 Flow Rate FiO2 06/15/19 14:25 97.4 60 18 142/84 (103) 96 Room Air I&O- Last 24 Hours up to 6 AM 06/15/19 06:00 Intake Total 3610 ml Output Total 0 ml Balance 3610 ml DONNA ESPINO MD Jun 15, 2019 16:57
[2019-06-16] MEDS ORDERED: PRED10TA2 PO (11:13)
--- NOTE | 2019-06-16 11:24 | DS.PDOC ---
Discharge Summary General Date of Admission Jun 12, 2019 at 21:37 Date of Discharge 06/16/19 Discharge Summary Chief complaints Abdominal pain Final diagnosis Crohn's flareup Abdominal pain Hospital course Yajaira is a 33-year-old female with a longstanding history of small bowel Crohn's disease diagnosed at age 14, She was remotely treated with Remicade infusions but , had an anaphylactic reaction after her 3rd or 4th dose. She subsequently was tried on Humira briefly during her in 2011, but ultimately did require a small-bowel resection post in 2012. Post small bowel resection, she was kept on Pentasa only and had relatively good symptomatic results to this until about 1 year ago when she was restarted on Humira and 6-MP for recurrent crohns disease symptoms. Due to persistent abdominal pain, Humira was increased from Q other week, to Q weekly injection in January 2019 and she was started on 6-MP. She has recently had some increase in her discomfort, and it was felt that possibly Crohn's disease was flaring again. She was treated with brief steroid courses, which provided her some short-term relief. She was admitted to the hospital with increased abdominal pain, constipation, and a CT scan showing a sigmoid stricture without inflammatory changes seen on CT. No other inflammatory changes are seen on this CT scan. There is no obstruction seen. She states her stools feel constipated and pencil thin at times. Here is no blood in her stool. Dr. Casanova saw the patient and decided to sigmoidoscopy . patient is status post sigmoidoscopy on 06/14/19 to assess the stricture for inflammatory component which did not reveal any stricture or any other pathology. She has been started on the full liquid diet, which was escalated to full liquid and then soft diet which she tolerated. She had a bowel movement and is passing gas. She was started on high-dose steroids with Solu-Medrol and will be tapered down with 60 mg for 5 days, 50 Mt 5 days, 40 mg for 5 days, 30 mg for 2 days, 20 mg per 5 days, 10, 5 days and then by that time she'll follow up with the GI specialist and they can recommend further steroids. She is advised to follow with GI as an outpatient. She is medically optimized for discharge today. Physical examination VITALS: Hemodynamically stable and afebrile, see below GENERAL: In no acute distress. HEENT: NCAT, PERRLA, EOMI, MMM CHEST: CTAB HEART: Regular rate and rhythm, S1, S2, no murmurs or rubs ABDOMEN: Normoactive bowel sounds, no tenderness, no guarding or rigidity EXTREMITIES: WWP, no LE edema IMAGING: CT abdomen and pelvis with IV contrast. 1. Short-segment stricture in the sigmoid colon. No inflammatory changes or mass are seen at the stricture site. Mild constipation. No bowel obstruction. 2. Crohn's disease of small bowel, previously resected 3. Sigmoid stricture presumably related to Crohn's disease; however, not definitely diagnosed as such. 4. Chronic abdominal pain. 5. Chronic narcotic medications on board Medications. As per discharge reconciliation medication list Activity as tolerated Diet. 2 g sodium diet Follow-up appointments. PCP in 1 week, nephrology in 1 week. Condition on discharge. Patient is medically optimized for discharge Discharge disposition: Home Total time spent on this discharge including coordination of care, review of chart documentation and actual contact is around 35 minutes Vital Signs/I&Os Vital Signs Date Time Temp Pulse Resp B/P (MAP) Pulse Ox O2 Delivery O2 Flow Rate FiO2 06/16/19 04:00 97.7 76 16 148/90 (109) 98 Room Air I&O- Last 24 Hours up to 6 AM 06/16/19 06:00 Intake Total 1070 ml Output Total 1550 ml Balance -480 ml Laboratory Data Labs 24H Laboratory Tests 2 06/16/19 06:44: Nucleated Red Blood Cells % (auto) 0.0, Anion Gap 5L, Glomerular Filtration Rate > 60.0, Calcium Level 9.1 CBC/BMP Laboratory Tests 06/16/19 06:44 Discharge Medications Scheduled Adalimumab (Humira Pen) 40 Mg/0.8 Ml Kit, 0.8 ML SC 1XWK, (Reported) Buspirone HCl (Buspirone HCl) 10 Mg Tab, 20 MG PO BID, (Reported) Fluoxetine HCl (Prozac) 20 Mg Cap, 20 MG PO DAILY, (Reported) Mercaptopurine (Mercaptopurine) 50 Mg Tablet, 50 MG PO QAM, (Reported) Omeprazole (Omeprazole) 40 Mg Capsule.dr, 40 MG PO DAILY, (Reported) Prednisone (Prednisone) 10 Mg Tablet, 10 MG PO ASDIRECTED 6 tabs po day 1-3; 5 tabs po day 4-5; 4 tabs po day 6-7; 3 tabs po day 8-9, 2 tabs poday 10-11; 1 tab po day 12-14 Scheduled PRN Acetaminophen (Acetaminophen) 325 Mg Tab, 650 MG PO Q4HP PRN for PAIN / FEVER, (Reported) Hydromorphone HCl (Hydromorphone HCl) 2 Mg Tablet, 2 MG PO QID PRN for PAIN, (Reported) Metoclopramide HCl (Metoclopramide HCl) 10 Mg Tablet, 10 MG PO Q6H PRN for NAUSEA, (Reported) Ondansetron HCl (Zofran) 4 Mg Tab, 4 MG PO Q4HP PRN for NAUSEA, (Reported) Oxycodone HCl/Acetaminophen (Oxycodone-Acetaminophen 5-325) 1 Each Tablet, 1 TAB PO Q8H PRN for pain, (Reported) Allergies Coded Allergies: infliximab (Verified Allergy, Severe, anaphylaxis, 06/08/19) Contrast Media (Verified Allergy, Intermediate, "mri injection dye" hives, 06/12/19) codeine (Verified Adverse Reaction, Mild, vomiting, 06/12/19) dicyclomine (Verified Adverse Reaction, Mild, diarrhea, 06/12/19) DONNA ESPINO MD Jun 16, 2019 11:24
== END 2019-06-16 12:20 | disposition home or self-care (01) | DRG 245 ==
LOC: M ED 17:33 → M ED INP 21:37 → ENRESERVDT 22:52 → ENRESERVTM 22:52 → M MSPAV 06-13 00:16 → M MS4PR 06-15 08:10
PROVIDERS: ADMIT General Practice; ATTEND Internal Medicine
PROC: 0DJD8ZZ Inspection of Lower Intestinal Tract, Via Natural or Artificial Opening Endoscopic (ICD-10-PCS; principal; 2019-06-14 11:30)
DX: K50.012 Crohn's disease of small intestine with intestinal obstruction (principal); F32.9 Major depressive disorder, single episode, unspecified; G47.00 Insomnia, unspecified; Z79.899 Other long term (current) drug therapy; Z88.5 Allergy status to narcotic agent; Z91.041 Radiographic dye allergy status; Z88.8 Allergy status to other drugs, medicaments and biological substances; Z87.891 Personal history of nicotine dependence; F41.9 Anxiety disorder, unspecified; K64.8 Other hemorrhoids

== ENCOUNTER 2019-08-29 12:33 | Emergency (ER) | payer OTHER ==
[~2019-08-29] VITALS: Ht 157.5 cm; Wt 92.6 kg
[~2019-08-29 12:33] MED LIST changes: +METO10TA2 PO; +OMEP-221 PO; +OXYC1TAB23 PO
[2019-08-29] MEDS ORDERED: MORPHINE 4 MG/ML 1ML VIAL/SYRINGE (J2270) IV ONE (13:00)
[2019-08-29] MEDS ORDERED: NS 1,000 ML IV ONE (13:00)
[2019-08-29] MEDS ORDERED: ONDANSETRON 4MG/2ML VIAL IV ONE (13:00)
[2019-08-29 13:22] LABS: BASO % 0.3 % (0.0-1.0); EOS # 0.1 10^3/uL (0.0-0.5); EOS % 0.9 % (0.0-3.0); HEMATOCRIT 42.5 % (36.0-47.0); HEMOGLOBIN 13.8 g/dl (12.0-15.5); LYMPH # 1.2 10^3/uL (1.5-5.0); LYMPH % 16.5 % (24.0-44.0); MEAN CORPUSCULAR HEMOGLOBIN 30.1 pg (27.0-33.0); MEAN CORPUSCULAR HGB CONC 32.5 g/dl (32.0-36.5); MEAN CORPUSCULAR VOLUME 92.6 fl (80.0-96.0); MONO # 0.4 10^3/uL (0.0-0.8); MONO % 5.3 % (0.0-5.0); NEUTROPHILS # 5.7 10^3/uL (1.5-8.5); NEUTROPHILS % 76.6 % (36.0-66.0); PLATELET COUNT, AUTOMATED 322 10^3/uL (150-450); RED BLOOD COUNT 4.59 10^6/uL (4.00-5.40); WHITE BLOOD COUNT 7.4 10^3/uL (4.0-10.0)
[2019-08-29 13:38] LABS: PARTIAL THROMBOPLASTIN TIME 27.9 SECONDS (25.0-38.4); PROTHROMBIN TIME 12.9 SECONDS (11.8-14.0)
[2019-08-29 14:02] LABS: ALBUMIN 3.7 GM/DL (3.2-5.2); ALT/SGPT 36 U/L (12-78); AMYLASE 97 U/L (25-115); BILIRUBIN,DIRECT < 0.1 MG/DL (0.0-0.2); BILIRUBIN,TOTAL 0.4 MG/DL (0.2-1.0); LIPASE 173 U/L (73-393); TOTAL PROTEIN 7.3 GM/DL (6.4-8.2)
--- NOTE | 2019-08-29 14:21 | REP ---
ABDOMINAL SERIES: REASON: Abdominal pain. COMPARISON: 06/08/2019 FINDINGS: Supine and upright views of the abdomen show the intestinal gas pattern to be nonspecific. Gas and stool is seen throughout the colon within the rectosigmoid region. The organ silhouettes insofar as delineated appear unremarkable. No abdominal calcific densities are seen within the abdomen or pelvis. The accompanying single frontal view of the chest shows no free subdiaphragmatic air, cardiomegaly, infiltrates or effusions. IMPRESSION: Nonspecific intestinal gas pattern. No significant change from the prior exam. Electronically Signed by Jamie Witt DO 08/29/2019 02:41 P
[2019-08-29] MEDS ORDERED: KETOROLAC 30 MG/ML 1ML VIAL IV ONE (14:30)
[2019-08-29] MEDS ORDERED: ONDA4TAB6 PO (14:57)
[2019-08-29] MEDS ORDERED: DICY20TA11 PO (14:57)
[2019-08-29 15:01] VITALS: BP 137/89
== END 2019-08-29 15:11 | disposition home or self-care (01) ==
LOC: M ED 12:33
DX: K50.919 Crohn's disease, unspecified, with unspecified complications (principal); R10.9 Unspecified abdominal pain; Z88.5 Allergy status to narcotic agent; Z91.041 Radiographic dye allergy status; Z79.899 Other long term (current) drug therapy
CPT/HCPCS: 74021; 80047; 80076; 82150; 83605; 83690; 85025; 85610; 85730; 96361; 96374; 96375; 99284; J1885; J2270; J2405

== ENCOUNTER 2019-09-07 00:43 | Emergency (ER) | payer OTHER ==
[~2019-09-07] VITALS: Ht 157.5 cm; Wt 94.5 kg
[~2019-09-07 00:43] MED LIST changes: +DICY20TA11 PO; +ONDA4TAB6 PO
[2019-09-07 01:15] LABS: HEMATOCRIT 38.8 % (36.0-47.0); HEMOGLOBIN 12.6 g/dl (12.0-15.5); MEAN CORPUSCULAR HEMOGLOBIN 30.1 pg (27.0-33.0); MEAN CORPUSCULAR HGB CONC 32.5 g/dl (32.0-36.5); MEAN CORPUSCULAR VOLUME 92.6 fl (80.0-96.0); PLATELET COUNT, AUTOMATED 308 10^3/uL (150-450); RED BLOOD COUNT 4.19 10^6/uL (4.00-5.40); WHITE BLOOD COUNT 6.1 10^3/uL (4.0-10.0)
[2019-09-07 01:24] LABS: LYMPHOCYTES 30 % (16-44); MONOCYTES 6 % (0-5); NEUTROPHILS 64 % (28-66); POLYCHROMASIA 1+
[2019-09-07 01:25] LABS: ANISOCYTOSIS 1+; PLATELET ESTIMATE NORMAL (NORMAL)
[2019-09-07] MEDS ORDERED: NS 1,000 ML IV ONE (01:30)
[2019-09-07] MEDS ORDERED: KETOROLAC 30 MG/ML 1ML VIAL IV ONE (01:30)
[2019-09-07 01:57] LABS: HCG, SERUM QUALITATIVE NEGATIVE (NEGATIVE)
[2019-09-07 01:59] LABS: INR 0.98; PROTHROMBIN TIME 12.7 SECONDS (11.8-14.0)
[2019-09-07 02:00] LABS: PARTIAL THROMBOPLASTIN TIME 28.6 SECONDS (25.0-38.4)
[2019-09-07 02:02] LABS: ALBUMIN 3.6 GM/DL (3.2-5.2); ALT/SGPT 28 U/L (12-78); AMYLASE 63 U/L (25-115); BILIRUBIN,DIRECT < 0.1 MG/DL (0.0-0.2); BILIRUBIN,TOTAL 0.1 MG/DL (0.2-1.0); BLOOD UREA NITROGEN 11 MG/DL (7-18); CALCIUM LEVEL 8.3 MG/DL (8.5-10.1); CARBON DIOXIDE LEVEL 24 MEQ/L (21-32); CHLORIDE LEVEL 107 MEQ/L (98-107); CK-MB VALUE MASS < 1.0 NG/ML (<3.6); CPK CREATINE PHOSPHOKINASE 39 U/L (26-192); CREATININE FOR GFR 0.68 MG/DL (0.55-1.30); GLOMERULAR FILTRATION RATE > 60.0 (>60); GLUCOSE, FASTING 84 MG/DL (70-100); LIPASE 95 U/L (73-393); MB/CK RELATIVE INDEX 2.56 (< OR =4); POTASSIUM SERUM 3.6 MEQ/L (3.5-5.1); SODIUM LEVEL 139 MEQ/L (136-145); TOTAL PROTEIN 7.1 GM/DL (6.4-8.2); TROPONIN I < 0.02 NG/ML (< 0.10)
[2019-09-07] MEDS ORDERED: ISOVUE-370 76% 100ML VIAL As Ordered ONE (02:16)
[2019-09-07] MEDS ORDERED: ONDANSETRON 4MG/2ML VIAL IV ONE (02:30)
--- NOTE | 2019-09-07 02:35 | REPVR ---
PROCEDURE INFORMATION: Exam: CT Abdomen And Pelvis With Contrast Exam date and time: 09/07/2019 2:31 AM Age: 33 years old Clinical indication: Abdominal pain; Additional info: Llq and ruq pain, h/o crohns TECHNIQUE: Imaging protocol: Computed tomography of the abdomen and pelvis with intravenous contrast. Radiation optimization: All CT scans at this facility use at least one of these dose optimization techniques: automated exposure control; mA and/or kV adjustment per patient size (includes targeted exams where dose is matched to clinical indication); or iterative reconstruction. Contrast material: ISO 370; Contrast volume: 100 ml; Contrast route: IV; COMPARISON: CT ABD/PEL W/IV CONTRAST ONLY 06/12/2019 7:18 PM FINDINGS: Lungs: No suspicious mass or airspace process in the visualized lung bases. Calcified granuloma at the posterior right lung base is present. Liver: Liver appears normal with no focal abnormality. Gallbladder and bile ducts: Gallbladder is surgically absent. Pancreas: Pancreas appears normal. No focal mass or peripancreatic inflammation. Spleen: Spleen appears homogeneous without focal mass. Adrenals: Adrenal glands are normal in appearance. Kidneys and ureters: Kidneys appear normal, with no stone, solid mass or hydronephrosis. Stomach and bowel: No evidence of small bowel obstruction. Postsurgical changes with bowel anastomoses in the mid abdomen. No inflammatory change. Appendix: No evidence of acute appendicitis. Intraperitoneal space: No pneumoperitoneum. Vasculature: No aortic aneurysm. Main portal and splenic veins enhance normally. Bladder: Urinary bladder appears normal. Reproductive: Uterus is surgically absent. Bones/joints: Bony structures show no acute fracture or destructive process. IMPRESSION: 1. No acute surgical or inflammatory intra-abdominal or pelvic process. 2. Postoperative changes of bowel with and asked him OC showing no obstruction or dehiscence. Electronically signed by: Mo Ny On 09/07/2019 02:34:51 AM
--- NOTE | 2019-09-07 02:50 | REP ---
Clinical: Lower chest and abdominal pain . Comparison: 06/08/2019 . Technique: PA and lateral. Findings: The mediastinum and cardiac silhouette are normal. The lung brennan are clear and without acute consolidation, effusion, or pneumothorax. The skeletal structures are intact and normal. Impression: 1. No acute cardiopulmonary process. Electronically Signed by Juan Antonio Mccabe MD 09/07/2019 02:41 A
[2019-09-07] MEDS ORDERED: dexameTHASONE 20MG/5ML VIAL (J1100 PER 1MG) IV ONE (03:45)
[2019-09-07] MEDS ORDERED: NORCO, ANEXSIA 5/325MG TABLET (HYDROcodone/ACETAMINOPHEN) PO ONE (04:00)
[2019-09-07 04:10] VITALS: BP 130/70
--- NOTE | 2019-09-08 07:09 | ECGEPIP ---
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
== END 2019-09-07 04:12 | disposition home or self-care (01) ==
LOC: M ED 00:43
DX: K50.90 Crohn's disease, unspecified, without complications (principal); F43.10 Post-traumatic stress disorder, unspecified; Z79.899 Other long term (current) drug therapy; Z88.8 Allergy status to other drugs, medicaments and biological substances; Z91.041 Radiographic dye allergy status; F17.210 Nicotine dependence, cigarettes, uncomplicated
CPT/HCPCS: 71046; 74177; 80053; 80076; 82150; 82550; 82553; 83690; 84703; 85025; 85610; 85730; 93005; 96361; 96374; 96375; 99284; J1100; J1885; J2405; Q9967

== ENCOUNTER 2019-09-20 17:44 | Emergency (ER) | payer OTHER ==
[~2019-09-20] VITALS: Ht 157.5 cm; Wt 95.8 kg
[2019-09-20] MEDS ORDERED: CLON0.5T2 (17:51)
[2019-09-20] MEDS ORDERED: MORPHINE 4 MG/ML 1ML VIAL/SYRINGE (J2270) IV ONE ×2 (18:15→19:00)
[2019-09-20] MEDS ORDERED: ONDANSETRON 4MG/2ML VIAL IV ONE (18:15)
[2019-09-20] MEDS ORDERED: NS 1,000 ML IV ONE (18:15)
[2019-09-20 18:41] LABS: BASO % 0.4 % (0.0-1.0); EOS # 0.1 10^3/uL (0.0-0.5); EOS % 0.8 % (0.0-3.0); HEMATOCRIT 41.3 % (36.0-47.0); HEMOGLOBIN 13.5 g/dl (12.0-15.5); LYMPH # 1.8 10^3/uL (1.5-5.0); LYMPH % 16.9 % (24.0-44.0); MEAN CORPUSCULAR HEMOGLOBIN 30.3 pg (27.0-33.0); MEAN CORPUSCULAR HGB CONC 32.7 g/dl (32.0-36.5); MEAN CORPUSCULAR VOLUME 92.8 fl (80.0-96.0); MONO # 0.7 10^3/uL (0.0-0.8); MONO % 6.6 % (0.0-5.0); PLATELET COUNT, AUTOMATED 494 10^3/uL (150-450); RED BLOOD COUNT 4.45 10^6/uL (4.00-5.40); WHITE BLOOD COUNT 10.6 10^3/uL (4.0-10.0)
[2019-09-20 19:11] LABS: ALBUMIN 3.7 GM/DL (3.2-5.2); ALT/SGPT 124 U/L (12-78); BILIRUBIN,DIRECT 0.1 MG/DL (0.0-0.2); BILIRUBIN,TOTAL 0.4 MG/DL (0.2-1.0); BLOOD UREA NITROGEN 8 MG/DL (7-18); C REACTIVE PROTEIN QUANTITATIV 1.62 MG/DL (0.00-0.30); CALCIUM LEVEL 8.7 MG/DL (8.5-10.1); CARBON DIOXIDE LEVEL 22 MEQ/L (21-32); CHLORIDE LEVEL 106 MEQ/L (98-107); CREATININE FOR GFR 0.83 MG/DL (0.55-1.30); GLOMERULAR FILTRATION RATE > 60.0 (>60); GLUCOSE, FASTING 97 MG/DL (70-100); LIPASE 174 U/L (73-393); POTASSIUM SERUM 4.2 MEQ/L (3.5-5.1); SODIUM LEVEL 138 MEQ/L (136-145); TOTAL PROTEIN 7.3 GM/DL (6.4-8.2)
[2019-09-20] MEDS ORDERED: ISOVUE-370 76% 100ML VIAL As Ordered ONE (19:14)
[2019-09-20 19:17] LABS: ERYTHROCYTE SEDIMENTATION RATE 17 mm/hr (0-20)
[2019-09-20] MEDS ORDERED: diphenhydrAMINE 50MG/ML VIAL (J1200) IV STA (19:19)
--- NOTE | 2019-09-20 19:55 | REPVR ---
PROCEDURE INFORMATION: Exam: CT Abdomen And Pelvis With Contrast Exam date and time: 09/20/2019 7:44 PM Age: 33 years old Clinical indication: Abdominal pain; Localized; Right upper quadrant (ruq); Additional info: Severe ruq pain, syncope, diarrhea, crohns TECHNIQUE: Imaging protocol: Computed tomography of the abdomen and pelvis with intravenous contrast. Radiation optimization: All CT scans at this facility use at least one of these dose optimization techniques: automated exposure control; mA and/or kV adjustment per patient size (includes targeted exams where dose is matched to clinical indication); or iterative reconstruction. Contrast material: ISOVUE 370; Contrast volume: 100 ml; Contrast route: IV; COMPARISON: CT ABD/PEL W/IV CONTRAST ONLY 09/07/2019 2:15 AM FINDINGS: Lungs: Calcified granuloma right lower lobe. Liver: There is a diffuse decrease in hepatic parenchymal density, consistent with steatosis. Gallbladder and bile ducts: There has been a cholecystectomy. Pancreas: Normal. No ductal dilation. Spleen: The spleen demonstrates punctate calcifications, consistent with remote granulomatous organism exposure. Adrenals: Normal. No mass. Kidneys and ureters: Normal. No hydronephrosis. Stomach and bowel: Postsurgical changes in a dilated small bowel loop in the left upper quadrant. Otherwise unremarkable. No bowel obstruction. Appendix: There has been an appendectomy. Intraperitoneal space: Unremarkable. No free air. No significant fluid collection. Vasculature: Unremarkable. No abdominal aortic aneurysm. Lymph nodes: Unremarkable. No enlarged lymph nodes. Bladder: Unremarkable as visualized. Reproductive: There has been a hysterectomy. Bones/joints: Moderate central spinal stenosis L4-L5 mild central spinal stenosis L5-S1. Soft tissues: Unremarkable. IMPRESSION: 1. There is a diffuse decrease in hepatic parenchymal density, consistent with steatosis. 2. There has been a cholecystectomy. 3. There has been a hysterectomy. Electronically signed by: Kingston Mojica On 09/20/2019 19:55:20 PM
--- NOTE | 2019-09-20 19:57 | ECGEPIP ---
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
[2019-09-20 20:00] VITALS: BP 129/73
[2019-09-20] MEDS ORDERED: PRED20TA PO (20:24)
[2019-09-20] MEDS ORDERED: predniSONE 20 MG TAB PO ONE (20:30)
[2019-09-20] MEDS ORDERED: NORCO 5/325MG TABLET (BULK FOR ED) PO ONE (20:30)
== END 2019-09-20 20:48 | disposition home or self-care (01) ==
LOC: M ED 17:44
DX: K50.90 Crohn's disease, unspecified, without complications (principal); R11.2 Nausea with vomiting, unspecified; R55 Syncope and collapse; F17.200 Nicotine dependence, unspecified, uncomplicated; Z90.49 Acquired absence of other specified parts of digestive tract; Z91.041 Radiographic dye allergy status; Z88.5 Allergy status to narcotic agent; Z88.8 Allergy status to other drugs, medicaments and biological substances; Z79.899 Other long term (current) drug therapy
CPT/HCPCS: 74177; 80048; 80076; 83605; 83690; 84443; 85025; 85652; 86140; 93005; 96361; 96374; 96375; 96376; 99284; J1200; J2270; J2405; Q9967

== ENCOUNTER → 2019-10-19 | Outpatient (CLI) | payer OTHER ==
[~2019-10-19] MED LIST changes: +CLON0.5T2; +CYCL-707 PO; +ENTY1INJ; +FLUO20CA22; +LIDOCAINE 1% MDV 20ML VIAL As Ordered ONE; +MIDAZOLAM INJ 2MG/2ML VIAL (J2250 PER 1MG) As Ordered ONE; +ceFAZolin 1GM VIAL (J0690 PER 500MG) As Ordered ONE; +diazePAM 5 MG TAB As Ordered ONE; +diphenhydrAMINE 50MG/ML VIAL (J1200) As Ordered ONE; +fentaNYL 100 MCG/2 ML INJECTION (J3010) As Ordered ONE
--- NOTE | 2019-10-19 14:48 | REP ---
IR Ultrasound and fluoroscopy-guided port placement. IR Ultrasound of the neck. IR Moderate sedation. Clinical information: Crohn disease . Physician: Dr. Richard. Procedure: The patient was advised of the benefits, risks, and alternatives of the procedure and informed consent was obtained. A time-out was performed with verification of the patient's name, MRN, site of procedure and type of procedure to be performed. The patient was positioned in the supine position on the angiographic table. The site was prepped and draped in the usual sterile fashion. Moderate sedation was performed by the physician including the presence of an independent trained observer who assisted and monitored the patient's level of consciousness and physiologic status. Following the administration of ??, the physician spent 30 minutes of continuous face to face time with the patient. Ultrasound of the neck reveals a patent and compressible right internal jugular vein. A flyer builder radiograph reveals no gross abnormality. The neck and anterior chest wall were anesthetized with lidocaine. The right internal jugular vein was accessed using a microintroducer needle under ultrasound guidance, via a lateral approach. An 018 wire was advanced into the superior vena cava, the needle was removed and a microsheath was placed. An Amplatz wire was then passed into the inferior vena cava. An incision at the internal jugular vein access site and anterior chest wall were made using a scalpel. An incision was made at the anterior chest wall. A small pocket was created using a combination of blunt and sharp dissection. A tunneling device was then used to pass the catheter from the pocket to the neck puncture site. An 8-[place] [employer] Smart power port was then positioned in the pocket. The catheter was then measured and cut. The introducer sheath was exchanged for a peel-away sheath. The catheter was passed through the peel-away sheath into the internal jugular vein and the peel-away sheath was removed. The port tip was positioned at the cavoatrial junction. The port was then accessed with a Amezquita needle. The port flushes and aspirates well. The puncture site in the neck was closed. The chest wall incision was then closed with 2-0 Vicryl and 4-0 Monocryl. Glue and Steri-Strips were applied. A sterile dressing was then applied. The patient tolerated the procedure well and was returned to the PRU in stable condition. Estimated blood loss: <5 ml. Complications: None. Conclusion: 1. Successful placement of an 8-[place] Angio dynamics power port via the right internal jugular vein. The port is ready for immediate use. 2. Patient to follow up in IR clinic in 2 weeks. Thank you for this referral. Electronically Signed by Mary Richard MD 10/19/2019 02:47 P
--- NOTE | 2019-10-19 14:52 | POST-OPPD ---
Postoperative Procedure Note Date Of Procedure: Oct 19, 2019 Time Of Procedure: 14:52 Please see full report under imaging tab; study name guidance fluoroscopy or CT guidance or US guidance. ETHAN VERDIN MD Oct 19, 2019 14:52
--- NOTE | 2019-10-19 14:52 | IRHP ---
[facility] IR Pre-Procedure H & P General Date of Service: Oct 19, 2019 Procedure: Same Day Surgery Interval History and Physical I have seen the patient and reviewed last H & P performed within 30 days. There is no significant interval change. History of Present Illness Chief Complaint The patient is a 33-year-old female admitted with a reason for visit of Crohn's Disease. PRE-PROCEDURE DIAGNOSIS: crohn's disease HEART:normal rate LUNGS: normal breathing at rest. ASA Classification ASA Classification: II-Mild systemic disease, III-Severe systemic dis. Mallampati Score: II NPO: Yes Problems with prior sedation: No Obstructive Sleep Apnea: No Plan moderate sedation Allergies Coded Allergies: infliximab (Verified Allergy, Severe, anaphylaxis, 09/07/19) Contrast Media (Verified Allergy, Intermediate, "mri injection dye" hives, 09/07/19) codeine (Verified Adverse Reaction, Mild, vomiting, 09/07/19) Home Medications Scheduled Buspirone HCl (Buspirone HCl), 20 MG PO BID, (Reported) Clonazepam (Clonazepam), QHS, (Reported) Dicyclomine HCl (Dicyclomine HCl), 1 TAB PO TID Fluoxetine HCl (Prozac), 20 MG PO DAILY, (Reported) Mercaptopurine (Mercaptopurine), 50 MG PO QAM, (Reported) Omeprazole (Omeprazole), 40 MG PO DAILY, (Reported) Prednisone (Prednisone), 40 MG PO DAILY Scheduled PRN Acetaminophen (Acetaminophen), 650 MG PO Q4HP PRN for PAIN / FEVER, (Reported) Ondansetron HCl (Zofran), 4 MG PO Q4HP PRN for NAUSEA, (Reported) VS, I&O, 24H, Fishbone Vital Signs/I&O Vital Signs Date Time Temp Pulse Resp B/P (MAP) Pulse Ox O2 Delivery O2 Flow Rate FiO2 10/19/19 14:49 74 18 97 Room Air 10/19/19 14:25 2 10/19/19 13:00 97 ETHAN VERDIN MD Oct 19, 2019 14:52
[2019-10-19 16:14] VITALS: BP 132/93
== END ==
LOC: M IRPRO 12:27
DX: K50.80 Crohn's disease of both small and large intestine without complications (principal); D64.9 Anemia, unspecified; F32.9 Major depressive disorder, single episode, unspecified; F41.9 Anxiety disorder, unspecified; H55.01 Congenital nystagmus; K21.9 Gastro-esophageal reflux disease without esophagitis; K76.0 Fatty (change of) liver, not elsewhere classified; F17.210 Nicotine dependence, cigarettes, uncomplicated; Z79.899 Other long term (current) drug therapy; Z88.5 Allergy status to narcotic agent; Z88.8 Allergy status to other drugs, medicaments and biological substances; Z91.041 Radiographic dye allergy status
CPT/HCPCS: 36561; 99152; 99153; C1769; C1788; C1894; J0690; J1200; J1642; J1644; J2250; J3010

== ENCOUNTER 2019-10-23 07:37 | Outpatient (CLI) | payer OTHER ==
[~2019-10-23] VITALS: Ht 157.5 cm; Wt 85.7 kg
[~2019-10-23 07:37] MED LIST changes: -CYCL-707 PO; -ENTY1INJ; -FLUO20CA22; -LIDOCAINE 1% MDV 20ML VIAL As Ordered ONE; -MIDAZOLAM INJ 2MG/2ML VIAL (J2250 PER 1MG) As Ordered ONE; -ceFAZolin 1GM VIAL (J0690 PER 500MG) As Ordered ONE; -diazePAM 5 MG TAB As Ordered ONE; -diphenhydrAMINE 50MG/ML VIAL (J1200) As Ordered ONE; -fentaNYL 100 MCG/2 ML INJECTION (J3010) As Ordered ONE
[2019-10-23] MEDS ORDERED: ACETAMINOPHEN TAB 650MG DOSE (2X325MG) PO ONE (08:00)
[2019-10-23] MEDS ORDERED: SODIUM CHLORIDE 0.9% INJ 10 ML SYR IV PRN (08:00)
[2019-10-23] MEDS ORDERED: diphenhydrAMINE 25MG CAP PO ONE (08:00)
[2019-10-23 08:07] VITALS: BP 129/72
[2019-10-23] MEDS ORDERED: VEDOLIZUMAB 300 MG in NS 250 ML IV ONE (09:00)
[2019-10-23] MEDS ORDERED: SODIUM CHLORIDE 0.9% INJ 10 ML SYR IV SCH (09:00)
[2019-10-23 09:20] VITALS: BP 124/76
[2019-10-23] MEDS ORDERED: ENTY1INJ (16:20)
[2019-10-23] MEDS ORDERED: CYCL-707 PO (18:42)
== END 2019-10-23 09:20 | disposition home or self-care (01) ==
LOC: M INFU 07:37
PROVIDERS: ATTEND Internal Medicine Gastroenterology
DX: K50.80 Crohn's disease of both small and large intestine without complications (principal)
CPT/HCPCS: J1642; J3380

== ENCOUNTER 2019-10-23 16:12 | Emergency (ER) | payer OTHER ==
[~2019-10-23] VITALS: Ht 157.5 cm; Wt 95.1 kg
[2019-10-23] MEDS ORDERED: ENTY1INJ (16:20)
--- NOTE | 2019-10-23 17:42 | REP ---
Clinical: Trauma . Comparison: 09/07/2019 . Findings: The mediastinum and cardiac silhouette are stable and within normal limits for portable technique. The lung brennan are clear without acute consolidation, effusion, or pneumothorax. Skeletal structures are intact. Impression: No acute cardiopulmonary process appreciated. Electronically Signed by Juan Antonio Mccabe MD 10/23/2019 05:33 P
[2019-10-23] MEDS ORDERED: CYCLOBENZAPRINE 10MG TABLET PO ONE (17:45)
[2019-10-23] MEDS ORDERED: CYCL-707 PO (18:42)
[2019-10-23 18:49] VITALS: BP 139/94
== END 2019-10-23 18:54 | disposition home or self-care (01) ==
LOC: M ED 16:12
DX: M54.2 Cervicalgia (principal); R07.89 Other chest pain; Z95.828 Presence of other vascular implants and grafts

== ENCOUNTER 2019-10-27 11:34 | Emergency (ER) | payer OTHER ==
[~2019-10-27] VITALS: Ht 157.5 cm; Wt 93.7 kg
[~2019-10-27 11:34] MED LIST changes: +CYCL-707 PO; +ENTY1INJ; +SODIUM CHLORIDE 0.9% INJ 10 ML SYR IV SCH
[2019-10-27] MEDS ORDERED: MORPHINE 4 MG/ML 1ML VIAL/SYRINGE (J2270) IV PRN (12:15)
[2019-10-27] MEDS ORDERED: ONDANSETRON 4MG/2ML VIAL IV ONE (12:15)
[2019-10-27] MEDS ORDERED: NS 500 ML IV ONE (12:15)
[2019-10-27 13:38] LABS: BASO % 0.3 % (0.0-1.0); EOS # 0.1 10^3/uL (0.0-0.5); EOS % 1.5 % (0.0-3.0); HEMATOCRIT 41.6 % (36.0-47.0); HEMOGLOBIN 13.5 g/dl (12.0-15.5); LYMPH # 1.1 10^3/uL (1.5-5.0); LYMPH % 12.8 % (24.0-44.0); MEAN CORPUSCULAR HEMOGLOBIN 30.8 pg (27.0-33.0); MEAN CORPUSCULAR HGB CONC 32.5 g/dl (32.0-36.5); MONO # 0.7 10^3/uL (0.0-0.8); MONO % 7.8 % (0.0-5.0); NEUTROPHILS # 6.7 10^3/uL (1.5-8.5); PLATELET COUNT, AUTOMATED 303 10^3/uL (150-450); RED BLOOD COUNT 4.38 10^6/uL (4.00-5.40); WHITE BLOOD COUNT 8.7 10^3/uL (4.0-10.0)
[2019-10-27] MEDS ORDERED: ISOVUE-370 76% 100ML VIAL As Ordered ONE (13:43)
[2019-10-27 14:05] LABS: ALBUMIN 3.5 GM/DL (3.2-5.2); ALT/SGPT 30 U/L (12-78); BILIRUBIN,DIRECT < 0.1 MG/DL (0.0-0.2); BILIRUBIN,TOTAL 0.4 MG/DL (0.2-1.0); LIPASE 95 U/L (73-393)
[2019-10-27] MEDS ORDERED: diphenhydrAMINE 50MG/ML VIAL (J1200) IV STA (14:59)
[2019-10-27 16:37] VITALS: BP 126/88
--- NOTE | 2019-10-27 23:47 | REP ---
REASON: Right lower quadrant pain. COMPARISON: 09/20/2019 CONTRAST: 100 mL Isovue-370. The lung bases are again seen to be clear. The liver, spleen, pancreas, adrenal glands, and kidneys are again seen to be within normal limits. The patient is status post cholecystectomy. There is no free fluid or free air in the abdomen or pelvis. There are a few mildly dilated fluid-filled small bowel loops in the abdomen. Seen along the cecal region, there is a well-demarcated surgical staple line, which has been present for many years. The patient is status post small bowel resection due to Crohn disease. The appendix is not visualized. The patient may, in fact, be status post appendectomy. There is no intra-abdominal or intrapelvic mass or adenopathy. The osseous structures are stable and intact. IMPRESSION: 1. The appendix is not visualized. There is no evidence of acute appendicitis. The patient may be status post appendectomy. 2. There is a mild small bowel ileus. Electronically Signed by Jamie Witt DO 10/28/2019 09:26 A
== END 2019-10-27 16:50 | disposition home or self-care (01) ==
LOC: M ED 11:34
DX: K56.7 Ileus, unspecified (principal); F17.218 Nicotine dependence, cigarettes, with other nicotine-induced disorders; Z91.041 Radiographic dye allergy status; Z88.5 Allergy status to narcotic agent; Z88.8 Allergy status to other drugs, medicaments and biological substances
CPT/HCPCS: 74177; 80047; 80076; 81001; 83690; 85025; 96374; 96375; 99283; J1200; J1642; J2270; J2405; Q9967

== ENCOUNTER 2019-10-31 12:59 | Emergency (ER) | payer OTHER ==
[~2019-10-31] VITALS: Ht 165.1 cm; Wt 94.2 kg
[~2019-10-31 12:59] MED LIST changes: -SODIUM CHLORIDE 0.9% INJ 10 ML SYR IV SCH
[2019-10-31] MEDS ORDERED: ONDANSETRON 4MG/2ML VIAL IV ONE ×2 (13:45→18:00)
[2019-10-31] MEDS ORDERED: NS 1,000 ML IV ONE (13:45)
[2019-10-31] MEDS: fentaNYL 100 MCG/2 ML INJECTION (J3010) IV PRN ×4 (14:10→17:20)
[2019-10-31 14:11] LABS: BASO % 0.2 % (0.0-1.0); EOS # 0.1 10^3/uL (0.0-0.5); HEMATOCRIT 41.2 % (36.0-47.0); HEMOGLOBIN 13.3 g/dl (12.0-15.5); LYMPH % 11.8 % (24.0-44.0); MEAN CORPUSCULAR HEMOGLOBIN 30.4 pg (27.0-33.0); MEAN CORPUSCULAR HGB CONC 32.3 g/dl (32.0-36.5); MEAN CORPUSCULAR VOLUME 94.1 fl (80.0-96.0); MONO # 0.6 10^3/uL (0.0-0.8); MONO % 6.5 % (0.0-5.0); NEUTROPHILS # 7.1 10^3/uL (1.5-8.5); NEUTROPHILS % 79.9 % (36.0-66.0); PLATELET COUNT, AUTOMATED 303 10^3/uL (150-450); RED BLOOD COUNT 4.38 10^6/uL (4.00-5.40); WHITE BLOOD COUNT 8.8 10^3/uL (4.0-10.0)
[2019-10-31 14:28] LABS: ALBUMIN 3.7 GM/DL (3.2-5.2); BILIRUBIN,DIRECT 0.1 MG/DL (0.0-0.2); BILIRUBIN,TOTAL 0.3 MG/DL (0.2-1.0); TOTAL PROTEIN 7.2 GM/DL (6.4-8.2)
[2019-10-31] MEDS ORDERED: diphenhydrAMINE 50MG/ML VIAL (J1200) IV STA (15:14)
[2019-10-31] MEDS ORDERED: methylPREDNISolone 125MG 2ML VIAL IV ONE (15:15)
[2019-10-31] MEDS ORDERED: FAMOTIDINE IV BAG 20 MG in IV 1 EA IV ONE (15:15)
[2019-10-31] MEDS: GASTROGRAFIN SOLUTION 30ML PO SCH ×2 (16:06→16:43)
[2019-10-31] MEDS ORDERED: ISOVUE-370 76% 100ML VIAL As Ordered ONE ×2 (17:29→17:44)
--- NOTE | 2019-10-31 18:09 | REPVR ---
PROCEDURE INFORMATION: Exam: CT Abdomen And Pelvis With Contrast Exam date and time: 10/31/2019 5:31 PM Age: 33 years old Clinical indication: Abdominal pain; Additional info: HX chrohns - RO bowel obstruction; Pre treating TECHNIQUE: Imaging protocol: Computed tomography of the abdomen and pelvis with intravenous contrast. Radiation optimization: All CT scans at this facility use at least one of these dose optimization techniques: automated exposure control; mA and/or kV adjustment per patient size (includes targeted exams where dose is matched to clinical indication); or iterative reconstruction. Contrast material: ISOVUE 370; Contrast volume: 100 ml; Contrast route: INTRAVENOUS (IV); COMPARISON: CT ABD/PEL W/IV CONTRAST ONLY 10/27/2019 1:52 PM FINDINGS: Lungs: Calcified granuloma associated with parenchymal scarring in the right lower lobe. Liver: There is a diffuse decrease in hepatic parenchymal density, consistent with steatosis. Gallbladder and bile ducts: There has been a cholecystectomy. Pancreas: Normal. No ductal dilation. Spleen: The spleen demonstrates punctate calcifications, consistent with remote granulomatous organism exposure. Borderline splenomegaly. Adrenals: Normal. No mass. Kidneys and ureters: Normal. No hydronephrosis. Stomach and bowel: Stable anastomosis in the cecum. Boggy thick-walled appearance of the proximal and mid transverse colon as well as the right colon may be related to incomplete distention however segmental colitis is not excluded. No bowel obstruction demonstrated. Appendix: There has been an appendectomy. Intraperitoneal space: Unremarkable. No free air. No significant fluid collection. Vasculature: Unremarkable. No abdominal aortic aneurysm. Lymph nodes: Unremarkable. No enlarged lymph nodes. Bladder: Unremarkable as visualized. Reproductive: There has been a hysterectomy. Bones/joints: Mild central spinal stenosis L4-L5 and bulging annulus with central disc protrusion at L5-S1 may impinge upon the left S1 nerve root as it exits from the thecal sac. Correlation with clinical exam suggested. Further evaluation with lumbar MRI could be obtained if clinically desired. Soft tissues: Unremarkable. Other findings: No intra-abdominal abscess demonstrated. IMPRESSION: 1. There has been a cholecystectomy. 2. There is a diffuse decrease in hepatic parenchymal density, consistent with steatosis. 3. There has been a hysterectomy. 4. Boggy thick-walled appearance of the proximal and mid transverse colon as well as the right colon may be related to incomplete distention however segmental colitis is not excluded. 5. No bowel obstruction demonstrated. 6. No intra-abdominal abscess demonstrated. Electronically signed by: Kingston Mojica On 10/31/2019 18:09:27 PM
[2019-10-31] MEDS ORDERED: OXYCODONE/APAP 5MG/325MG(BULK FOR ED) 1 TABLET PO ONE (18:30)
[2019-10-31] MEDS ORDERED: HEPARIN SOD (PORCINE) 5000UNITS/ML 1ML VIAL/SYRINGE IV ONE (18:45)
[2019-10-31 18:57] VITALS: BP 127/98
--- NOTE | 2019-11-01 12:23 | REP ---
AP PORTABLE CHEST: 10/31/2019. COMPARISON: 10/23/2019. CLINICAL HISTORY: Assess power port. FINDINGS: Lung brennan remain well inflated and clear. The heart, mediastinal and hilar contours are unchanged. Aorta is normal for age. Airway intact. Bones without acute finding. There is a right jugular port catheter and its position and orientation unchanged. Its tip is in the distal SVC near the right atrium. There is a needle seen within that port. Visualized bony structures are unremarkable. IMPRESSION: 1. Negative AP portable chest. The right jugular port catheter appears intact. There appears to be a needle puncturing the access point of the port. No change in appearance or orientation from 10/23/2019. Electronically Signed by Tc Alcantar MD 11/01/2019 06:54 P
== END 2019-10-31 19:04 | disposition home or self-care (01) ==
LOC: M ED 12:59
DX: K50.90 Crohn's disease, unspecified, without complications (principal); F33.9 Major depressive disorder, recurrent, unspecified; F41.9 Anxiety disorder, unspecified; F43.10 Post-traumatic stress disorder, unspecified; Z79.899 Other long term (current) drug therapy; Z88.5 Allergy status to narcotic agent; Z88.8 Allergy status to other drugs, medicaments and biological substances; Z91.040 Latex allergy status; F17.210 Nicotine dependence, cigarettes, uncomplicated
CPT/HCPCS: 71045; 74177; 80047; 80076; 83605; 83690; 84702; 85025; 96361; 96365; 96375; 96376; 99284; J1200; J2405; J2930; J3010; Q9963; Q9967

== ENCOUNTER 2019-11-03 18:39 | Emergency (ER) | payer OTHER ==
[~2019-11-03] VITALS: Ht 157.5 cm; Wt 94.7 kg
[~2019-11-03 18:39] MED LIST changes: -FLUO20CA22
[2019-11-03] MEDS ORDERED: FLUO20CA22 (18:46)
[2019-11-03] MEDS ORDERED: NS 1,000 ML IV ONE (19:45)
[2019-11-03] MEDS ORDERED: ONDANSETRON 4MG/2ML VIAL IV ONE (19:45)
[2019-11-03 20:04] LABS: BASO % 0.4 % (0.0-1.0); EOS # 0.1 10^3/uL (0.0-0.5); EOS % 1.2 % (0.0-3.0); HEMATOCRIT 43.3 % (36.0-47.0); HEMOGLOBIN 14.1 g/dl (12.0-15.5); LYMPH # 1.8 10^3/uL (1.5-5.0); MEAN CORPUSCULAR HEMOGLOBIN 30.5 pg (27.0-33.0); MEAN CORPUSCULAR HGB CONC 32.6 g/dl (32.0-36.5); MEAN CORPUSCULAR VOLUME 93.7 fl (80.0-96.0); MONO # 0.9 10^3/uL (0.0-0.8); MONO % 7.9 % (0.0-5.0); NEUTROPHILS # 8.4 10^3/uL (1.5-8.5); NEUTROPHILS % 73.9 % (36.0-66.0); PLATELET COUNT, AUTOMATED 363 10^3/uL (150-450); RED BLOOD COUNT 4.62 10^6/uL (4.00-5.40); WHITE BLOOD COUNT 11.3 10^3/uL (4.0-10.0)
[2019-11-03 20:28] LABS: ALBUMIN 3.5 GM/DL (3.2-5.2); ALT/SGPT 27 U/L (12-78); BILIRUBIN,DIRECT < 0.1 MG/DL (0.0-0.2); BILIRUBIN,TOTAL 0.2 MG/DL (0.2-1.0); LIPASE 145 U/L (73-393)
[2019-11-03] MEDS: MORPHINE 4 MG/ML 1ML VIAL/SYRINGE (J2270) IV PRN ×2 (20:31→22:25)
[2019-11-03] MEDS: GASTROGRAFIN SOLUTION 30ML PO SCH ×2 (20:41→21:16)
[2019-11-03] MEDS ORDERED: ISOVUE-370 76% 100ML VIAL As Ordered ONE (21:43)
[2019-11-04] MEDS: HYDROMORPHONE HCL 0.5 MG/ 0.5 ML SYRINGE (J1170 PER 1) IV PRN ×2 (01:30→02:27)
--- NOTE | 2019-11-04 01:33 | REPVR ---
PROCEDURE INFORMATION: Exam: CT Abdomen And Pelvis With Contrast Exam date and time: 11/03/2019 9:47 PM Age: 33 years old Clinical indication: Abdominal pain; Generalized; Additional info: Right sided abd pain, HX of crohn's TECHNIQUE: Imaging protocol: Computed tomography of the abdomen and pelvis with intravenous contrast. Radiation optimization: All CT scans at this facility use at least one of these dose optimization techniques: automated exposure control; mA and/or kV adjustment per patient size (includes targeted exams where dose is matched to clinical indication); or iterative reconstruction. Contrast material: ISO; Contrast volume: 100 ml; Contrast route: INTRAVENOUS (IV); COMPARISON: CT ABD/PEL W/IV ORAL CONTRAS 10/31/2019 5:32 PM FINDINGS: Lungs: Clear appearing lung bases. Heart: The heart is normal in size. Liver: Normal appearing liver. Gallbladder and bile ducts: There are surgical clips at the gallbladder fossa. Normal common bile duct. Pancreas: The pancreas is normal in size. Spleen: Normal. No splenomegaly. Adrenals: Normal adrenal glands. Kidneys and ureters: There is enhancement of both kidneys. Stomach and bowel: There is stool and contrast in the transverse colon and left colon. There are surgical clips in the region of a loop of small bowel with an air-fluid level , upper abdomen. This is just below the stomach. Dilatation of this loop of small bowel has decreased since the examination of 10/31/2019. The contrast that was used on the previous CT scan has passed through the small bowel and now in the transverse and left colon. Appendix: The appendix is not visualized. The Intraperitoneal space: There is no evidence of pneumoperitoneum. Vasculature: There is opacification of the aorta and the aorta appears normal in size. There is opacification of the SMA and SMV. Lymph nodes: Unremarkable. No enlarged lymph nodes. Bladder: Normal appearing urinary bladder. Reproductive: The patient is status post hysterectomy. Bones/joints: Unremarkable. No acute fracture. Soft tissues: Unremarkable. IMPRESSION: 1. In a 3 day interval the oral contrast has passed through the small-bowel and now in the transverse and left colon. 2. There is a dilated loop of small bowel in the upper abdomen just below the stomach with surgical clips noted along the margin. There are a are secretions with dilute contrast and the dilatation is decreased from the previous examination there is however an air-fluid level. Electronically signed by: Hank Kc On 11/04/2019 01:32:45 AM
[2019-11-04] MEDS ORDERED: methylPREDNISolone 125MG 2ML VIAL As Ordered ONE (02:20)
[2019-11-04] MEDS ORDERED: methylPREDNISolone 125MG 2ML VIAL IV ONE (02:30)
[2019-11-04 02:45] VITALS: BP 141/94
--- NOTE | 2019-11-04 06:10 | REP ---
CHEST, SINGLE VIEW: There is no evidence of acute infiltrate. No pleural effusion is seen. The heart is normal in size. The mediastinal silhouette is unremarkable. The visualized osseous structures are intact. There is a right central venous catheter with the tip in the superior vena cava, unchanged. IMPRESSION: No acute pulmonary disease. Electronically Signed by Lauri Gomes MD 11/04/2019 11:15 P
--- NOTE | 2019-11-04 13:12 | ED PDOC ---
Post-Departure Follow-Up dr jaspreet lomeli faxed t abd/p for fu Brent Long MD Nov 04, 2019 13:12
--- NOTE | 2019-11-05 09:50 | ED PDOC ---
Post-Departure Follow-Up ct abd/p fxed to dr jaspreet lomeli - new addendum m Brent Long MD Nov 05, 2019 09:50
== END 2019-11-04 02:47 | disposition home or self-care (01) ==
LOC: M ED 18:39
DX: K50.019 Crohn's disease of small intestine with unspecified complications (principal); Z88.5 Allergy status to narcotic agent; Z91.041 Radiographic dye allergy status; Z79.899 Other long term (current) drug therapy; Z88.8 Allergy status to other drugs, medicaments and biological substances; F17.210 Nicotine dependence, cigarettes, uncomplicated
CPT/HCPCS: 71045; 74177; 80047; 80076; 83690; 84702; 85025; 96361; 96374; 96375; 96376; 99284; J1170; J1642; J2270; J2405; J2930; Q9963; Q9967

== ENCOUNTER → 2019-11-03 | Outpatient (POV) | payer OTHER ==
[~2019-11-03] MED LIST changes: +FLUO20CA22
--- NOTE | 2019-11-05 11:27 | IRPN ---
[facility] IR Progress Note IR Progress Note DATE: Nov 03, 2019 Patient agreed to this-telephone consultation. Duration of call was 5 minutes. FOLLOW-UP: Status post port placement. Patient doing well. Port used without any difficulty. Patient had recent hospitalization for Crohn's disease and states the port has " changed her life". She did not require peripheral sticks. IMPRESSION: Doing well status post port placement. No further follow-up scheduled unless initiated by patient and or referring provider. Thank you for this referral Allergies Coded Allergies: infliximab (Verified Allergy, Severe, anaphylaxis, 09/07/19) Contrast Media (Verified Allergy, Intermediate, "mri injection dye" hives, 09/07/19) codeine (Verified Adverse Reaction, Mild, vomiting, 09/07/19) ETHAN VERDIN MD Nov 05, 2019 11:27
== END ==
LOC: M IRPOV 08:51
PROVIDERS: ATTEND Radiology Diagnostic Radiology
DX: Z45.2 Encounter for adjustment and management of vascular access device (principal)

== ENCOUNTER 2019-11-19 09:00 | Outpatient (CLI) | payer OTHER ==
[~2019-11-19 09:00] MED LIST changes: +FLUO20CA22
[2019-11-19] MEDS ORDERED: VEDOLIZUMAB 300MG VIAL (ENTYVIO) (J3380 PER 1MG) ONE (09:01)
[2019-11-19] MEDS ORDERED: diphenhydrAMINE 25MG CAP As Ordered ONE (09:17)
[2019-11-19] MEDS ORDERED: ACETAMINOPHEN 325 MG TAB As Ordered ONE (09:18)
== END 2019-11-19 10:45 | disposition home or self-care (01) ==
LOC: M INFU 09:00
PROVIDERS: ATTEND Internal Medicine Gastroenterology
DX: K50.80 Crohn's disease of both small and large intestine without complications (principal)
CPT/HCPCS: 96365; J1642; J3380

== ENCOUNTER 2019-11-21 18:43 | Emergency (ER) | payer OTHER ==
[2019-11-21] MEDS ORDERED: ONDANSETRON 4MG/2ML VIAL As Ordered ONE (19:18)
[2019-11-21] MEDS ORDERED: ONDANSETRON 4MG/2ML VIAL ONE (19:18)
[2019-11-21] MEDS ORDERED: MORPHINE 4 MG/ML 1ML VIAL/SYRINGE (J2270) As Ordered ONE ×2 (19:18→20:32)
[2019-11-21] MEDS ORDERED: MORPHINE 4 MG/ML 1ML VIAL/SYRINGE (J2270) ONE ×2 (19:18→20:32)
[2019-11-21] MEDS ORDERED: GASTROGRAFIN SOLUTION 30ML (Q9963) As Ordered ONE (20:02)
[2019-11-21] MEDS ORDERED: GASTROGRAFIN SOLUTION 30ML (Q9963) ONE ×2 (20:02)
[2019-11-21] MEDS ORDERED: ISOVUE-370 76% 100ML VIAL As Ordered ONE (21:14)
[2019-11-21] MEDS ORDERED: KETOROLAC 30 MG/ML 1ML VIAL ONE (22:02)
[2019-11-21] MEDS ORDERED: KETOROLAC 30 MG/ML 1ML VIAL As Ordered ONE (22:02)
[2019-11-21] MEDS ORDERED: fentaNYL 100 MCG/2 ML INJECTION (J3010) As Ordered ONE (22:41)
[2019-11-21] MEDS ORDERED: fentaNYL 100 MCG/2 ML INJECTION (J3010) ONE (22:41)
[2019-12-27 20:43] LABS: AMORPHOUS SEDIMENT SMALL (NEGATIVE); APPEARANCE, URINE HAZY (CLEAR); BACTERIA, URINE AUTO 1+ (NEGATIVE); BILIRUBIN, URINE AUTO NEGATIVE (NEGATIVE); BLOOD, URINE BLOOD NEGATIVE (NEGATIVE); COLOR, URINE YELLOW (YELLOW); GLUCOSE, URINE (UA) AUTO NEGATIVE (NEGATIVE); KETONE, URINE AUTO NEGATIVE (NEGATIVE); LEUKOCYTE ESTERASE, URINE AUTO NEGATIVE (NEGATIVE); MUCUS, URINE SMALL (NEGATIVE); NITRITE, URINE AUTO NEGATIVE (NEGATIVE); PROTEIN, URINE AUTO NEGATIVE (NEGATIVE); RBC, URINE AUTO 2 /HPF (0-3); SPECIFIC GRAVITY URINE AUTO 1.014 (1.002-1.035); SQUAMOUS EPITHELIAL CELL UR AU 1 /HPF (0-6); UROBILINOGEN, URINE AUTO 0.2 mg/dL (0.0-2.0); WBC, URINE AUTO 1 /HPF (0-3)
[2019-12-27 21:36] LABS: BASO % 0.2 % (0.0-1.0); EOS # 0.2 10^3/uL (0.0-0.5); HEMATOCRIT 40.4 % (36.0-47.0); HEMOGLOBIN 13.2 g/dl (12.0-15.5); LYMPH # 1.7 10^3/uL (1.5-5.0); LYMPH % 17.7 % (24.0-44.0); MEAN CORPUSCULAR HEMOGLOBIN 30.3 pg (27.0-33.0); MEAN CORPUSCULAR HGB CONC 32.7 g/dl (32.0-36.5); MEAN CORPUSCULAR VOLUME 92.9 fl (80.0-96.0); MONO # 0.7 10^3/uL (0.0-0.8); MONO % 6.8 % (0.0-5.0); NEUTROPHILS # 7.1 10^3/uL (1.5-8.5); NEUTROPHILS % 72.9 % (36.0-66.0); PLATELET COUNT, AUTOMATED 275 10^3/uL (150-450); RED BLOOD COUNT 4.35 10^6/uL (4.00-5.40); WHITE BLOOD COUNT 9.7 10^3/uL (4.0-10.0)
[2019-12-27 21:48] LABS: ERYTHROCYTE SEDIMENTATION RATE 21 mm/hr (0-20)
[2020-02-01 00:06] LABS: HCG, SERUM QUALITATIVE NEGATIVE (NEGATIVE)
[2020-02-01 00:13] LABS: ALBUMIN 3.4 GM/DL (3.2-5.2); ALT/SGPT 25 U/L (12-78); BILIRUBIN,DIRECT < 0.1 MG/DL (0.0-0.2); BILIRUBIN,TOTAL 0.2 MG/DL (0.2-1.0); BLOOD UREA NITROGEN 12 MG/DL (7-18); CALCIUM LEVEL 8.8 MG/DL (8.5-10.1); CARBON DIOXIDE LEVEL 22 MEQ/L (21-32); CHLORIDE LEVEL 111 MEQ/L (98-107); CREATININE FOR GFR 0.88 MG/DL (0.55-1.30); GLOMERULAR FILTRATION RATE > 60.0 (>60); GLUCOSE, FASTING 84 MG/DL (70-100); LIPASE 116 U/L (73-393); POTASSIUM SERUM 3.9 MEQ/L (3.5-5.1); SODIUM LEVEL 139 MEQ/L (136-145); TOTAL PROTEIN 6.8 GM/DL (6.4-8.2)
== END 2019-11-21 23:30 | disposition home or self-care (01) ==
LOC: M ED 18:43
DX: K52.9 Noninfective gastroenteritis and colitis, unspecified (principal); K50.90 Crohn's disease, unspecified, without complications; K76.9 Liver disease, unspecified; N80.9 Endometriosis, unspecified; K21.9 Gastro-esophageal reflux disease without esophagitis; F32.9 Major depressive disorder, single episode, unspecified; F41.9 Anxiety disorder, unspecified; Z79.899 Other long term (current) drug therapy; Z88.8 Allergy status to other drugs, medicaments and biological substances; Z91.041 Radiographic dye allergy status
CPT/HCPCS: 74177; 80048; 80076; 81001; 83690; 84703; 85025; 85652; 86140; 87040; 87086; 96361; 96374; 96375; 96376; 99283; J1642; J1885; J2270; J2405; J3010; Q9963; Q9967

== ENCOUNTER 2019-11-22 16:14 | Emergency (ER) | payer OTHER ==
[2019-11-22] MEDS ORDERED: KETOROLAC 60MG 2ML VIAL As Ordered ONE (16:48)
[2019-11-22] MEDS ORDERED: PROMETHAZINE INJ 25 MG/ML VIAL (J2550) ONE (16:51)
[2019-11-22] MEDS ORDERED: KETOROLAC 60MG 2ML VIAL ONE (16:51)
[2019-11-22] MEDS ORDERED: PROMETHAZINE INJ 25 MG/ML VIAL (J2550) As Ordered ONE (16:51)
[2019-11-22] MEDS ORDERED: traMADol 50 MG TAB (BULK 4 TAB ED) ONE (19:12)
[2019-11-22] MEDS ORDERED: traMADol 50 MG TAB (BULK 4 TAB ED) As Ordered ONE (19:12)
[2020-01-07 18:10] LABS: HEMATOCRIT 39.2 % (36.0-47.0); HEMOGLOBIN 12.8 g/dl (12.0-15.5); MEAN CORPUSCULAR HEMOGLOBIN 30.4 pg (27.0-33.0); MEAN CORPUSCULAR HGB CONC 32.7 g/dl (32.0-36.5); MEAN CORPUSCULAR VOLUME 93.1 fl (80.0-96.0); PLATELET COUNT, AUTOMATED 259 10^3/uL (150-450); RED BLOOD COUNT 4.21 10^6/uL (4.00-5.40); WHITE BLOOD COUNT 7.1 10^3/uL (4.0-10.0)
[2020-02-03 16:54] LABS: BLOOD UREA NITROGEN 8 MG/DL (7-18); CALCIUM LEVEL 8.4 MG/DL (8.5-10.1); CARBON DIOXIDE LEVEL 23 MEQ/L (21-32); CHLORIDE LEVEL 112 MEQ/L (98-107); CREATININE FOR GFR 0.78 MG/DL (0.55-1.30); GLOMERULAR FILTRATION RATE > 60.0 (>60); GLUCOSE, FASTING 93 MG/DL (70-100); POTASSIUM SERUM 4.2 MEQ/L (3.5-5.1); SODIUM LEVEL 140 MEQ/L (136-145)
== END 2019-11-22 19:20 | disposition home or self-care (01) ==
LOC: M ED 16:14
DX: R10.9 Unspecified abdominal pain (principal); K76.0 Fatty (change of) liver, not elsewhere classified; Z79.899 Other long term (current) drug therapy; Z88.6 Allergy status to analgesic agent
CPT/HCPCS: 80048; 85027; 96372; 99283; J1885

== ENCOUNTER 2019-12-04 21:39 | Emergency (ER) | payer MEDICAID ==
[~2019-12-04 21:39] MED LIST changes: +ISOVUE-370 76% 100ML VIAL ONE; +MORPHINE 4 MG/ML 1ML VIAL/SYRINGE (J2270) ONE; +ONDANSETRON 4MG/2ML VIAL ONE
[2019-12-04] MEDS ORDERED: methylPREDNISolone 125MG 2ML VIAL ONE (21:49)
[2020-01-18 12:31] LABS: BASO % 0.2 % (0.0-1.0); EOS # 0.2 10^3/uL (0.0-0.5); EOS % 1.5 % (0.0-3.0); HEMATOCRIT 39.9 % (36.0-47.0); HEMOGLOBIN 13.4 g/dl (12.0-15.5); LYMPH # 1.5 10^3/uL (1.5-5.0); LYMPH % 15.8 % (24.0-44.0); MEAN CORPUSCULAR HEMOGLOBIN 31.2 pg (27.0-33.0); MEAN CORPUSCULAR HGB CONC 33.6 g/dl (32.0-36.5); MONO # 0.7 10^3/uL (0.0-0.8); MONO % 7.1 % (0.0-5.0); NEUTROPHILS # 7.3 10^3/uL (1.5-8.5); PLATELET COUNT, AUTOMATED 321 10^3/uL (150-450); RED BLOOD COUNT 4.29 10^6/uL (4.00-5.40); WHITE BLOOD COUNT 9.8 10^3/uL (4.0-10.0)
[2020-01-18 14:00] LABS: APPEARANCE, URINE MANUAL HAZY (CLEAR); BILIRUBIN, URINE MANUAL NEGATIVE (NEGATIVE); BLOOD URINE MANUAL TRACE (NEGATIVE); COLOR, URINE MANUAL YELLOW (YELLOW); GLUCOSE, URINE (UA) MANUAL NEGATIVE (NEGATIVE); KETONE, URINE MANUAL NEGATIVE (NEGATIVE); LEUKOCYTE ESTERASE, URINE MAN NEGATIVE (NEGATIVE); NITRITE, URINE MANUAL NEGATIVE (NEGATIVE); PROTEIN, URINE MANUAL NEGATIVE (NEGATIVE); UROBILINOGEN, URINE MANUAL NORMAL (NORMAL)
[2020-01-18 14:02] LABS: BACTERIA, URINE LARGE AMOUNT; HYALINE CAST, URINE NONE SEEN /lpf (0-1); MUCUS, URINE SMALL AMOUNT (NEGATIVE); RBC, URINE 0-2 /hpf (0-3); SQUAMOUS EPITHELIAL CELL URINE SMALL AMOUNT /hpf (SMALL AMT); WBC, URINE NONE SEEN /hpf (0-3)
[2020-02-27 12:58] LABS: ALBUMIN 3.7 GM/DL (3.2-5.2); ALT/SGPT 30 U/L (12-78); BILIRUBIN,TOTAL 0.4 MG/DL (0.2-1.0); BLOOD UREA NITROGEN 8 MG/DL (7-18); CALCIUM LEVEL 9.3 MG/DL (8.5-10.1); CARBON DIOXIDE LEVEL 23 MEQ/L (21-32); CHLORIDE LEVEL 109 MEQ/L (98-107); GLOMERULAR FILTRATION RATE > 60.0 (>60); GLUCOSE, FASTING 84 MG/DL (70-100); LIPASE 87 U/L (73-393); POTASSIUM SERUM 4.7 MEQ/L (3.5-5.1); SODIUM LEVEL 139 MEQ/L (136-145); TOTAL PROTEIN 7.6 GM/DL (6.4-8.2)
== END 2019-12-04 22:10 | disposition home or self-care (01) ==
LOC: M ED 21:39
DX: K50.00 Crohn's disease of small intestine without complications (principal); K76.0 Fatty (change of) liver, not elsewhere classified; N80.9 Endometriosis, unspecified; Z87.891 Personal history of nicotine dependence; Z90.49 Acquired absence of other specified parts of digestive tract; Z79.899 Other long term (current) drug therapy; Z88.5 Allergy status to narcotic agent; Z88.8 Allergy status to other drugs, medicaments and biological substances
CPT/HCPCS: 74177; 80053; 81000; 83690; 85025; 87086; 96361; 96374; 96375; 99285; J2270; J2405; J2930; Q9967

== ENCOUNTER 2019-12-14 18:58 | Emergency (ER) | payer MEDICAID, OTHER ==
[~2019-12-14] VITALS: Ht 157.5 cm; Wt 86.1 kg
[~2019-12-14 18:58] MED LIST changes: -ISOVUE-370 76% 100ML VIAL ONE; -MORPHINE 4 MG/ML 1ML VIAL/SYRINGE (J2270) ONE; -ONDANSETRON 4MG/2ML VIAL ONE
[2019-12-14] MEDS ORDERED: predniSONE 20 MG TAB PO ONE (20:15)
[2019-12-14] MEDS ORDERED: ANEXSIA, NORCO 7.5MG/325MG TABLET(HYDROCODONE/APAP) PO ONE (20:15)
[2019-12-14 21:34] VITALS: BP 155/85
== END 2019-12-14 21:36 | disposition home or self-care (01) ==
LOC: M ED 18:58
DX: F43.0 Acute stress reaction (principal); F33.1 Major depressive disorder, recurrent, moderate; K21.9 Gastro-esophageal reflux disease without esophagitis; K50.90 Crohn's disease, unspecified, without complications; Z88.5 Allergy status to narcotic agent; Z91.041 Radiographic dye allergy status; Z79.899 Other long term (current) drug therapy

== ENCOUNTER 2019-12-30 13:27 | Emergency (ER) | payer MEDICAID, OTHER ==
[~2019-12-30] VITALS: Ht 157.5 cm; Wt 96.6 kg
--- NOTE | 2019-12-30 14:12 | REPVR ---
PROCEDURE INFORMATION: Exam: XR Left Wrist Exam date and time: 12/30/2019 1:35 PM Age: 34 years old Clinical indication: Pain; Wrist; Left; Additional info: Fall TECHNIQUE: Imaging protocol: XR Left wrist. Views: Frontal, lateral, and 2 oblique views. COMPARISON: No relevant prior studies available. FINDINGS: Bones/joints: Normal. Soft tissues: Normal. IMPRESSION: No acute findings. Electronically signed by: Talon Copeland On 12/30/2019 14:11:53 PM
[2019-12-30 14:55] VITALS: BP 109/79
== END 2019-12-30 14:57 | disposition home or self-care (01) ==
LOC: M ED 13:27
DX: S50.12XA Contusion of left forearm, initial encounter (principal); W01.198A Fall on same level from slipping, tripping and stumbling with subsequent striking against other object, initial encounter; Y92.019 Unspecified place in single-family (private) house as the place of occurrence of the external cause; Z88.8 Allergy status to other drugs, medicaments and biological substances; Z91.041 Radiographic dye allergy status; Z79.899 Other long term (current) drug therapy

== ENCOUNTER 2020-01-09 14:00 | Emergency (ER) | payer OTHER ==
[~2020-01-09] VITALS: Ht 157.5 cm; Wt 97.7 kg
[~2020-01-09 14:00] MED LIST changes: +SODIUM CHLORIDE 0.9% INJ 10 ML SYR IV SCH
[2020-01-09] MEDS ORDERED: KETOROLAC 30 MG/ML 1ML VIAL IV ONE (14:45)
[2020-01-09] MEDS ORDERED: NS 1,000 ML IV ONE (14:45)
[2020-01-09] MEDS ORDERED: ONDANSETRON 4MG/2ML VIAL IV ONE (14:45)
[2020-01-09 14:57] LABS: BASO % 0.2 % (0.0-1.0); EOS # 0.1 10^3/uL (0.0-0.5); EOS % 1.1 % (0.0-3.0); HEMATOCRIT 39.6 % (36.0-47.0); HEMOGLOBIN 12.9 g/dl (12.0-15.5); LYMPH # 1.2 10^3/uL (1.5-5.0); LYMPH % 14.6 % (24.0-44.0); MEAN CORPUSCULAR HEMOGLOBIN 29.9 pg (27.0-33.0); MEAN CORPUSCULAR HGB CONC 32.6 g/dl (32.0-36.5); MEAN CORPUSCULAR VOLUME 91.7 fl (80.0-96.0); MONO # 0.6 10^3/uL (0.0-0.8); MONO % 6.9 % (0.0-5.0); NEUTROPHILS # 6.3 10^3/uL (1.5-8.5); NEUTROPHILS % 76.6 % (36.0-66.0); PLATELET COUNT, AUTOMATED 286 10^3/uL (150-450); RED BLOOD COUNT 4.32 10^6/uL (4.00-5.40); WHITE BLOOD COUNT 8.2 10^3/uL (4.0-10.0)
[2020-01-09] MEDS ORDERED: diphenhydrAMINE 50MG/ML VIAL (J1200) IV ONE (15:00)
[2020-01-09] MEDS ORDERED: methylPREDNISolone 125MG 2ML VIAL IV ONE (15:00)
[2020-01-09 15:29] LABS: ALBUMIN 3.4 GM/DL (3.2-5.2); ALT/SGPT 30 U/L (12-78); BILIRUBIN,DIRECT < 0.1 MG/DL (0.0-0.2); BILIRUBIN,TOTAL 0.2 MG/DL (0.2-1.0); LIPASE 77 U/L (73-393); TOTAL PROTEIN 6.9 GM/DL (6.4-8.2)
[2020-01-09] MEDS ORDERED: MORPHINE 4 MG/ML 1ML VIAL/SYRINGE (J2270) IV ONE (16:15)
--- NOTE | 2020-01-09 16:18 | REPVR ---
PROCEDURE INFORMATION: Exam: XR Chest, 1 View Exam date and time: 01/09/2020 4:00 PM Age: 34 years old Clinical indication: Device placement; Other: Check for proper port placement; Additional info: Check port placement TECHNIQUE: Imaging protocol: XR of the chest Views: 1 view. COMPARISON: CR PORTABLE CHEST X-RAY 11/03/2019 8:21 PM FINDINGS: Tubes, catheters and devices: Termination of med port catheter in the right atrium. Lungs: Hypoinflation, without significant airspace disease. Pleural space: No significant pneumothorax or pleural effusion. Heart/Mediastinum: No cardiomegaly. Bones/joints: Unremarkable. IMPRESSION: Termination of med port catheter in the right atrium. Electronically signed by: Romero Loyd On 01/09/2020 16:18:41 PM
[2020-01-09] MEDS ORDERED: ISOVUE-370 76% 100ML VIAL As Ordered ONE (16:33)
[2020-01-09 16:54] VITALS: BP 133/83
--- NOTE | 2020-01-09 16:59 | REPVR ---
PROCEDURE INFORMATION: Exam: CT Abdomen And Pelvis With Contrast Exam date and time: 01/09/2020 4:36 PM Age: 34 years old Clinical indication: Abdominal pain; Localized; Right lower quadrant (rlq); Additional info: Rlq pain TECHNIQUE: Imaging protocol: Computed tomography of the abdomen and pelvis with intravenous contrast. Radiation optimization: All CT scans at this facility use at least one of these dose optimization techniques: automated exposure control; mA and/or kV adjustment per patient size (includes targeted exams where dose is matched to clinical indication); or iterative reconstruction. Contrast material: ISOVUE 370; Contrast volume: 100 ml; Contrast route: INTRAVENOUS (IV); COMPARISON: CT ABD/PEL W/IV ORAL CONTRAS 11/21/2019 9:43 PM FINDINGS: Tubes, catheters and devices: Termination of central venous catheter at the cavoatrial junction. Lungs: Interstitial prominence, chronic granulomatous disease, and mild dependent airspace disease. Liver: Diffuse fatty infiltration of the liver. Gallbladder and bile ducts: Status post cholecystectomy. Pancreas: No pancreatic mass or ductal dilatation. Spleen: Enlarged spleen measuring 13.3 cm in length. Adrenals: Unremarkable adrenals. Kidneys and ureters: Normal renal morphology. Mild right hydronephrosis without associated urolithiasis. Stomach and bowel: Mild wall thickening in the nondistended stomach. Mild jejunal dilatation at surgical anastomotic site, along with mild jejunal wall thickening. Copious stool, in a pattern of constipation with multiple radiopaque tablets in the colon. Appendix: No acute appendicitis. Intraperitoneal space: No significant free fluid. Vasculature: Normal caliber of the abdominal aorta Lymph nodes: Subcentimeter lymph nodes. Bladder: Bladder dilatation. Reproductive: Status post hysterectomy. Bones/joints: Punctate bone islands. Stable erosive change involving the L4-L5 vertebral endplates. Mild disc bulging. Soft tissues: Postoperative scarring in the anterior abdominal wall midline, along with small umbilical hernia. IMPRESSION: 1. Mild right hydronephrosis without associated urolithiasis. 2. No acute inflammatory process in the abdomen or pelvis. 3. Additional findings as described above. Electronically signed by: Romero Loyd On 01/09/2020 16:59:28 PM
--- NOTE | 2020-01-10 08:48 | ED PDOC ---
Post-Departure Follow-Up radiology report faxed to Priscilla Bhat MD Jan 10, 2020 08:48
== END 2020-01-09 17:47 | disposition home or self-care (01) ==
LOC: M ED 14:00
DX: N13.30 Unspecified hydronephrosis (principal); R51 Headache; K50.90 Crohn's disease, unspecified, without complications; N80.9 Endometriosis, unspecified; M54.5 Low back pain; F43.10 Post-traumatic stress disorder, unspecified; F41.9 Anxiety disorder, unspecified; F33.9 Major depressive disorder, recurrent, unspecified; F17.210 Nicotine dependence, cigarettes, uncomplicated; Z88.8 Allergy status to other drugs, medicaments and biological substances; Z91.048 Other nonmedicinal substance allergy status; Z79.899 Other long term (current) drug therapy
CPT/HCPCS: 71045; 74177; 80047; 80076; 81001; 83690; 84702; 85025; 96374; 96375; 99284; J1200; J1642; J1885; J2270; J2405; J2930; Q9967

== ENCOUNTER 2020-01-12 17:24 | Inpatient (IN) | payer MEDICAID, OTHER ==
[~2020-01-12] VITALS: Ht 157.5 cm; Wt 98.0 kg
[~2020-01-12 17:24] MED LIST changes: -SODIUM CHLORIDE 0.9% INJ 10 ML SYR IV SCH
[2020-01-12] MEDS ORDERED: AMIT100TA (17:35)
[2020-01-12] MEDS ORDERED: CEPH500C (17:35)
[2020-01-12 18:17] LABS: HEMATOCRIT 42.8 % (36.0-47.0); HEMOGLOBIN 13.9 g/dl (12.0-15.5); MEAN CORPUSCULAR HEMOGLOBIN 29.9 pg (27.0-33.0); MEAN CORPUSCULAR HGB CONC 32.5 g/dl (32.0-36.5); PLATELET COUNT, AUTOMATED 343 10^3/uL (150-450); RED BLOOD COUNT 4.65 10^6/uL (4.00-5.40)
[2020-01-12 18:37] LABS: AMPHETAMINES LEVEL URINE NEGATIVE (NEGATIVE); BARBITURATES URINE NEGATIVE (NEGATIVE); BENZODIAZEPINES URINE NEGATIVE (NEGATIVE); CANNABINOIDS URINE NEGATIVE (NEGATIVE); COCAINE METABOLITE URINE NEGATIVE (NEGATIVE); METHADONE URINE NEGATIVE (NEGATIVE); OPIATES URINE POSITIVE (NEGATIVE); PHENCYCLIDINE URINE NEGATIVE (NEGATIVE)
[2020-01-12 18:40] LABS: HCG, SERUM QUALITATIVE NEGATIVE (NEGATIVE)
[2020-01-12 18:52] LABS: ACETAMINOPHEN LEVEL < 2.0 UG/ML (10.0-30.0); ALBUMIN 3.6 GM/DL (3.2-5.2); ALT/SGPT 33 U/L (12-78); BILIRUBIN,DIRECT 0.1 MG/DL (0.0-0.2); BILIRUBIN,TOTAL 0.1 MG/DL (0.2-1.0); BLOOD UREA NITROGEN 9 MG/DL (7-18); CALCIUM LEVEL 9.3 MG/DL (8.5-10.1); CARBON DIOXIDE LEVEL 22 MEQ/L (21-32); CHLORIDE LEVEL 107 MEQ/L (98-107); CREATININE FOR GFR 0.79 MG/DL (0.55-1.30); ETHYL ALCOHOL (ETHANOL) < 0.003 % (0.000-0.010); GLOMERULAR FILTRATION RATE > 60.0 (>60); GLUCOSE, FASTING 81 MG/DL (70-100); SALICYLATE LEVEL 1.7 MG/DL (5.0-30.0); SODIUM LEVEL 136 MEQ/L (136-145); TOTAL PROTEIN 7.4 GM/DL (6.4-8.2)
[2020-01-12] MEDS ORDERED: LORazepam 2 MG TAB PO STA (18:56)
[2020-01-12] MEDS ORDERED: MERC50TA2 PO (22:08)
[2020-01-12] MEDS ORDERED: CEPH500C PO (22:08)
[2020-01-12] MEDS ORDERED: BUSP15TA47 PO (22:08)
[2020-01-12] MEDS ORDERED: CLON0.5T2 PO (22:08)
[2020-01-12] MEDS ORDERED: AMIT100TA PO (22:08)
[2020-01-12] MEDS ORDERED: ONDA4TAB6 PO (22:08)
[2020-01-12] MEDS ORDERED: OMEP-221 PO (22:08)
[2020-01-12] MEDS ORDERED: DICY1CAP8 PO (22:08)
[2020-01-12] MEDS ORDERED: ENTY1INJ IV (22:08)
[2020-01-12] MEDS ORDERED: FLUO20CA22 PO (22:08)
--- NOTE | 2020-01-13 04:16 | ECGEPIP ---
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
[2020-01-13] MEDS ORDERED: ACETAMINOPHEN TAB 650MG DOSE (2X325MG) PO ONE (06:45)
[2020-01-13] MEDS ORDERED: DICYCLOMINE 10 MG CAP PO ONE ×2 (08:00)
[2020-01-13] MEDS ORDERED: busPIRone 5 MG TAB PO SCH (09:00)
[2020-01-13] MEDS ORDERED: LORazepam 2 MG/ML VIAL IV STA (10:47)
[2020-01-13] MEDS ORDERED: ISOVUE-370 76% 100ML VIAL As Ordered ONE (11:19)
[2020-01-13 11:34] LABS: HEMATOCRIT 42.2 % (36.0-47.0); HEMOGLOBIN 13.8 g/dl (12.0-15.5); MEAN CORPUSCULAR HEMOGLOBIN 29.6 pg (27.0-33.0); MEAN CORPUSCULAR HGB CONC 32.7 g/dl (32.0-36.5); MEAN CORPUSCULAR VOLUME 90.4 fl (80.0-96.0); PLATELET COUNT, AUTOMATED 286 10^3/uL (150-450); RED BLOOD COUNT 4.67 10^6/uL (4.00-5.40); WHITE BLOOD COUNT 9.1 10^3/uL (4.0-10.0)
[2020-01-13] MEDS ORDERED: LORazepam 2 MG/ML VIAL As Ordered ONE (11:37)
[2020-01-13 11:56] LABS: ALBUMIN 3.4 GM/DL (3.2-5.2); ALT/SGPT 29 U/L (12-78); BILIRUBIN,TOTAL 0.4 MG/DL (0.2-1.0); BLOOD UREA NITROGEN 11 MG/DL (7-18); CALCIUM LEVEL 8.9 MG/DL (8.5-10.1); CARBON DIOXIDE LEVEL 26 MEQ/L (21-32); CHLORIDE LEVEL 105 MEQ/L (98-107); CREATININE FOR GFR 0.75 MG/DL (0.55-1.30); GLOMERULAR FILTRATION RATE > 60.0 (>60); GLUCOSE, FASTING 88 MG/DL (70-100); LIPASE 95 U/L (73-393); POTASSIUM SERUM 4.1 MEQ/L (3.5-5.1); SODIUM LEVEL 137 MEQ/L (136-145)
--- NOTE | 2020-01-13 12:13 | REPVR ---
PROCEDURE INFORMATION: Exam: CT Abdomen And Pelvis With Contrast Exam date and time: 01/13/2020 11:32 AM Age: 34 years old Clinical indication: Abdominal pain; Generalized; Additional info: Crohns/abd pain TECHNIQUE: Imaging protocol: Computed tomography of the abdomen and pelvis with intravenous contrast. Radiation optimization: All CT scans at this facility use at least one of these dose optimization techniques: automated exposure control; mA and/or kV adjustment per patient size (includes targeted exams where dose is matched to clinical indication); or iterative reconstruction. Contrast material: ISOVUE 370; Contrast volume: 100 ml; Contrast route: INTRAVENOUS (IV); COMPARISON: CT ABD/PEL W/IV CONTRAST ONLY 01/09/2020 4:31 PM FINDINGS: Liver: Diffuse hepatic steatosis. Gallbladder and bile ducts: There has been a cholecystectomy. Pancreas: Normal. No ductal dilation. Spleen: Normal. No splenomegaly. Adrenals: Normal. No mass. Kidneys and ureters: Normal. No hydronephrosis. Stomach and bowel: The rectum is nondistended, somewhat limiting evaluation, but there appears to be mild circumferential wall thickening of the entire rectum. The sigmoid colon is moderately distended. Apparent mild diffuse circumferential wall thickening of the ascending colon and the majority of the transverse colon. Assessment is somewhat limited, as these portions of the colon are nondistended. No significant small bowel wall thickening is appreciated. There is suture material associated with the small bowel. No bowel obstruction. Appendix: No evidence of appendicitis. Intraperitoneal space: Unremarkable. No free air. No significant fluid collection. Vasculature: Unremarkable. No abdominal aortic aneurysm. Lymph nodes: Unremarkable. No enlarged lymph nodes. Urinary bladder: Unremarkable as visualized. Reproductive: The patient appears to be status post hysterectomy. Bones/joints: Unremarkable. No acute fracture. Soft tissues: Postsurgical change of the ventral abdominal wall. IMPRESSION: 1. Apparent mild regional colitis and proctitis. 2. Diffuse hepatic steatosis. Electronically signed by: Leah Candelaria On 01/13/2020 12:13:44 PM
[2020-01-13] MEDS ORDERED: ONDANSETRON 4 MG ORAL DISINTEGRATING TAB PO PRN (17:00)
[2020-01-13] MEDS ORDERED: traZODone 50 MG TAB PO PRN (17:00)
[2020-01-13] MEDS ORDERED: IBUPROFEN 400 MG TAB PO PRN (17:00)
[2020-01-13] MEDS ORDERED: ENTER DRUG NAME HERE (PATIENT'S OWN MED) IV SCH (17:00)
[2020-01-13] MEDS ORDERED: MAALOX 30 ML SUSP *UDC PO PRN (17:00)
[2020-01-13] MEDS ORDERED: MOM 30ML SUSPENSION UDC PO PRN (17:00)
[2020-01-13 19:16] VITALS: BP 144/88
[2020-01-13] MEDS: OMEPRAZOLE 20 MG CAP PO SCH (20:17)
[2020-01-13] MEDS: AMITRIPTYLINE 50 MG TAB PO SCH (20:17)
[2020-01-13] MEDS: busPIRone 5 MG TAB PO SCH (20:17)
[2020-01-13] MEDS: FLUoxetine 20 MG CAP PO SCH (20:18)
[2020-01-13] MEDS: clonazePAM 0.5 MG TAB PO SCH (20:18)
[2020-01-13] MEDS: MERCAPTOPURINE PO SCH (23:16)
[2020-01-14] MEDS: UNRESOLVED PATIENT OWN MED ORDER XX SCH (00:01)
[2020-01-14] MEDS: DICYCLOMINE 10 MG CAP PO PRN ×2 (02:19→12:01)
[2020-01-14 06:38] VITALS: BP 133/77
[2020-01-14] MEDS: busPIRone 5 MG TAB PO SCH ×3 (09:14→20:06)
[2020-01-14] MEDS: LOPERAMIDE 2 MG CAPLET PO PRN ×3 (10:16→15:19)
[2020-01-14 10:27] LABS: C REACTIVE PROTEIN QUANTITATIV 1.29 MG/DL (0.00-0.30)
--- NOTE | 2020-01-14 16:22 | HPEPDOC ---
[facility] Medical History & Physical Date of Admission Jan 14, 2020 Date of Service: Jan 14, 2020 History and Physical Chief complaint: Presented to the hospital with complaints of suicidal ideation; was admitted to the inpatient mental health unit Service was consulted for medical screening evaluation History of present illness: Patient is a 34-year-old female with a PMHx of Crohns disease (on immunosuppressive therapy; Follows with Gastroenterology in [place]), Depression / Anxiety, GERD who was presented to the emergency room after reporting suicidal ideation. Patient was admitted to the inpatient mental health unit under the care of psychiatry. Hospitalist service was consulted for medical screening evaluation. While in the emergency room, patient had reported abdominal pain and diarrhea. She had imaging completed via CT of her abdomen and pelvis that had revealed mild regional colitis and proctitis. Lab work completed ER did not reveal any lactic acidosis or electrolyte abnormalites, and leukocytosis had resolved within 24 hours. Patient has a GI panel was completed emergency room that was negative for any infectious etiology. Patient had remained hemodynamically stable and afebrile and was transitioned to the inpatient mental health unit. On evaluation this morning she had reported some nausea, abdominal discomfort and diarrhea. Patient denies any vomiting episodes. Reports that her abdominal pain is occurring in the center of her abdomen it as 8/10 without any alleviating or aggravating factors. . She is reported a single episode of diarrhea this morning. She reports that she gets Crohns disease exacerbation. 2-3 times a year. She follows with a development coach in [place] who has tried 2 different therapies. Currently patient reports that she takes Entyvio. Patient denies any chest pain, shortness of breath, palpitations, cough, any recent fevers or chills. Reports her appetite has been poor but denies any changes in her weight. 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 [employer] Review of Systems: 10 point review of systems complete, all negative otherwise stated in HPI Physical exam: - Vitals: BP [133/77], HR [91], RR [12], Sat [98%RA], Temp [97.0] - General: Lying in bed, Reports some abdominal discomfort, AAOx3 - HEENT: NC, AT, PERRLA - CVS: RRR, +S1S2 - Lungs: Fair air entry bilaterally, No appreciable wheezing / rales / rhonchi - Abdomen: Soft, Non-distended, mild epigastric tenderness - Extremities: No lower extremity edema, No calf tenderness - Neuro: No focal motor or sensory deficit - Skin: No visible rashes Imaging: CT abdomen / pelvis (01/12):1. Apparent mild regional colitis and proctitis. 2. Diffuse hepatic steatosis. Assessment and Plan: Abdominal pain - possibly 2/2 Crohns disease, less likely 2/2 flare - Patient reports that she is expressing some abdominal discomfort - She is on immunosuppressive therapy as an outpatient and follows with Gastroenterology in [place] - Physical reveals some epigastric tenderness - Remains hemodynamically stable and afebrile - No leukocytosis or lactic acidosis; CRP 1.29 - GI panel acquired 01/12: No signs of infection - CT imaging noted above - Will continue to follow lab for in the next 24 hours - Will continue with home immunosuppressive therapy; Mercaptopurine - c/w Zofran and Bentyl from outpatient setting - Will start Imodium for diarrhea as needed - Will need outpatient follow up with Gastroenterology for Entyvio infusions Suicidal ideation - Hx of Depression / Anxiety - Currently admitted to the inpatient mental health unit under the care of psychiatry - Currently being managed by psychiatry GERD - c/w PPI DVT prophylaxis - Will c/w early ambulation Female customer solutions coordinator was present for the duration of this history and physical examination Thank you for this consultation; hospital service will sign off, please reconsult as needed Vital Signs Vital Signs Date Time Temp Pulse Resp B/P (MAP) Pulse Ox O2 Delivery O2 Flow Rate FiO2 01/14/20 06:38 97.0 91 12 133/77 (95) Room Air 01/13/20 19:16 98 Laboratory Data Microbiology Microbiology 01/13/20 Gastrointestinal Tract Panel (PCR) - Final, Complete Home Medications Scheduled Amitriptyline HCl (Amitriptyline HCl) 100 Mg Tablet, 100 MG PO QHS Buspirone HCl (Buspirone HCl) 15 Mg Tablet, 15 MG PO TID Clonazepam (Clonazepam) 0.5 Mg Tablet, 0.5 MG PO QHS Fluoxetine Hcl (Fluoxetine HCl) 20 Mg Capsule, 60 MG PO QHS Mercaptopurine (Mercaptopurine) 50 Mg Tablet, 50 MG PO QHS Omeprazole (Omeprazole) 40 Mg Capsule.dr, 40 MG PO QHS Vedolizumab (Entyvio) 300 Mg Vial, 300 MG IV ASDIRECTED EVERY 8 WEEKS: NEXT DOSE WAS TO BE GIVEN ON Saturday01/14/2020 Scheduled PRN Dicyclomine HCl (Dicyclomine HCl) 10 Mg Capsule, 40 MG PO QID PRN for CRAMPS Ondansetron (Ondansetron Odt) 4 Mg Tab.rapdis, 4 MG PO Q8H PRN for NAUSEA Allergies Coded Allergies: infliximab (Verified Allergy, Severe, anaphylaxis, 12/14/19) Contrast Media (Verified Allergy, Intermediate, "mri injection dye" hives, 12/14/19) A-FIB/CHADSVASC A-FIB History Current/History of A-Fib/PAF?: No CHANTELLE ABERNATHY MD Jan 14, 2020 16:22
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
[2020-01-14 18:35] VITALS: BP 146/86
[2020-01-14] MEDS: AMITRIPTYLINE 50 MG TAB PO SCH (20:06)
[2020-01-14] MEDS: OMEPRAZOLE 20 MG CAP PO SCH (20:06)
[2020-01-14] MEDS: FLUoxetine 20 MG CAP PO SCH (20:06)
[2020-01-14] MEDS: clonazePAM 0.5 MG TAB PO SCH (20:06)
[2020-01-14] MEDS: MERCAPTOPURINE PO SCH (20:07)
[2020-01-14] MEDS: LORazepam 1 MG TAB PO PRN (21:57)
[2020-01-15] MEDS: UNRESOLVED PATIENT OWN MED ORDER XX SCH (00:01)
[2020-01-15 06:46] VITALS: BP 122/67
[2020-01-15 07:22] LABS: HEMOGLOBIN 13.4 g/dl (12.0-15.5); MEAN CORPUSCULAR HEMOGLOBIN 29.6 pg (27.0-33.0); MEAN CORPUSCULAR HGB CONC 32.7 g/dl (32.0-36.5); MEAN CORPUSCULAR VOLUME 90.7 fl (80.0-96.0); PLATELET COUNT, AUTOMATED 281 10^3/uL (150-450); RED BLOOD COUNT 4.52 10^6/uL (4.00-5.40); WHITE BLOOD COUNT 9.1 10^3/uL (4.0-10.0)
[2020-01-15 07:44] LABS: BLOOD UREA NITROGEN 10 MG/DL (7-18); CARBON DIOXIDE LEVEL 25 MEQ/L (21-32); CHLORIDE LEVEL 107 MEQ/L (98-107); CREATININE FOR GFR 0.82 MG/DL (0.55-1.30); GLOMERULAR FILTRATION RATE > 60.0 (>60); GLUCOSE, FASTING 95 MG/DL (70-100); MAGNESIUM LEVEL 2.2 MG/DL (1.8-2.4); POTASSIUM SERUM 3.7 MEQ/L (3.5-5.1); SODIUM LEVEL 136 MEQ/L (136-145)
[2020-01-15] MEDS: busPIRone 5 MG TAB PO SCH (08:12)
[2020-01-15] MEDS: LORazepam 1 MG TAB PO PRN (08:12)
--- NOTE | 2020-01-15 11:51 | MHDSPDOC ---
[facility] Discharge Summary Discharge Summary DATE OF ADMISSION: Jan 13, 2020 at 16:48 DATE OF DISCHARGE: January 15, 2020 11:50 DISCHARGE DIAGNOSES: Major Depressive Disorder, Single Episode Anxiety Disorder REASON FOR ADMISSION: Patient was brought in by her for suicidal thoughts. HISTORY OF PRESENT ILLNESS: Patient is a 34 -year-old , Employed, Domiciled, , female, who was strongly urged to be seen in the Emergency Room after her first therapist visit on 01/12/20. At her first appointment, she reports that she had "unleashed all of her emotions from the past few months" 1) recently lost his job after posting something to social network. He was fired, lost his health insurance and group home, and now struggling fi nancially. 2) A month ago, she and her learned that they had both been cheating on each other. She reports that he appeared to be living a double life with the other woman, who now may or may not be . She states that she cheated with her 's brother. 3) She made vague suicidal statement while at the therapist's appointment. States that she was hurt by her , feels that the possible is causing even more stress 4) The stress is increasing her Crohn's symptoms. CONSULTANTS INVOLVED: See Medical H + P by Medical MD TREATMENT AND PROGRESS ON THE UNIT : Patient was afforded the following treatment modalities 1) Individual therapy, 2) group therapy, 3) medication management, 4) Milieu Therapy 5) Safe environment HOSPITAL COURSE: Patient was started on her home medications, she had reported having abdominal pain and initially was hoping for pain medication but stated that she would have less pain if she was less anxious. Patient's Crohn's was acting up during these increased stressors DISCHARGE ASSESSMENT: Patient observed to be stable for discharged today. Her felt that she was safe and was providing transportation to home. Patient stated that she is still very upset about whether or not her 's infidelity may have MENTAL STATUS EXAMINATION ON DISCHARGE: Patient is a 34-year old , Employed, Domiciled, female, who is admitted to [facility] on a 9.39 after she made vague suicidal statements to her first therapy appointment at [facility]. She appears her stated age, dressed in hospital scrubs and t-shirt. Her hygiene and grooming is well kempt, her eye contact is good (she has nystagmus bilaterally). She is not observed with psychomotor agitation or retardation. Speech is fluid and conversant Language skills are good. Thought processes including: reality based, linear and goal oriented. Thought content: mild depression and anxiety, but is moderately ruminative Abstract reasoning, and computation: good Description of associations: None Description of abnormal or psychotic thoughts: None observed, and patient denies Judgment: good Insight: good Orientation to person, place, time and situation Recent and remote memory: intact Attention span and concentration: very good Language: expansive Fund of knowledge: . Mood: Mildly depressive Affect: Mildly anxious MEDICATIONS ON DISCHARGE: see Medication Reconciliation PLAN/FOLLOWUP ARRANGEMENTS: Patient is following up with her therapist at [facility] The amount of time spent in the coordination of care for this patient was approximately 20 minutes. Vital Signs/I&Os Vital Signs Date Time Temp Pulse Resp B/P (MAP) Pulse Ox O2 Delivery O2 Flow Rate FiO2 01/15/20 06:46 98.0 75 12 122/67 (85) Room Air 01/13/20 19:16 98 Laboratory Data Labs 24H Laboratory Tests 2 01/15/20 07:12: Nucleated Red Blood Cells % (auto) 0.0, Anion Gap 4L, Glomerular Filtration Rate > 60.0, Calcium Level 9.0, Magnesium Level 2.2, C-Reactive Protein, Quantitative 1.30H CBC/BMP Laboratory Tests 01/15/20 07:12 Microbiology Microbiology 01/13/20 Gastrointestinal Tract Panel (PCR) - Final, Complete Medications Scheduled Amitriptyline HCl (Amitriptyline HCl) 100 Mg Tablet, 100 MG PO QHS, (Reported) Buspirone HCl (Buspirone HCl) 15 Mg Tablet, 15 MG PO TID, (Reported) Clonazepam (Clonazepam) 0.5 Mg Tablet, 0.5 MG PO QHS, (Reported) Fluoxetine Hcl (Fluoxetine HCl) 20 Mg Capsule, 60 MG PO QHS, (Reported) Mercaptopurine (Mercaptopurine) 50 Mg Tablet, 50 MG PO QHS, (Reported) Omeprazole (Omeprazole) 40 Mg Capsule.dr, 40 MG PO QHS, (Reported) Vedolizumab (Entyvio) 300 Mg Vial, 300 MG IV ASDIRECTED, (Reported) EVERY 8 WEEKS: NEXT DOSE WAS TO BE GIVEN ON Saturday01/14/2020 Scheduled PRN Dicyclomine HCl (Dicyclomine HCl) 10 Mg Capsule, 40 MG PO QID PRN for CRAMPS, (Reported) Ondansetron (Ondansetron Odt) 4 Mg Tab.rapdis, 4 MG PO Q8H PRN for NAUSEA, (Reported) Allergies Coded Allergies: infliximab (Verified Allergy, Severe, anaphylaxis, 12/14/19) Contrast Media (Verified Allergy, Intermediate, "mri injection dye" hives, 12/14/19) AMITA ENRIQUE NP Jan 15, 2020 11:51
== END 2020-01-15 11:15 | disposition home or self-care (01) | DRG 754 ==
LOC: M ED 17:24 → M ED INP 01-13 16:48 → M PSY 01-13 18:40
PROVIDERS: ADMIT Psychiatry & Neurology Psychiatry; ATTEND Psychiatry & Neurology Psychiatry
DX: F32.9 Major depressive disorder, single episode, unspecified (principal); K50.90 Crohn's disease, unspecified, without complications; R45.851 Suicidal ideations; F41.9 Anxiety disorder, unspecified; Z79.899 Other long term (current) drug therapy; Z88.8 Allergy status to other drugs, medicaments and biological substances; Z91.010 Allergy to peanuts; Z91.040 Latex allergy status

== ENCOUNTER 2020-01-19 15:50 | Outpatient (CLI) | payer OTHER ==
[~2020-01-19] VITALS: Ht 157.5 cm; Wt 85.7 kg
[~2020-01-19 15:50] MED LIST changes: +ACETAMINOPHEN TAB 650MG DOSE (2X325MG) PO ONE; +AMIT100TA; +AMIT100TA PO; +BUSP15TA47 PO; +CEPH500C; +CEPH500C PO; +CLON0.5T2 PO; +DICY1CAP8 PO; +ENTY1INJ IV; +FLUO20CA22 PO; +SODIUM CHLORIDE 0.9% INJ 10 ML SYR IV SCH; +VEDOLIZUMAB 300 MG in NS 250 ML IV ONE; +diphenhydrAMINE 25MG CAP PO ONE
[2020-01-19] MEDS ORDERED: VEDOLIZUMAB 300 MG in NS 250 ML IV ONE (16:00)
[2020-01-19] MEDS ORDERED: diphenhydrAMINE 25MG CAP PO ONE (16:00)
[2020-01-19] MEDS ORDERED: ACETAMINOPHEN TAB 650MG DOSE (2X325MG) PO ONE (16:00)
[2020-01-19 16:15] VITALS: BP 142/101
[2020-01-19 16:16] VITALS: BP 142/101
[2020-01-19 17:03] VITALS: BP 142/96
[2020-01-19] MEDS ORDERED: SODIUM CHLORIDE 0.9% INJ 10 ML SYR IV PRN (17:30)
== END 2020-01-19 17:05 | disposition home or self-care (01) ==
LOC: M INFU 15:50
PROVIDERS: ATTEND Internal Medicine Gastroenterology
DX: K50.80 Crohn's disease of both small and large intestine without complications (principal)
CPT/HCPCS: 96365; J3380

== ENCOUNTER 2020-02-11 20:35 | Emergency (ER) | payer OTHER ==
[~2020-02-11] VITALS: Ht 157.5 cm; Wt 99.4 kg
[~2020-02-11 20:35] MED LIST changes: -ACETAMINOPHEN TAB 650MG DOSE (2X325MG) PO ONE; -SODIUM CHLORIDE 0.9% INJ 10 ML SYR IV SCH; -VEDOLIZUMAB 300 MG in NS 250 ML IV ONE; -diphenhydrAMINE 25MG CAP PO ONE
[2020-02-11] MEDS ORDERED: [UNRECOGNIZED DRUG - OTHER] PO (20:42)
[2020-02-11] MEDS ORDERED: TRAZ-252 PO (20:45)
[2020-02-11] MEDS ORDERED: PROP10TA56 PO (20:45)
[2020-02-11] MEDS ORDERED: NS 1,000 ML IV ONE (22:00)
[2020-02-11] MEDS ORDERED: MORPHINE 4 MG/ML 1ML VIAL/SYRINGE (J2270) IV ONE (22:00)
[2020-02-11] MEDS ORDERED: ONDANSETRON 4MG/2ML VIAL IV ONE (22:00)
[2020-02-11 22:32] LABS: BASO % 0.4 % (0.0-1.0); EOS # 0.2 10^3/uL (0.0-0.5); HEMATOCRIT 37.7 % (36.0-47.0); HEMOGLOBIN 12.1 g/dl (12.0-15.5); LYMPH # 1.3 10^3/uL (1.5-5.0); LYMPH % 14.2 % (24.0-44.0); MEAN CORPUSCULAR HEMOGLOBIN 28.4 pg (27.0-33.0); MEAN CORPUSCULAR HGB CONC 32.1 g/dl (32.0-36.5); MEAN CORPUSCULAR VOLUME 88.5 fl (80.0-96.0); MONO # 0.6 10^3/uL (0.0-0.8); MONO % 6.7 % (0.0-5.0); NEUTROPHILS # 7.1 10^3/uL (1.5-8.5); NEUTROPHILS % 76.3 % (36.0-66.0); PLATELET COUNT, AUTOMATED 341 10^3/uL (150-450); RED BLOOD COUNT 4.26 10^6/uL (4.00-5.40); WHITE BLOOD COUNT 9.3 10^3/uL (4.0-10.0)
[2020-02-11] MEDS ORDERED: ISOVUE-370 76% 100ML VIAL As Ordered ONE (22:36)
--- NOTE | 2020-02-11 23:27 | REPVR ---
PROCEDURE INFORMATION: Exam: CT Abdomen And Pelvis With Contrast Exam date and time: 02/11/2020 10:45 PM Age: 34 years old Clinical indication: Abdominal pain; Generalized; Additional info: Gen abd pain HX of crohns TECHNIQUE: Imaging protocol: Computed tomography of the abdomen and pelvis with intravenous contrast. Radiation optimization: All CT scans at this facility use at least one of these dose optimization techniques: automated exposure control; mA and/or kV adjustment per patient size (includes targeted exams where dose is matched to clinical indication); or iterative reconstruction. Contrast material: ISOVUE 370; Contrast volume: 100 ml; Contrast route: INTRAVENOUS (IV); COMPARISON: CT ABD/PEL W/IV CONTRAST ONLY 01/13/2020 11:26 AM FINDINGS: Lungs: Calcified granuloma in the right lower lobe. Cluster of nodules in the right lower lobe measuring up to 5 mm. Liver: Fatty infiltration of the liver. Gallbladder and bile ducts: Status post cholecystectomy. No biliary ductal dilatation. Pancreas: Normal. No ductal dilation. Spleen: Normal. No splenomegaly. Adrenals: Normal. No mass. Kidneys and ureters: Normal. No hydronephrosis. Stomach and bowel: Severe stool in the colon. No abnormal bowel dilatation. Mild segmental thickening of the mid right colon. Negative for colonic diverticulitis. Status post partial small bowel resection. Appendix: The appendix is not seen. However, there is no evidence of appendicitis. Intraperitoneal space: Unremarkable. No free air. No significant fluid collection. Vasculature: Unremarkable. No abdominal aortic aneurysm. Lymph nodes: Unremarkable. No enlarged lymph nodes. Urinary bladder: Unremarkable as visualized. Reproductive: Status post hysterectomy. Bones/joints: Mild degenerative spine. No acute fracture. Soft tissues: There is dependent subcutaneous edema. IMPRESSION: 1. Mild segmental thickening of the mid right colon. Suspect mild colitis. 2. Status post partial small bowel resection. 3. Fatty infiltration of the liver. 4. Cluster of nodules in the right lower lobe. Suspect infection. For patients at low risk (minimal or absent history of smoking and of other known risk factors), no routine follow-up is indicated. For patients at high risk (history of smoking or of other known risk factors), consider optional CT Chest at 12 months. (Reference: Mohit) REFERENCES: Mohit Cutler et al. Guidelines for Management of Incidental Pulmonary Nodules Detected on CT Images: From the Fleischner Society 2017. Radiology. 2017;284(1):228-243. Electronically signed by: Shreyas Malhotra On 02/11/2020 23:27:33 PM
[2020-02-11 23:32] LABS: ALBUMIN 3.1 GM/DL (3.2-5.2); ALT/SGPT 40 U/L (12-78); BILIRUBIN,DIRECT < 0.1 MG/DL (0.0-0.2); BILIRUBIN,TOTAL 0.2 MG/DL (0.2-1.0); LIPASE 150 U/L (73-393); TOTAL PROTEIN 6.8 GM/DL (6.4-8.2)
[2020-02-12] MEDS ORDERED: MEDR4PAK PO (00:54)
--- NOTE | 2020-02-12 01:32 | REPVR ---
PROCEDURE INFORMATION: Exam: XR Chest, 2 Views Exam date and time: 02/11/2020 11:35 PM Age: 34 years old Clinical indication: Other: R/O pneumonia; Additional info: Cough, R/O pneumonia TECHNIQUE: Imaging protocol: XR of the chest Views: 2 views. COMPARISON: CR Chest, 1 view 01/09/2020 3:54 PM FINDINGS: Tubes, catheters and devices: There is a Port-A-Cath on the right with the tip at the SVC in satisfactory position. Lungs: Unremarkable. No consolidation. Pleural space: Unremarkable. No pleural effusion. No pneumothorax. Heart/Mediastinum: Unremarkable. No cardiomegaly. Bones/joints: Unremarkable. IMPRESSION: No acute infiltrate. Electronically signed by: Shreyas Malhotra On 02/12/2020 01:32:16 AM
[2020-02-12 01:39] VITALS: BP 132/89
[2020-02-12] MEDS ORDERED: methylPREDNISolone 125MG 2ML VIAL As Ordered ONE (01:43)
[2020-02-12] MEDS ORDERED: methylPREDNISolone 125MG 2ML VIAL IV ONE (01:45)
== END 2020-02-12 01:50 | disposition home or self-care (01) ==
LOC: M ED 20:35
DX: J84.10 Pulmonary fibrosis, unspecified (principal); R10.9 Unspecified abdominal pain; K63.89 Other specified diseases of intestine; K50.90 Crohn's disease, unspecified, without complications; N80.9 Endometriosis, unspecified; K76.0 Fatty (change of) liver, not elsewhere classified; F41.9 Anxiety disorder, unspecified; F33.9 Major depressive disorder, recurrent, unspecified; F17.200 Nicotine dependence, unspecified, uncomplicated; Z88.8 Allergy status to other drugs, medicaments and biological substances; Z91.041 Radiographic dye allergy status; Z79.899 Other long term (current) drug therapy
CPT/HCPCS: 71046; 74177; 80047; 80076; 81001; 83690; 85025; 96361; 96374; 96375; 99284; J2270; J2405; J2930; Q9967

== ENCOUNTER 2020-03-13 07:19 | Emergency (ER) | payer OTHER ==
[~2020-03-13] VITALS: Ht 157.5 cm; Wt 101.1 kg
[~2020-03-13 07:19] MED LIST changes: +MEDR4PAK PO; +PROP10TA56 PO; +TRAZ-252 PO; +[UNRECOGNIZED DRUG - OTHER] PO
[2020-03-13] MEDS ORDERED: OXYC1TAB23 (07:38)
[2020-03-13] MEDS ORDERED: NS 1,000 ML IV ONE (08:00)
[2020-03-13] MEDS ORDERED: KETOROLAC 30 MG/ML 1ML VIAL IV ONE (08:15)
[2020-03-13 08:40] LABS: BASO % 0.2 % (0.0-1.0); EOS # 0.2 10^3/uL (0.0-0.5); HEMATOCRIT 37.2 % (36.0-47.0); HEMOGLOBIN 11.6 g/dl (12.0-15.5); LYMPH # 0.9 10^3/uL (1.5-5.0); MEAN CORPUSCULAR HEMOGLOBIN 27.9 pg (27.0-33.0); MEAN CORPUSCULAR HGB CONC 31.2 g/dl (32.0-36.5); MEAN CORPUSCULAR VOLUME 89.4 fl (80.0-96.0); MONO # 0.8 10^3/uL (0.0-0.8); MONO % 8.6 % (0.0-5.0); NEUTROPHILS # 7.5 10^3/uL (1.5-8.5); NEUTROPHILS % 79.7 % (36.0-66.0); PLATELET COUNT, AUTOMATED 270 10^3/uL (150-450); RED BLOOD COUNT 4.16 10^6/uL (4.00-5.40); WHITE BLOOD COUNT 9.5 10^3/uL (4.0-10.0)
[2020-03-13 09:06] LABS: ALBUMIN 3.3 GM/DL (3.2-5.2); BILIRUBIN,DIRECT 0.1 MG/DL (0.0-0.2); BILIRUBIN,TOTAL 0.3 MG/DL (0.2-1.0); TOTAL PROTEIN 6.5 GM/DL (6.4-8.2)
[2020-03-13] MEDS ORDERED: HALOPERIDOL 5MG/ML VIAL (J1630 PER 1) IV ONE (09:15)
[2020-03-13] MEDS ORDERED: ZOFR4TAB16 PO (10:25)
[2020-03-13 10:27] VITALS: BP 121/79
--- NOTE | 2020-03-13 19:00 | ECGEPIP ---
[facility] - ED Test Date: 2020-03-13 Pat Name: INGRIS JIMENEZ Department: Room: - Gender: Female Manager Asset: : [id number] Requested By: ERIK Wadsworth PA-C Order Number: [id number] Reading MD: Brent Lim Measurements Intervals [place] Rate: 92 P: 36 AR: 167 QRS: -11 QRSD: 91 T: 11 QT: 385 QTc: 476 Interpretive Statements SINUS RHYTHM POSSIBLE LEFT VENTRICULAR HYPERTROPHY LEFTWARD AXIS NONSPECIFIC ST T WAVE CHANGES CW 01/13/[address] T WAVE CHANGES Electronically Signed on 03-13-2020 19:00:26 EST by Brent Lim
[2020-03-14] MEDS ORDERED: SODIUM CHLORIDE 0.9% INJ 10 ML SYR IV SCH (09:00)
== END 2020-03-13 10:47 | disposition home or self-care (01) ==
LOC: M ED 07:19
DX: R10.9 Unspecified abdominal pain (principal); R11.2 Nausea with vomiting, unspecified; K50.90 Crohn's disease, unspecified, without complications; F33.9 Major depressive disorder, recurrent, unspecified; F41.9 Anxiety disorder, unspecified; F43.10 Post-traumatic stress disorder, unspecified; K21.9 Gastro-esophageal reflux disease without esophagitis; G47.33 Obstructive sleep apnea (adult) (pediatric); N80.9 Endometriosis, unspecified; F17.200 Nicotine dependence, unspecified, uncomplicated; Z91.041 Radiographic dye allergy status; Z79.899 Other long term (current) drug therapy
CPT/HCPCS: 80047; 80076; 83605; 83690; 85025; 93005; 96361; 96374; 96375; 99284; J1630; J1642; J1885

== ENCOUNTER 2020-03-15 08:36 | Outpatient (CLI) | payer OTHER ==
[~2020-03-15] VITALS: Ht 157.5 cm; Wt 85.9 kg
[~2020-03-15 08:36] MED LIST changes: +ACETAMINOPHEN TAB 650MG DOSE (2X325MG) PO ONE; +OXYC1TAB23; +VEDOLIZUMAB 300 MG in NS 250 ML IV ONE; +diphenhydrAMINE 25MG CAP PO ONE
[2020-03-15 08:51] VITALS: BP 185/107
[2020-03-15 08:56] VITALS: BP 185/107
[2020-03-15 09:24] VITALS: BP 136/90
[2020-03-15 09:40] VITALS: BP 154/92
[2020-03-15 10:20] VITALS: BP 156/95
[2020-03-15] MEDS ORDERED: SODIUM CHLORIDE 0.9% INJ 10 ML SYR IV PRN (10:30)
[2020-03-16] MEDS ORDERED: SODIUM CHLORIDE 0.9% INJ 10 ML SYR IV SCH (09:00)
== END 2020-03-15 10:20 | disposition home or self-care (01) ==
LOC: M INFU 08:36
PROVIDERS: ATTEND Internal Medicine Gastroenterology
DX: K50.80 Crohn's disease of both small and large intestine without complications (principal); Z88.8 Allergy status to other drugs, medicaments and biological substances; Z91.041 Radiographic dye allergy status
CPT/HCPCS: 96365; J1642; J3380

== ENCOUNTER 2020-04-21 19:17 | Emergency (ER) | payer OTHER ==
[~2020-04-21] VITALS: Ht 157.5 cm; Wt 100.4 kg
[~2020-04-21 19:17] MED LIST changes: -ACETAMINOPHEN TAB 650MG DOSE (2X325MG) PO ONE; +SODIUM CHLORIDE 0.9% INJ 10 ML SYR IV SCH; -VEDOLIZUMAB 300 MG in NS 250 ML IV ONE; -diphenhydrAMINE 25MG CAP PO ONE
[2020-04-21] MEDS ORDERED: NS 1,000 ML IV ONE (20:00)
[2020-04-21] MEDS ORDERED: MORPHINE 4 MG/ML 1ML VIAL/SYRINGE (J2270) IV ONE ×2 (20:00→23:15)
[2020-04-21] MEDS ORDERED: methylPREDNISolone 125MG 2ML VIAL IV ONE (20:00)
[2020-04-21 21:59] LABS: BASO % 0.3 % (0.0-1.0); EOS # 0.1 10^3/uL (0.0-0.5); EOS % 1.1 % (0.0-3.0); HEMATOCRIT 38.9 % (36.0-47.0); HEMOGLOBIN 11.8 g/dl (12.0-15.5); LYMPH # 1.7 10^3/uL (1.5-5.0); LYMPH % 15.5 % (24.0-44.0); MEAN CORPUSCULAR HEMOGLOBIN 26.6 pg (27.0-33.0); MEAN CORPUSCULAR HGB CONC 30.3 g/dl (32.0-36.5); MEAN CORPUSCULAR VOLUME 87.8 fl (80.0-96.0); MONO # 0.6 10^3/uL (0.0-0.8); MONO % 5.8 % (0.0-5.0); NEUTROPHILS # 8.4 10^3/uL (1.5-8.5); NEUTROPHILS % 76.9 % (36.0-66.0); PLATELET COUNT, AUTOMATED 311 10^3/uL (150-450); RED BLOOD COUNT 4.43 10^6/uL (4.00-5.40)
[2020-04-21 22:41] LABS: ALBUMIN 3.1 GM/DL (3.2-5.2); ALT/SGPT 27 U/L (12-78); BILIRUBIN,DIRECT < 0.1 MG/DL (0.0-0.2); BILIRUBIN,TOTAL 0.3 MG/DL (0.2-1.0); BLOOD UREA NITROGEN 9 MG/DL (7-18); CALCIUM LEVEL 8.1 MG/DL (8.5-10.1); CARBON DIOXIDE LEVEL 23 MEQ/L (21-32); CHLORIDE LEVEL 111 MEQ/L (98-107); CREATININE FOR GFR 0.83 MG/DL (0.55-1.30); GLOMERULAR FILTRATION RATE > 60.0 (>60); GLUCOSE, FASTING 97 MG/DL (70-100); LIPASE 177 U/L (73-393); POTASSIUM SERUM 4.6 MEQ/L (3.5-5.1); SODIUM LEVEL 140 MEQ/L (136-145); TOTAL PROTEIN 6.2 GM/DL (6.4-8.2)
[2020-04-21 22:48] LABS: HCG, SERUM QUALITATIVE NEGATIVE (NEGATIVE)
[2020-04-21] MEDS ORDERED: ISOVUE-370 76% 100ML VIAL As Ordered ONE (22:50)
--- NOTE | 2020-04-21 23:49 | REPVR ---
PROCEDURE INFORMATION: Exam: CT Abdomen And Pelvis With Contrast Exam date and time: 04/21/2020 11:09 PM Age: 34 years old Clinical indication: Abdominal pain; Localized; Lower; Additional info: Lower abd pain/hx crohns and bowel obs TECHNIQUE: Imaging protocol: Computed tomography of the abdomen and pelvis with intravenous contrast. Radiation optimization: All CT scans at this facility use at least one of these dose optimization techniques: automated exposure control; mA and/or kV adjustment per patient size (includes targeted exams where dose is matched to clinical indication); or iterative reconstruction. Contrast material: ISO; Contrast volume: 100 ml; Contrast route: INTRAVENOUS (IV); COMPARISON: CT ABD/PEL W/IV CONTRAST ONLY 02/11/2020 10:40 PM FINDINGS: Liver: Normal. No mass. Gallbladder and bile ducts: Status post cholecystectomy. No biliary ductal dilatation. Pancreas: Normal. No ductal dilation. Spleen: Normal. No splenomegaly. Adrenal glands: Normal. No mass. Kidneys and ureters: Normal. No hydronephrosis. Stomach and bowel: Status post partial small bowel resection. Moderate stool in the colon. No abnormal bowel dilatation. No abnormal bowel wall thickening. Negative for colonic diverticulitis. Appendix: The appendix is not seen. However, there is no evidence of appendicitis. Intraperitoneal space: Unremarkable. No free air. No significant fluid collection. Vasculature: Unremarkable. No abdominal aortic aneurysm. Lymph nodes: Unremarkable. No enlarged lymph nodes. Urinary bladder: Unremarkable as visualized. Reproductive: Status post hysterectomy. Bones/joints: Mild degenerative spine. No acute fracture. Soft tissues: There is dependent subcutaneous edema. IMPRESSION: 1. Status post partial small bowel resection. 2. Moderate stool in the colon. 3. No abnormal bowel wall thickening. Electronically signed by: Shreyas Malhotra On 04/21/2020 23:49:31 PM
[2020-04-22] MEDS ORDERED: MIRA3350 PO (00:04)
[2020-04-22] MEDS ORDERED: COLA100C5 PO (00:04)
[2020-04-22 00:37] VITALS: BP 129/77
== END 2020-04-22 00:39 | disposition home or self-care (01) ==
LOC: M ED 19:17
DX: K59.00 Constipation, unspecified (principal); K50.90 Crohn's disease, unspecified, without complications; K21.9 Gastro-esophageal reflux disease without esophagitis; G47.33 Obstructive sleep apnea (adult) (pediatric); M54.9 Dorsalgia, unspecified; F43.10 Post-traumatic stress disorder, unspecified; F41.9 Anxiety disorder, unspecified; F33.9 Major depressive disorder, recurrent, unspecified; F17.200 Nicotine dependence, unspecified, uncomplicated; Z91.041 Radiographic dye allergy status; Z79.899 Other long term (current) drug therapy
CPT/HCPCS: 36415; 74177; 80048; 80076; 81001; 83605; 83690; 84703; 85025; 96361; 96374; 96375; 96376; 99283; J1642; J2270; J2930; Q9967

== ENCOUNTER 2020-05-10 08:38 | Outpatient (CLI) | payer OTHER ==
[~2020-05-10] VITALS: Ht 157.5 cm; Wt 94.1 kg
[~2020-05-10 08:38] MED LIST changes: +ACETAMINOPHEN TAB 650MG DOSE (2X325MG) PO ONE; +COLA100C5 PO; +MIRA3350 PO; +SODIUM CHLORIDE 0.9% INJ 10 ML SYR IV PRN; -SODIUM CHLORIDE 0.9% INJ 10 ML SYR IV SCH; +VEDOLIZUMAB 300 MG in NS 250 ML IV ONE; +diphenhydrAMINE 25MG CAP PO ONE
[2020-05-10 08:46] VITALS: BP 142/81
[2020-05-10 08:53] VITALS: BP 142/81
[2020-05-10] MEDS ORDERED: SODIUM CHLORIDE 0.9% INJ 10 ML SYR IV SCH (09:00)
[2020-05-10 10:19] VITALS: BP 117/72
== END 2020-05-10 10:20 | disposition home or self-care (01) ==
LOC: M INFU 08:38
PROVIDERS: ATTEND Internal Medicine Gastroenterology
DX: K50.80 Crohn's disease of both small and large intestine without complications (principal); Z88.8 Allergy status to other drugs, medicaments and biological substances; Z91.041 Radiographic dye allergy status
CPT/HCPCS: 96365; J1642; J3380

== ENCOUNTER 2020-07-08 11:02 | Outpatient (CLI) | payer OTHER ==
[~2020-07-08] VITALS: Ht 157.5 cm; Wt 100.6 kg
[~2020-07-08 11:02] MED LIST changes: -ACETAMINOPHEN TAB 650MG DOSE (2X325MG) PO ONE; +SODIUM CHLORIDE 0.9% INJ 10 ML SYR IV ONE; -SODIUM CHLORIDE 0.9% INJ 10 ML SYR IV PRN; +USTEKINUMAB 520 MG in NS 146 ML IV ONE; -VEDOLIZUMAB 300 MG in NS 250 ML IV ONE; -diphenhydrAMINE 25MG CAP PO ONE
[2020-07-08 11:16] VITALS: BP 125/75
[2020-07-08 11:25] VITALS: BP 125/75
[2020-07-08] MEDS ORDERED: SODIUM CHLORIDE 0.9% INJ 10 ML SYR IV PRN (11:35)
[2020-07-08 13:00] VITALS: BP 118/63
[2020-07-08 14:00] VITALS: BP 120/65
[2020-07-09] MEDS ORDERED: SODIUM CHLORIDE 0.9% INJ 10 ML SYR IV SCH (09:00)
== END 2020-07-08 14:12 | disposition home or self-care (01) ==
LOC: M INFU 11:02
PROVIDERS: ATTEND Internal Medicine Gastroenterology
DX: K50.80 Crohn's disease of both small and large intestine without complications (principal); Z88.8 Allergy status to other drugs, medicaments and biological substances
CPT/HCPCS: 96365; 96366; 96523; J1642; J3358

== ENCOUNTER 2020-07-16 16:04 | Emergency (ER) | payer OTHER ==
[~2020-07-16] VITALS: Ht 157.5 cm; Wt 102.5 kg
[~2020-07-16 16:04] MED LIST changes: -SODIUM CHLORIDE 0.9% INJ 10 ML SYR IV ONE; -USTEKINUMAB 520 MG in NS 146 ML IV ONE
[2020-07-16] MEDS ORDERED: STEL90IN SC (16:13)
[2020-07-16] MEDS ORDERED: NS 1,000 ML IV ONE (17:20)
[2020-07-16] MEDS ORDERED: MORPHINE 4 MG/ML 1ML VIAL/SYRINGE (J2270) IV ONE ×2 (17:20→19:05)
[2020-07-16] MEDS ORDERED: ONDANSETRON 4MG/2ML VIAL IV ONE (17:20)
[2020-07-16] MEDS ORDERED: SODIUM CHLORIDE 0.9% INJ 10 ML SYR IV PRN (17:20)
[2020-07-16 18:05] LABS: BASO % 0.3 % (0.0-1.0); EOS # 0.3 10^3/uL (0.0-0.5); EOS % 2.5 % (0.0-3.0); HEMATOCRIT 37.6 % (36.0-47.0); HEMOGLOBIN 11.9 g/dl (12.0-15.5); LYMPH # 2.4 10^3/uL (1.5-5.0); LYMPH % 23.3 % (24.0-44.0); MEAN CORPUSCULAR HEMOGLOBIN 27.5 pg (27.0-33.0); MEAN CORPUSCULAR HGB CONC 31.6 g/dl (32.0-36.5); MONO # 0.6 10^3/uL (0.0-0.8); MONO % 6.2 % (2.0-8.0); NEUTROPHILS # 6.9 10^3/uL (1.5-8.5); NEUTROPHILS % 67.2 % (36.0-66.0); PLATELET COUNT, AUTOMATED 350 10^3/uL (150-450); RED BLOOD COUNT 4.32 10^6/uL (4.00-5.40); WHITE BLOOD COUNT 10.3 10^3/uL (4.0-10.0)
[2020-07-16 18:27] LABS: ERYTHROCYTE SEDIMENTATION RATE 18 mm/hr (0-20)
[2020-07-16 18:34] LABS: ALBUMIN 3.2 GM/DL (3.2-5.2); ALT/SGPT 32 U/L (12-78); BILIRUBIN,DIRECT < 0.1 MG/DL (0.0-0.2); BILIRUBIN,TOTAL < 0.1 MG/DL (0.2-1.0); C REACTIVE PROTEIN QUANTITATIV 0.84 MG/DL (0.00-0.30); LIPASE 98 U/L (73-393); TOTAL PROTEIN 6.4 GM/DL (6.4-8.2)
--- NOTE | 2020-07-16 19:19 | REP ---
INDICATION: severe abd pain, crohns, r/o obstruction. COMPARISON: Comparison study February 12, 2020.. TECHNIQUE: Four views including upright chest radiograph. FINDINGS: Upright chest radiograph shows no evidence of infiltrate or free subdiaphragmatic air. There is a right-sided Iecuvn-Q-[id number] catheter again noted with its tip in the expected location of superior vena cava. Heart size is normal. Supine and erect views of the abdomen show clips in the right upper quadrant consistent with cholecystectomy. There is air and stool in the ascending and transverse colon segments. There are 1 or 2 loops of air-filled small bowel in the left mid abdomen. Flank stripes are intact. Psoas margins are symmetric. Sacrum and SI joints appear intact. There is no significant air-fluid level on the upright radiograph. No evidence of free air. IMPRESSION: Nonspecific small bowel loops in the central abdomen. Right upper quadrant clips. No evidence of free air or significant air-fluid level.. <Electronically signed by Jesus Olivas > 07/16/201914
[2020-07-16] MEDS ORDERED: DICYCLOMINE 10 MG CAP PO ONE (20:25)
[2020-07-16 21:01] VITALS: BP 122/86
== END 2020-07-16 21:16 | disposition home or self-care (01) ==
LOC: M ED 16:04
DX: R10.11 Right upper quadrant pain (principal); R11.0 Nausea; R19.7 Diarrhea, unspecified; K50.90 Crohn's disease, unspecified, without complications; N80.9 Endometriosis, unspecified; Z87.440 Personal history of urinary (tract) infections; F17.200 Nicotine dependence, unspecified, uncomplicated; Z91.041 Radiographic dye allergy status; Z79.899 Other long term (current) drug therapy
CPT/HCPCS: 74021; 80047; 80076; 83690; 84702; 85025; 85652; 86140; 96361; 96374; 96375; 96376; 99283; J2270; J2405

== ENCOUNTER 2020-07-22 19:44 | Emergency (ER) | payer OTHER ==
[~2020-07-22] VITALS: Ht 157.5 cm; Wt 101.8 kg
[~2020-07-22 19:44] MED LIST changes: +STEL90IN SC
[2020-07-22] MEDS ORDERED: PANTOPRAZOLE 40MG VIAL (C9113 PER 1) IV ONE (21:05)
[2020-07-22] MEDS ORDERED: ONDANSETRON 4MG/2ML VIAL IV ONE (21:05)
[2020-07-22] MEDS ORDERED: GI COCKTAIL 50ML BTL(HYOSCYAMINE/MAALOX/LIDOCAINE VISCOUS)(1:3:1) PO ONE (21:05)
[2020-07-22] MEDS ORDERED: fentaNYL 100 MCG/2 ML INJECTION (J3010) IV ONE (21:05)
--- NOTE | 2020-07-22 21:47 | REPVR ---
PROCEDURE INFORMATION: Exam: XR Complete Acute Abdomen Series Exam date and time: 07/22/2020 9:27 PM Age: 34 years old Clinical indication: Other: Gas pattern/abdominal pain; Additional info: Examine gas pattern /abdominal pain TECHNIQUE: Imaging protocol: XR complete acute abdomen series, including 2 or more views of the abdomen and a single view chest. COMPARISON: CR Abdomen,Flat Upright,PA CHEST 07/16/2020 6:27 PM FINDINGS: Tubes, catheters and devices: MediPort catheter demonstrated with the tip at the superior cavoatrial junction. Lungs: Normal. No consolidation. Pleural spaces: Normal. No pleural effusions. No pneumothorax. Heart/Mediastinum: Normal. No cardiomegaly. Gastrointestinal tract: Normal. No bowel dilation. Intraperitoneal space: Normal. No free air. Organs: There has been a cholecystectomy. Bones/joints: Normal. No acute fracture. Soft tissues: Normal. Other findings: Mild fecal retention. IMPRESSION: 1. There has been a cholecystectomy. 2. Mild fecal retention. Electronically signed by: Kingston Mojica On 07/22/2020 21:47:50 PM
[2020-07-22 22:29] LABS: BASO % 0.3 % (0.0-1.0); EOS # 0.2 10^3/uL (0.0-0.5); EOS % 1.8 % (0.0-3.0); HEMATOCRIT 37.2 % (36.0-47.0); HEMOGLOBIN 11.8 g/dl (12.0-15.5); LYMPH # 1.8 10^3/uL (1.5-5.0); LYMPH % 20.4 % (24.0-44.0); MEAN CORPUSCULAR HEMOGLOBIN 27.4 pg (27.0-33.0); MEAN CORPUSCULAR HGB CONC 31.7 g/dl (32.0-36.5); MEAN CORPUSCULAR VOLUME 86.5 fl (80.0-96.0); MONO # 0.5 10^3/uL (0.0-0.8); MONO % 6.1 % (2.0-8.0); NEUTROPHILS # 6.3 10^3/uL (1.5-8.5); NEUTROPHILS % 71.2 % (36.0-66.0); PLATELET COUNT, AUTOMATED 321 10^3/uL (150-450); WHITE BLOOD COUNT 8.9 10^3/uL (4.0-10.0)
[2020-07-22 22:55] LABS: ALBUMIN 3.2 GM/DL (3.2-5.2); ALT/SGPT 57 U/L (12-78); BILIRUBIN,DIRECT 0.1 MG/DL (0.0-0.2); BILIRUBIN,TOTAL 0.2 MG/DL (0.2-1.0); BLOOD UREA NITROGEN 8 MG/DL (7-18); CALCIUM LEVEL 8.8 MG/DL (8.5-10.1); CARBON DIOXIDE LEVEL 26 MEQ/L (21-32); CHLORIDE LEVEL 108 MEQ/L (98-107); CREATININE FOR GFR 0.63 MG/DL (0.55-1.30); GLOMERULAR FILTRATION RATE > 60.0 (>60); GLUCOSE, FASTING 100 MG/DL (70-100); LIPASE 168 U/L (73-393); POTASSIUM SERUM 3.8 MEQ/L (3.5-5.1); SODIUM LEVEL 140 MEQ/L (136-145); TOTAL PROTEIN 6.5 GM/DL (6.4-8.2)
[2020-07-22] MEDS ORDERED: LR 1,000 ML IV ONE (23:10)
[2020-07-22] MEDS ORDERED: MORPHINE 4 MG/ML 1ML VIAL/SYRINGE (J2270) IV ONE (23:10)
[2020-07-23] MEDS: GASTROGRAFIN SOLUTION 30ML PO SCH ×2 (00:42→01:31)
[2020-07-23] MEDS ORDERED: diphenhydrAMINE 50MG/ML VIAL (J1200) IV STA (01:12)
[2020-07-23] MEDS ORDERED: MORPHINE 4 MG/ML 1ML VIAL/SYRINGE (J2270) IV ONE (01:25)
[2020-07-23] MEDS ORDERED: DICYCLOMINE INJ 20MG/2ML (J0500) IM ONE (01:25)
[2020-07-23] MEDS ORDERED: methylPREDNISolone 125MG 2ML VIAL IV ONE (01:25)
[2020-07-23] MEDS ORDERED: ISOVUE-370 76% 100ML VIAL As Ordered ONE (01:58)
--- NOTE | 2020-07-23 03:22 | REPVR ---
PROCEDURE INFORMATION: Exam: CT Abdomen and Pelvis with Contrast Exam date and time: 07/23/20 (2:16am) Age: 34 years old Clinical indication: Generalized abdominal pain TECHNIQUE: Imaging protocol: Computed tomography of the abdomen and pelvis with contrast. Radiation optimization: All CT scans at this facility use at least one of these dose optimization techniques: automated exposure control; mA and/or kV adjustment per patient size (includes targeted exams where dose is matched to clinical indication); or iterative reconstruction. Contrast material: Iso Contrast volume: 100 ml Contrast route: IV Other contrast: Oral, gastrografin, 100 COMPARISON: CT ABDOMEN PELVIS of 04/21/20 FINDINGS: Lower lung brennan: Probable old linear scarring posteriorly at each lung base. No pleural effusions. Liver: No solid mass. Diffuse fatty infiltration. Gallbladder and bile ducts: S/P cholecystectomy. No ductal dilatation. Pancreas: Normal. No ductal dilatation. Spleen: Prominent spleen. Adrenal glands: Normal. No mass. Kidneys and ureters: Normal. No hydronephrosis. Mildly full right renal pelvis. Stomach and bowel: No bowel obstruction. No mucosal thickening. Previous small bowel-related surgery, left mid abdomen. Appendix: No evidence of appendicitis. Intraperitoneal space: Unremarkable. No free air. No significant fluid collection. Vasculature: Unremarkable. No abdominal aortic aneurysm. Lymph nodes: Unremarkable. No enlarged lymph nodes. Urinary bladder: Unremarkable as visualized. Reproductive: Most likely S/P hysterectomy. Bones/joints: No acute fracture. Degenerative changes in the lower lumbar spine. Soft tissues: Unremarkable. IMPRESSION: No acute pathology. SP cholecystectomy. Probably S/P hysterectomy. Prominent spleen. No acute bowel pathology. No hydronephrosis. Electronically signed by: Leonor Madsen On 07/23/2020 03:22:11 AM
[2020-07-23] MEDS ORDERED: FLAG500T PO (04:14)
[2020-07-23] MEDS ORDERED: CIPR-249 PO (04:14)
[2020-07-23 04:55] VITALS: BP 174/110
[2020-07-23] MEDS ORDERED: PROPRANOLOL 20 MG TAB PO ONE (05:10)
[2020-07-23 05:39] VITALS: BP 174/110
== END 2020-07-23 05:42 | disposition home or self-care (01) ==
LOC: M ED 19:44
DX: R14.0 Abdominal distension (gaseous) (principal); K50.919 Crohn's disease, unspecified, with unspecified complications; K52.9 Noninfective gastroenteritis and colitis, unspecified; Z79.899 Other long term (current) drug therapy
CPT/HCPCS: 36415; 74021; 74177; 80047; 80048; 80076; 81001; 83605; 83690; 85025; 96365; 96366; 96372; 96375; 96376; 99284; C9113; J0500; J1200; J2270; J2405; J2930; J3010; Q9963; Q9967

== ENCOUNTER 2020-08-22 18:00 | Emergency (ER) | payer OTHER ==
[~2020-08-22] VITALS: Ht 157.5 cm; Wt 99.8 kg
[2020-08-22] MEDS ORDERED: MORPHINE 4 MG/ML 1ML VIAL/SYRINGE (J2270) IV ONE (20:50)
[2020-08-22] MEDS ORDERED: NS 1,000 ML IV ONE (20:50)
[2020-08-22] MEDS ORDERED: ONDANSETRON 4MG/2ML VIAL IV ONE (20:50)
[2020-08-22] MEDS ORDERED: methylPREDNISolone 125MG 2ML VIAL IV ONE (20:55)
[2020-08-22 21:38] LABS: BASO % 0.2 % (0.0-1.0); EOS # 0.2 10^3/uL (0.0-0.5); EOS % 1.3 % (0.0-3.0); HEMATOCRIT 41.4 % (36.0-47.0); HEMOGLOBIN 13.3 g/dl (12.0-15.5); LYMPH # 2.9 10^3/uL (1.5-5.0); LYMPH % 23.2 % (24.0-44.0); MEAN CORPUSCULAR HEMOGLOBIN 27.3 pg (27.0-33.0); MEAN CORPUSCULAR HGB CONC 32.1 g/dl (32.0-36.5); MONO # 0.9 10^3/uL (0.0-0.8); MONO % 6.9 % (2.0-8.0); NEUTROPHILS # 8.6 10^3/uL (1.5-8.5); PLATELET COUNT, AUTOMATED 368 10^3/uL (150-450); RED BLOOD COUNT 4.87 10^6/uL (4.00-5.40); WHITE BLOOD COUNT 12.6 10^3/uL (4.0-10.0)
[2020-08-22 22:04] LABS: ALBUMIN 3.5 GM/DL (3.2-5.2); ALT/SGPT 33 U/L (12-78); BILIRUBIN,DIRECT < 0.1 MG/DL (0.0-0.2); BILIRUBIN,TOTAL 0.2 MG/DL (0.2-1.0); BLOOD UREA NITROGEN 7 MG/DL (7-18); CALCIUM LEVEL 9.1 MG/DL (8.5-10.1); CARBON DIOXIDE LEVEL 25 MEQ/L (21-32); CHLORIDE LEVEL 106 MEQ/L (98-107); GLOMERULAR FILTRATION RATE > 60.0 (>60); GLUCOSE, FASTING 74 MG/DL (70-100); LIPASE 99 U/L (73-393); SODIUM LEVEL 136 MEQ/L (136-145); TOTAL PROTEIN 7.1 GM/DL (6.4-8.2)
--- NOTE | 2020-08-22 22:41 | REPVR ---
PROCEDURE INFORMATION: Exam: XR Abdomen Exam date and time: 08/22/2020 9:31 PM Age: 34 years old Clinical indication: Abdominal pain TECHNIQUE: Imaging protocol: XR of the abdomen. Views: Frontal supine view of the abdomen. 1 View. COMPARISON: 1. CT ABD/PEL W/IV ORAL CONTRAS 2020-07-23 02:13 2. CR Abdomen,Flat Upright,PA CHEST 2020-07-22 21:15 3. CR Abdomen,Flat Upright,PA CHEST 2020-07-16 18:[address] ABD/PEL W/IV CONTRAST ONLY 2020-04-21 23:00 FINDINGS: Gastrointestinal tract: Excessive gas distension of the transverse colon. Suture from bowel anastomosis in the left upper to mid abdomen. Organs: Cholecystectomy clips in the right upper quadrant. Bones/joints: Unremarkable. IMPRESSION: Excessive gas distension of the transverse colon. Electronically signed by: Rajan Russo On 08/22/2020 22:41:15 PM
[2020-08-22] MEDS ORDERED: MORPHINE 2 MG/ML 1ML VIAL (J2270) IV ONE (23:15)
[2020-08-22] MEDS ORDERED: ISOVUE-370 76% 100ML VIAL As Ordered ONE (23:39)
--- NOTE | 2020-08-23 00:07 | REPVR ---
PROCEDURE INFORMATION: Exam: CT Abdomen And Pelvis Without Contrast Exam date and time: 08/22/2020 11:47 PM Age: 34 years old Clinical indication: Abdominal pain; Prior surgery; Surgery date: 6+ months; Surgery type: R/O perforation TECHNIQUE: Imaging protocol: Computed tomography of the abdomen and pelvis without contrast. Radiation optimization: All CT scans at this facility use at least one of these dose optimization techniques: automated exposure control; mA and/or kV adjustment per patient size (includes targeted exams where dose is matched to clinical indication); or iterative reconstruction. COMPARISON: 1. CT ABD/PEL W/IV ORAL CONTRAS 2020-07-23 02:[address] ABD/PEL W/IV CONTRAST ONLY 2020-04-21 23:00 FINDINGS: Liver: Enlarged low attenuating liver, evidence of hepatic steatosis. Gallbladder and bile ducts: Cholecystectomy clips in the right upper quadrant. Pancreas: Normal. No ductal dilation. Spleen: The spleen demonstrates punctate calcifications, consistent with remote granulomatous organism exposure. Adrenal glands: Normal. No mass. Kidneys and ureters: Normal. No hydronephrosis. Stomach and bowel: Left upper abdominal small bowel anastomosis. Gassy transverse colon without obstruction and decompression of the descending colon. Appendix: No evidence of appendicitis. Intraperitoneal space: Unremarkable. No free air. No significant fluid collection. Vasculature: Unremarkable. No abdominal aortic aneurysm. Lymph nodes: Unremarkable. No enlarged lymph nodes. Urinary bladder: Unremarkable as visualized. Reproductive: Hysterectomy. Bones/joints: Moderate lower lumbar spondylosis. Soft tissues: Unremarkable. IMPRESSION: No acute abnormality. Electronically signed by: Rajan Russo On 08/23/2020 00:07:18 AM
[2020-08-23] MEDS ORDERED: METH4PACK PO (00:53)
[2020-08-23] MEDS ORDERED: OXYCODONE/APAP 5MG/325MG(BULK FOR ED) 1 TABLET PO ONE (00:55)
[2020-08-23 01:35] VITALS: BP 135/84
== END 2020-08-23 01:36 | disposition home or self-care (01) ==
LOC: M ED 18:00
DX: K50.90 Crohn's disease, unspecified, without complications (principal); E86.0 Dehydration; R10.32 Left lower quadrant pain; I10 Essential (primary) hypertension; G89.29 Other chronic pain; M54.5 Low back pain; K52.9 Noninfective gastroenteritis and colitis, unspecified; N80.9 Endometriosis, unspecified; F17.200 Nicotine dependence, unspecified, uncomplicated; Z91.041 Radiographic dye allergy status; Z79.899 Other long term (current) drug therapy
CPT/HCPCS: 74018; 74176; 80048; 80076; 83605; 83690; 85025; 96361; 96374; 96375; 96376; 99284; J2270; J2405; J2930

== ENCOUNTER 2020-09-30 17:29 | Emergency (ER) | payer OTHER ==
[~2020-09-30] VITALS: Ht 157.5 cm; Wt 100.0 kg
[~2020-09-30 17:29] MED LIST changes: +METH4PACK PO
[2020-09-30] MEDS ORDERED: PANTOPRAZOLE 40MG VIAL (C9113 PER 1) IV ONE (22:05)
[2020-09-30] MEDS ORDERED: NS 1,000 ML IV ONE (22:05)
[2020-09-30] MEDS ORDERED: KETOROLAC 30 MG/ML 1ML VIAL IV ONE (22:05)
[2020-09-30] MEDS ORDERED: ONDANSETRON 4MG/2ML VIAL As Ordered ONE (22:22)
[2020-09-30] MEDS ORDERED: ONDANSETRON 4MG/2ML VIAL IV ONE (22:25)
[2020-09-30 22:41] LABS: BASO % 0.2 % (0.0-1.0); EOS # 0.1 10^3/uL (0.0-0.5); EOS % 1.1 % (0.0-3.0); HEMATOCRIT 40.2 % (36.0-47.0); HEMOGLOBIN 12.7 g/dl (12.0-15.5); LYMPH # 2.4 10^3/uL (1.5-5.0); MEAN CORPUSCULAR HEMOGLOBIN 26.1 pg (27.0-33.0); MEAN CORPUSCULAR HGB CONC 31.6 g/dl (32.0-36.5); MEAN CORPUSCULAR VOLUME 82.5 fl (80.0-96.0); MONO # 0.8 10^3/uL (0.0-0.8); MONO % 6.5 % (2.0-8.0); NEUTROPHILS # 9.2 10^3/uL (1.5-8.5); NEUTROPHILS % 72.7 % (36.0-66.0); PLATELET COUNT, AUTOMATED 367 10^3/uL (150-450); RED BLOOD COUNT 4.87 10^6/uL (4.00-5.40); WHITE BLOOD COUNT 12.6 10^3/uL (4.0-10.0)
[2020-09-30 23:13] LABS: ALBUMIN 3.4 GM/DL (3.2-5.2); ALT/SGPT 17 U/L (12-78); BILIRUBIN,DIRECT 0.1 MG/DL (0.0-0.2); BILIRUBIN,TOTAL 0.3 MG/DL (0.2-1.0); BLOOD UREA NITROGEN 8 MG/DL (7-18); CALCIUM LEVEL 9.4 MG/DL (8.5-10.1); CARBON DIOXIDE LEVEL 24 MEQ/L (21-32); CHLORIDE LEVEL 107 MEQ/L (98-107); CREATININE FOR GFR 0.79 MG/DL (0.55-1.30); GLOMERULAR FILTRATION RATE > 60.0 (>60); GLUCOSE, FASTING 95 MG/DL (70-100); LIPASE 214 U/L (73-393); POTASSIUM SERUM 3.9 MEQ/L (3.5-5.1); SODIUM LEVEL 139 MEQ/L (136-145)
[2020-09-30] MEDS ORDERED: MORPHINE 4 MG/ML 1ML VIAL/SYRINGE (J2270) IV ONE (23:25)
--- NOTE | 2020-10-01 01:20 | REPVR ---
PROCEDURE INFORMATION: Exam: XR Abdomen Exam date and time: 09/30/2020 12:27 AM Age: 34 years old Clinical indication: Other: Abd pain TECHNIQUE: Imaging protocol: XR of the abdomen. Views: 2 Views. Upright and supine views. COMPARISON: CT ABD PELVIS W/O CONTRAST 08/22/2020 11:43 PM FINDINGS: Gastrointestinal tract: There is left abdominal bowel anastomosis. Moderate colonic fecal retention. Nonobstructive bowel gas pattern. Intraperitoneal space: No free intraperitoneal air. Bones/joints: Mild levoconvex curvature. IMPRESSION: No acute abnormality. Electronically signed by: Royce Malhotra On 10/01/2020 01:19:50 AM
[2020-10-01] MEDS ORDERED: ONDA4TAB6 PO (01:45)
[2020-10-01 02:16] VITALS: BP 123/97
== END 2020-10-01 02:19 | disposition home or self-care (01) ==
LOC: M ED 17:29
DX: R10.9 Unspecified abdominal pain (principal); R11.2 Nausea with vomiting, unspecified; K50.90 Crohn's disease, unspecified, without complications; N80.9 Endometriosis, unspecified; F43.10 Post-traumatic stress disorder, unspecified; F33.9 Major depressive disorder, recurrent, unspecified; F17.210 Nicotine dependence, cigarettes, uncomplicated; Z79.899 Other long term (current) drug therapy; Z91.041 Radiographic dye allergy status; Z88.8 Allergy status to other drugs, medicaments and biological substances; Z90.49 Acquired absence of other specified parts of digestive tract; Z98.890 Other specified postprocedural states; Z83.79 Family history of other diseases of the digestive system
CPT/HCPCS: 36415; 74019; 80048; 80076; 83690; 85025; 86850; 86900; 86901; 96374; 96375; 99284; C9113; J1642; J1885; J2270; J2405

== ENCOUNTER → 2021-02-13 | Outpatient (CLI) | payer OTHER ==
[~2021-02-13] MED LIST changes: +HYDR-3363 PO; -IBUP200T45 PO; +IBUP200T46 PO
== END ==
LOC: M LABSMTC 09:03
PROVIDERS: ATTEND Anesthesiology
DX: Z01.812 Encounter for preprocedural laboratory examination (principal); Z20.822 Contact with and (suspected) exposure to COVID-19

== ENCOUNTER 2021-02-17 06:22 | Day surgery (SDC) | payer OTHER ==
[~2021-02-17] VITALS: Ht 157.5 cm; Wt 104.8 kg
[~2021-02-17 06:22] MED LIST changes: +AMPICILLIN SOD/SULBACTAM SOD 3 GM in D5W MINI-BAG PLUS 100 ML IV ONE; +LR 1,000 ML IV ONE; +dexameTHASONE 4 MG/ML 1ML VIAL (J1100 PER 1MG) IV ONE
[2021-02-17] MEDS ORDERED: LIDOCAINE 2% W/ EPINEPHRINE 1.7 ML DENTAL INJ As Ordered ONE (07:10)
[2021-02-17] MEDS ORDERED: OXYMETAZOLINE 0.05% NASAL SPRAY (AFRIN) As Ordered ONE (07:13)
[2021-02-17] MEDS ORDERED: ROCURONIUM BROMIDE 50 MG/5 ML VIAL As Ordered ONE (07:20)
[2021-02-17] MEDS ORDERED: dexameTHASONE 4 MG/ML 1ML VIAL (J1100 PER 1MG) As Ordered ONE (07:20)
[2021-02-17] MEDS ORDERED: ONDANSETRON 4MG/2ML VIAL As Ordered ONE (07:20)
[2021-02-17] MEDS ORDERED: propofoL 200 MG/20 ML VIAL As Ordered ONE (07:20)
[2021-02-17] MEDS ORDERED: LIDOCAINE 2% 100MG/5ML SDV (FOR ANES.) As Ordered ONE (07:20)
[2021-02-17] MEDS ORDERED: MIDAZOLAM INJ 2MG/2ML VIAL (J2250 PER 1MG) As Ordered ONE (07:20)
[2021-02-17] MEDS ORDERED: fentaNYL 100 MCG/2 ML INJECTION (J3010) As Ordered ONE (07:20)
[2021-02-17] MEDS ORDERED: SCOPOLAMINE 1MG TRANSDERMAL PATCH As Ordered ONE (07:42)
[2021-02-17] MEDS ORDERED: SCOPOLAMINE 1MG TRANSDERMAL PATCH TOP ONE (07:45)
[2021-02-17] MEDS ORDERED: METOCLOPRAMIDE INJ 10MG/2ML VIAL (J2765 PER 1) As Ordered ONE (07:55)
[2021-02-17] MEDS ORDERED: ACETAMINOPHEN 1000MG 100ML IV BTL (OFIRMEV) (J0131 PER 10MG) As Ordered ONE (07:56)
[2021-02-17] MEDS ORDERED: SUGAMMADEX SODIUM 500 MG/5 ML VIAL (BRIDION) As Ordered ONE (08:01)
[2021-02-17] MEDS ORDERED: KETOROLAC 60MG 2ML VIAL As Ordered ONE (08:02)
[2021-02-17] MEDS ORDERED: CHLORHEXIDINE GLUCONATE 0.12 % 15ML UDC (PERIDEX ORAL RINSE) As Ordered ONE (08:05)
[2021-02-17] MEDS ORDERED: ESMOLOL INJ 100MG/10ML VIAL As Ordered ONE (08:14)
[2021-02-17] MEDS ORDERED: fentaNYL 100 MCG/2 ML INJECTION (J3010) IV PRN (10:10)
[2021-02-17] MEDS ORDERED: LR 1,000 ML IV SCH (10:10)
[2021-02-17] MEDS ORDERED: oxyCODONE 5MG TAB PO PRN (10:10)
[2021-02-17] MEDS ORDERED: ONDANSETRON 4MG/2ML VIAL IV PRN (10:10)
--- NOTE | 2021-02-17 10:29 | RO ---
OPERATIVE NOTE DATE OF OPERATION: 02/17/2021 PREOPERATIVE DIAGNOSES: 1. Complex medical history with multiple comorbidities. 2. Hopeless and symptomatic dentition including grossly decayed teeth #1, 3, 4, 5, 7, 8, 9, 12, 13, 15, 16, 18, 20, 21, 22, 23, 24, 25, 26, 27 and 28. POSTOPERATIVE DIAGNOSES: Status post: 1. Complex medical history with multiple comorbidities. 2. Hopeless and symptomatic dentition including grossly decayed teeth #1, 3, 4, 5, 7, 8, 9, 12, 13, 15, 16, 18, 20, 21, 22, 23, 24, 25, 26, 27 and 28. PROCEDURE PERFORMED: Full mouth extraction, namely extraction of all the aforementioned teeth. SURGEON: Miguelito Shepherd DMD ASTRO TECHNICIAN: ANESTHESIA: General endotracheal anesthesia via nasal SCOT. SPECIMEN: Teeth for gross only. INDICATIONS FOR SURGERY: Yajaira is a pleasant 35-year-old female referred to me by her general dentist for evaluation for extraction of all of her teeth. She does report daily pain and swelling in her gums, inability to eat any foods due to the tooth sensitivity that she has. She tells me that she wants to have all of her teeth removed and have dentures in the future. Clinical exam reveals grossly decayed dentition with severe cervical caries in all of her teeth. She is morbidly obese and does have severe and multiple health issues. She is not a candidate for office anesthesia and due to her severe dental anxiety she elected to have the procedure done under general anesthesia in an operating room setting as she declined nitrous and local in the office. All the risks, benefits and alternatives were explained to the patient including no treatment and informed consent was explained and obtained and signed by the patient. A complete history and physical is in the patient's chart. DESCRIPTION OF PROCEDURE: The patient was taken back to the operating room. She was laid supine on the operating room table. Ulnar nerve protectors were placed. Noninvasive cardiac monitors were applied. At that point, the patient underwent general anesthesia and was intubated with a nasal SCOT. She was prepped and draped in the usual sterile fashion. A time out procedure was performed to identify the patient, the procedure and any other precautions. Preoperative antibiotics and steroids were administered in the IV. A moist throat pack was inserted in the patient's oropharynx followed by the administration of 8 carpules of 2% lidocaine with 1:100,000 Epinephrine as local infiltrations and blocks. At this point, a full thickness flap was released at sites #1, 3, 4, 5, 7, 8, 9, 12, 13, 15, 16, 18, 20, 21, 22, 27 and 28. A small buccal trough was made in each indicated tooth area that I mentioned. At this point the teeth were luxated and delivered with forceps and elevators. All the sockets were curetted and irrigated. No sinus exposure was noted. Alveoloplasty was performed to remove any sharp bony areas and undercuts. The flaps were then closed with 3-0 chromic sutures. Routine forceps extraction of teeth #23, 24, 25, 26 was performed. Those sockets were also curetted and irrigated. At this point once all the teeth were removed, the oral cavity was irrigated and suctioned. The throat pack was removed. The patient was awakened from general anesthesia and taken back to the PACU without any incident. ESTIMATED BLOOD LOSS: 25 mL. DRAINS: No drains placed.
[2021-02-17] MEDS ORDERED: SODIUM CHLORIDE 0.9% INJ 10 ML SYR IV PRN (12:20)
[2021-02-17 12:32] VITALS: BP 127/74
[2021-02-18] MEDS ORDERED: SODIUM CHLORIDE 0.9% INJ 10 ML SYR IV SCH (09:00)
== END 2021-02-17 12:36 | disposition home or self-care (01) ==
LOC: M SDC 06:22
PROVIDERS: ATTEND Dentist
DX: K02.9 Dental caries, unspecified (principal); D64.9 Anemia, unspecified; F41.9 Anxiety disorder, unspecified; Z79.899 Other long term (current) drug therapy; K50.90 Crohn's disease, unspecified, without complications; F17.218 Nicotine dependence, cigarettes, with other nicotine-induced disorders; Z91.041 Radiographic dye allergy status; Z88.8 Allergy status to other drugs, medicaments and biological substances
CPT/HCPCS: 88300; D7210; D7310; D9223; J0131; J1100; J1642; J1885; J2250; J2405; J2765; J3010

== ENCOUNTER 2021-06-19 23:18 | Emergency (ER) | payer OTHER ==
[~2021-06-19] VITALS: Ht 157.5 cm; Wt 103.4 kg
[~2021-06-19 23:18] MED LIST changes: -AMPICILLIN SOD/SULBACTAM SOD 3 GM in D5W MINI-BAG PLUS 100 ML IV ONE; -DICY20TA11 PO; +DICY20TA20 PO; -LR 1,000 ML IV ONE; -OMEP-221 PO; +OMEP40CA5 PO; -dexameTHASONE 4 MG/ML 1ML VIAL (J1100 PER 1MG) IV ONE
[2021-06-20] MEDS ORDERED: PROMETHAZINE INJ 25 MG/ML VIAL (J2550) IV ONE (00:15)
[2021-06-20 01:01] LABS: BASO % 0.4 % (0.0-1.0); EOS # 0.2 10^3/uL (0.0-0.5); EOS % 2.1 % (0.0-3.0); HEMATOCRIT 36.7 % (36.0-47.0); HEMOGLOBIN 11.7 g/dl (12.0-15.5); LYMPH # 1.9 10^3/uL (1.5-5.0); LYMPH % 20.8 % (24.0-44.0); MEAN CORPUSCULAR HEMOGLOBIN 25.7 pg (27.0-33.0); MEAN CORPUSCULAR HGB CONC 31.9 g/dl (32.0-36.5); MEAN CORPUSCULAR VOLUME 80.7 fl (80.0-96.0); MONO # 0.7 10^3/uL (0.0-0.8); MONO % 7.8 % (2.0-8.0); NEUTROPHILS # 6.3 10^3/uL (1.5-8.5); NEUTROPHILS % 68.2 % (36.0-66.0); PLATELET COUNT, AUTOMATED 334 10^3/uL (150-450); RED BLOOD COUNT 4.55 10^6/uL (4.00-5.40); WHITE BLOOD COUNT 9.2 10^3/uL (4.0-10.0)
[2021-06-20] MEDS ORDERED: KETOROLAC 30 MG/ML 1ML VIAL IV ONE (01:05)
[2021-06-20] MEDS ORDERED: LORazepam 2 MG/ML VIAL IV STA (01:29)
[2021-06-20 01:36] LABS: ALT/SGPT 47 U/L (12-78); BILIRUBIN,DIRECT < 0.1 MG/DL (0.0-0.2); BILIRUBIN,TOTAL 0.1 MG/DL (0.2-1.0); C REACTIVE PROTEIN QUANTITATIV 1.51 MG/DL (0.00-0.30); LIPASE 91 U/L (73-393); TOTAL PROTEIN 6.5 GM/DL (6.4-8.2)
[2021-06-20] MEDS ORDERED: MIRA3350 PO (01:46)
[2021-06-20 02:01] LABS: ERYTHROCYTE SEDIMENTATION RATE 24 mm/hr (0-20)
[2021-06-20 02:13] VITALS: BP 158/90
== END 2021-06-20 02:16 | disposition home or self-care (01) ==
LOC: M ED 23:18
DX: K59.00 Constipation, unspecified (principal); R11.0 Nausea; K50.90 Crohn's disease, unspecified, without complications; N80.9 Endometriosis, unspecified; F43.10 Post-traumatic stress disorder, unspecified; F41.9 Anxiety disorder, unspecified; F17.200 Nicotine dependence, unspecified, uncomplicated; Z91.041 Radiographic dye allergy status; Z88.8 Allergy status to other drugs, medicaments and biological substances; Z79.899 Other long term (current) drug therapy
CPT/HCPCS: 74018; 80047; 80076; 83690; 85025; 85652; 86140; 96374; 96375; 99284; J1885; J2060

== ENCOUNTER 2021-08-30 15:09 | Emergency (ER) | payer BC, OTHER ==
[~2021-08-30] VITALS: Ht 157.5 cm; Wt 90.9 kg
[2021-08-30 15:10] VITALS: BP 163/108
[2021-08-30] MEDS ORDERED: PROP10TA56 (15:36)
[2021-08-30] MEDS ORDERED: ACET-683 PO (15:36)
[2021-08-30 16:40] LABS: BASO % 0.3 % (0.0-1.0); EOS # 0.2 10^3/uL (0.0-0.5); EOS % 1.6 % (0.0-3.0); HEMATOCRIT 44.5 % (36.0-47.0); HEMOGLOBIN 13.8 g/dl (12.0-15.5); LYMPH # 2.5 10^3/uL (1.5-5.0); LYMPH % 20.5 % (24.0-44.0); MEAN CORPUSCULAR HEMOGLOBIN 24.8 pg (27.0-33.0); MEAN CORPUSCULAR VOLUME 79.9 fl (80.0-96.0); MONO # 0.9 10^3/uL (0.0-0.8); MONO % 7.5 % (2.0-8.0); NEUTROPHILS # 8.5 10^3/uL (1.5-8.5); NEUTROPHILS % 69.8 % (36.0-66.0); PLATELET COUNT, AUTOMATED 429 10^3/uL (150-450); RED BLOOD COUNT 5.57 10^6/uL (4.00-5.40); WHITE BLOOD COUNT 12.2 10^3/uL (4.0-10.0)
[2021-08-30] MEDS ORDERED: LORazepam 2 MG/ML VIAL IV STA (16:51)
[2021-08-30] MEDS ORDERED: NS 1,000 ML IV ONE (16:55)
[2021-08-30] MEDS ORDERED: ONDANSETRON 4MG/2ML VIAL IV ONE (16:55)
[2021-08-30 17:17] LABS: ALBUMIN 3.9 GM/DL (3.2-5.2); ALT/SGPT 23 U/L (12-78); BILIRUBIN,DIRECT 0.2 MG/DL (0.0-0.2); BILIRUBIN,TOTAL 0.4 MG/DL (0.2-1.0); BLOOD UREA NITROGEN 12 MG/DL (7-18); CALCIUM LEVEL 9.9 MG/DL (8.5-10.1); CARBON DIOXIDE LEVEL 23 MEQ/L (21-32); CHLORIDE LEVEL 107 MEQ/L (98-107); CREATININE FOR GFR 0.94 MG/DL (0.55-1.30); GLOMERULAR FILTRATION RATE > 60.0 (>60); GLUCOSE, FASTING 93 MG/DL (70-100); LIPASE 203 U/L (73-393); POTASSIUM SERUM 4.6 MEQ/L (3.5-5.1); SODIUM LEVEL 138 MEQ/L (136-145)
[2021-08-30] MEDS ORDERED: READI-CAT 2 PO ONE ×2 (17:30→18:30)
[2021-08-30] MEDS: READI-CAT 2 PO SCH ×2 (17:30→18:30)
[2021-08-30] MEDS ORDERED: READI-CAT 2 As Ordered ONE (17:38)
[2021-08-30 19:26] LABS: AMPHETAMINES LEVEL URINE NEGATIVE (NEGATIVE); BARBITURATES URINE NEGATIVE (NEGATIVE); BENZODIAZEPINES URINE NEGATIVE (NEGATIVE); CANNABINOIDS URINE NEGATIVE (NEGATIVE); COCAINE METABOLITE URINE NEGATIVE (NEGATIVE); METHADONE URINE NEGATIVE (NEGATIVE); OPIATES URINE POSITIVE (NEGATIVE); PHENCYCLIDINE URINE NEGATIVE (NEGATIVE)
[2021-08-30] MEDS ORDERED: BACTRIM 160MG/800MG DS TAB PO ONE (20:40)
[2021-08-30] MEDS ORDERED: BACT800T5 PO (20:44)
[2021-08-30] MEDS ORDERED: ONDA4TAB6 PO (20:44)
[2021-08-30] MEDS ORDERED: MIRA3350 PO (20:44)
== END 2021-08-30 21:10 | disposition home or self-care (01) ==
LOC: M ED 15:09
DX: N39.0 Urinary tract infection, site not specified (principal); K59.00 Constipation, unspecified; K21.9 Gastro-esophageal reflux disease without esophagitis; M54.50 Low back pain, unspecified; F41.9 Anxiety disorder, unspecified; F43.10 Post-traumatic stress disorder, unspecified; K50.90 Crohn's disease, unspecified, without complications; F17.200 Nicotine dependence, unspecified, uncomplicated; Z91.041 Radiographic dye allergy status; Z88.9 Allergy status to unspecified drugs, medicaments and biological substances; Z79.899 Other long term (current) drug therapy
CPT/HCPCS: 36415; 74176; 80048; 80076; 80307; 81001; 83690; 85025; 87086; 96374; 99284; J2060; J2405

== ENCOUNTER → 2021-12-26 | Outpatient (POV) | payer BC, OTHER ==
[~2021-12-26] VITALS: Ht 157.5 cm; Wt 93.1 kg
[~2021-12-26] MED LIST changes: +ACET-683 PO; +BACT800T5 PO; +PROP10TA56
[2021-12-26 15:00] VITALS: BP 153/109
== END ==
LOC: M IRPOV 14:52
PROVIDERS: ATTEND Radiology Diagnostic Radiology
DX: Z45.2 Encounter for adjustment and management of vascular access device (principal); Z88.8 Allergy status to other drugs, medicaments and biological substances; Z91.041 Radiographic dye allergy status

== ENCOUNTER 2022-01-01 09:00 | Outpatient (CLI) | payer BC ==
[~2022-01-01] VITALS: Ht 157.5 cm; Wt 86.3 kg
[2022-01-01 09:00] VITALS: BP 158/110
[~2022-01-01 09:00] MED LIST changes: +SODIUM CHLORIDE 0.9% INJ 10 ML SYR IV SCH
[2022-01-01] MEDS ORDERED: ALTEPLASE 2MG/2ML VIAL XX ONE (09:45)
[2022-01-01] MEDS ORDERED: ALTEPLASE 2MG/2ML VIAL XX PRN (10:15)
[2022-01-01 10:40] VITALS: BP 138/95
[2022-01-01] MEDS ORDERED: SODIUM CHLORIDE 0.9% INJ 10 ML SYR IV PRN (10:45)
== END 2022-01-01 10:40 | disposition home or self-care (01) ==
LOC: M INFU 09:00
PROVIDERS: ATTEND Radiology Diagnostic Radiology
DX: K50.90 Crohn's disease, unspecified, without complications (principal); Z88.8 Allergy status to other drugs, medicaments and biological substances
CPT/HCPCS: 36593; J1642; J2997

== ENCOUNTER → 2023-11-14 | Outpatient (REF) ==
[~2023-11-14] MED LIST changes: +FLUO-365; +FLUO-365 PO; -FLUO20CA22; -FLUO20CA22 PO; +ONDA-282 PO; -ONDA4TAB6 PO; -SODIUM CHLORIDE 0.9% INJ 10 ML SYR IV SCH
== END ==
LOC: M PLAIMG 11:46
PROVIDERS: ATTEND Internal Medicine
DX: M51.36 Other intervertebral disc degeneration, lumbar region (principal); M51.37 Other intervertebral disc degeneration, lumbosacral region

== ENCOUNTER → 2024-07-03 | Outpatient (CLI) | payer OTHER | LOC: M PLARAD 13:18 | PROVIDERS: ATTEND Pain Medicine Interventional Pain Medicine | DX: M54.16 Radiculopathy, lumbar region (principal) ==